=== PATIENT | female | born 1925 | race Caucasian/White ===

== ENCOUNTER 2016-09-09 16:05 | Inpatient (IN) | payer MEDICARE, BC ==
[~2016-09-09] VITALS: Ht 167.6 cm; Wt 72.1 kg
[2016-09-09] VITALS (8 sets, daily range): BP systolic 132–219; BP diastolic 62–105; PULSE 87–123; RESP 14–20; TEMP 97.7; O2SAT 92–97
[~2016-09-09 16:05] MED LIST: AMLO10 PO; CLIN150 PO; CYAN1000P IM; IRBE1TAB39 PO; LASI20TA PO; LIPI40TA PO; POTA-243 PO; PRAV40TA PO; SYNT112T PO; TOPR200T PO; TREN400T PO
[2016-09-09] MEDS ORDERED: SODIUM CHLORID 0.9% 500 ML INJ 500 ML IV ONE (16:30)
[2016-09-09] MEDS ORDERED: DILTIAZEM HCL 25 MG/5 ML VIAL IV ONE (16:30)
[2016-09-09] MEDS ORDERED: MORPHINE SULFATE 4 MG/ML INJ IV PUSH ONE (16:30)
[2016-09-09] MEDS ORDERED: SODIUM CHLORIDE 0.9% FLUSH 10 ML FLUSH IVF PRN (16:30)
[2016-09-09] MEDS ORDERED: ONDANSETRON HCL 4 MG/2 ML VIAL IVP ONE (16:30)
--- NOTE | 2016-09-09 16:35 | PD ---
HPI Chief Complaint: Fall Time Seen by Provider: 16:20 Travel History International Travel<30 days: No Contact w/Intl Traveler<30days: No Traveled to known affect area: No History of Present Illness HPI The patient is a 89-year-old female who presents emergency department after she fell off a stool at home. The patient states she was sitting on a stool when she turned to look in the kitchen and subsequently fell off the stool. The patient landed on her left side striking her left hip and left shoulder. She denies any head injury or neck pain after the fall. However, she was able to ambulate. The patient states she lives alone and thinks she fell last Thursday onto the floor. According to EMS the patient had a shortened and rotated left lower extremity. The patient does have a history of atrial fibrillation and was noted to be in RVR according to EMS, she received Cardizem 20 mg intravenously prior to arrival. The patient does complain of left hip pain that radiates into the left knee with a history of left knee osteoarthritis. The patient's pain is moderate, worse with movement, minimally alleviated at rest. She denies any headache, neck pain, chest pain, shortness of breath, nausea, vomiting, or abdominal pain. PFSH Past Medical History Arthritis: Yes High Cholesterol: Yes Cerebrovascular Accident: Yes (TIA APPROX 10 YEARS AGO LEFT SIDE WEAKNESS MOSTLY HIP AND LEG) Diminished Hearing: No Hypertension: Yes Thyroid Disease: Yes Menopausal: Yes Past Surgical History Abdominal Surgery: Yes (CYST REMOVED TO RIGHT LOWER ABD AREA REMOVED) Appendectomy: Yes Family History Narrative Family History Noncontributory Social History Alcohol Use: No Tobacco Use: No Substance Use: No Allergies-Medications (Allergen,Severity, Reaction): Coded Allergies: No Known Allergies (Verified , 03/14/10) Reported Meds & Prescriptions Reported Meds & Active Scripts Active Review of Systems Except as stated in HPI: all other systems reviewed are Neg General / Constitutional: No: Fever HENT: No: Headaches, Lightheadedness, Neck Pain Cardiovascular: No: Chest Pain or Discomfort Respiratory: No: Wheezing Gastrointestinal: No: Nausea, Vomiting, Abdominal Pain Musculoskeletal: Positive: Limited ROM, Pain Neurologic: No: Weakness, Dizziness, Paresthesia, Sensory Disturbance Physical Exam Narrative GENERAL: Awake, alert, pleasant 89-year-old female who appears her stated age and is in no acute respiratory distress. SKIN: Focused skin assessment warm/dry. HEAD: Atraumatic. Normocephalic. EYES: Pupils equal and round. No scleral icterus. No injection or drainage. ENT: No nasal bleeding or discharge. Dry mucous membranes. Upper dentures in place, no lower teeth are dentures noted. NECK: Trachea midline. No JVD. CARDIOVASCULAR: Irregularly irregular with a heart rate in the 120s. No audible murmur. RESPIRATORY: No accessory muscle use. Clear to auscultation. Breath sounds equal bilaterally. GASTROINTESTINAL: Abdomen soft, non-tender, nondistended. No rebound tenderness. MUSCULOSKELETAL: The left lower extremity is shortened and externally rotated. Superficial varicosities of the feet noted. Tenderness over the distal aspect the left femur and proximal left hip. Positive distal pulses via Doppler bilaterally. NEUROLOGICAL: Awake and alert. No obvious cranial nerve deficits. Motor grossly within normal limits. Normal speech. Patient is oriented to person, place, did not know the current date. Back: No tenderness over the thoracic or lumbar vertebrae. PSYCHIATRIC: Appropriate mood and affect; insight and judgment normal. Data Data Last Documented VS Vital Signs Date Time Temp Pulse Resp B/P Pulse Ox O2 Delivery O2 Flow Rate FiO2 09/09/16 17:10 87 18 141/62 97 Nasal Cannula 4 09/09/16 16:11 97.7 Orders Electrocardiogram (09/09/16 16:20) Complete Blood Count With Diff (09/09/16 16:20) Comprehensive Metabolic Panel (09/09/16 16:20) Prothrombin Time / Inr (Pt) (09/09/16 16:20) Act Partial Throm Time (Ptt) (09/09/16 16:20) Urinalysis - C+S If Indicated (09/09/16 16:20) Type And Screen (09/09/16 16:20) Chest, Single Ap (09/09/16 16:20) Femur (Ap & Lat/2vws) (09/09/16 16:20) Pelvis, Ap Only (Routine) (09/09/16 16:20) Iv Access Insert/Monitor (09/09/16 16:20) Urinary Catheter Insert/Apply (09/09/16 16:20) Oximetry (09/09/16 16:20) Ice/Cold Pack (09/09/16 16:20) Ecg Monitoring (09/09/16 16:20) Morphine Inj (Morphine Inj) (09/09/16 16:30) Ondansetron Inj (Zofran Inj) (09/09/16 16:30) Sodium Chloride 0.9% Flush (Ns Flush) (09/09/16 16:30) Diet Npo (09/09/16 Dinner) Diltiazem Inj (Cardizem Inj) (09/09/16 16:30) Sodium Chlorid 0.9% 500 Ml Inj (Ns 500 M (09/09/16 16:30) Creatine Kinase (Cpk) (09/09/16 16:20) Troponin I (09/09/16 16:20) Admit Order (Ed Use Only) (09/09/16 17:53) Aspirin Chew (Aspirin Chew) (09/09/16 18:00) Labs Laboratory Tests Test 09/09/16 16:25 White Blood Count 20.7 TH/MM3 Red Blood Count 4.25 MIL/MM3 Hemoglobin 13.9 GM/DL Hematocrit 42.3 % Mean Corpuscular Volume 99.6 FL Mean Corpuscular Hemoglobin 32.8 PG Mean Corpuscular Hemoglobin 32.9 % Concent Red Cell Distribution Width 14.1 % Platelet Count 171 TH/MM3 Mean Platelet Volume 9.4 FL Neutrophils (%) (Auto) 89.6 % Lymphocytes (%) (Auto) 2.4 % Monocytes (%) (Auto) 7.5 % Eosinophils (%) (Auto) 0.1 % Basophils (%) (Auto) 0.4 % Neutrophils # (Auto) 18.5 TH/MM3 Lymphocytes # (Auto) 0.5 TH/MM3 Monocytes # (Auto) 1.6 TH/MM3 Eosinophils # (Auto) 0.0 TH/MM3 Basophils # (Auto) 0.1 TH/MM3 CBC Comment DIFF FINAL Differential Comment Prothrombin Time 11.6 SEC Prothromb Time International 1.0 RATIO Ratio Activated Partial 28.9 SEC Thromboplast Time Sodium Level 145 MEQ/L Potassium Level 3.5 MEQ/L Chloride Level 107 MEQ/L Carbon Dioxide Level 26.0 MEQ/L Anion Gap 12 MEQ/L Blood Urea Nitrogen 22 MG/DL Creatinine 0.83 MG/DL Estimat Glomerular Filtration 65 ML/MIN Rate Random Glucose 99 MG/DL Calcium Level 9.2 MG/DL Total Bilirubin 1.8 MG/DL Aspartate Amino Transf 31 U/L (AST/SGOT) Alanine Aminotransferase 27 U/L (ALT/SGPT) Alkaline Phosphatase 118 U/L Total Creatine Kinase 139 U/L Troponin I 0.06 NG/ML Total Protein 6.1 GM/DL Albumin 3.0 GM/DL Blood Type A POSITIVE Antibody Screen NEGATIVE MDM Medical Decision Making Medical Screen Exam Complete: Yes Emergency Medical Condition: Yes Medical Record Reviewed: Yes Interpretation(s) EKG reveals a fibrillation with RVR with a rate of 118. Nonspecific T-wave inversions in V5, V6, 1, and aVL. Last Impressions Pelvis X-Ray 09/09/[id number] Signed Impressions: Service Date/Time: Friday, September 09, 2016 16:34 - CONCLUSION: Acute comminuted intertrochanteric fracture of the left proximal femur. Degenerative changes and scoliosis of the lower lumbar spine. Degenerative changes involving the hip joints bilaterally. Cornelio Ortega MD Femur X-Ray 09/09/[id number] Signed Impressions: Service Date/Time: Friday, September 09, 2016 16:34 - CONCLUSION: Acute comminuted intertrochanteric fracture of the left proximal femur. Cornelio Ortega MD Chest X-Ray 09/09/161619 Signed Impressions: Service Date/Time: Friday, September 09, 2016 16:36 - CONCLUSION: 1. Cardiomegaly with mild positive fluid balance. 2. Elevation of the left hemidiaphragm of unknown chronicity. 3. Mild bibasilar airspace disease and small bilateral pleural effusions likely related to positive fluid balance and atelectasis. 4. Mild L1 superior endplate compression deformity of unknown chronicity given lack of recent prior exams. Consider MRI examination for further evaluation if patient has focal pain on palpation of the L2 spinous process. Edmond Montes MD Laboratory Tests Test 09/09/16 16:25 White Blood Count 20.7 TH/MM3 Red Blood Count 4.25 MIL/MM3 Hemoglobin 13.9 GM/DL Hematocrit 42.3 % Mean Corpuscular Volume 99.6 FL Mean Corpuscular Hemoglobin 32.8 PG Mean Corpuscular Hemoglobin 32.9 % Concent Red Cell Distribution Width 14.1 % Platelet Count 171 TH/MM3 Mean Platelet Volume 9.4 FL Neutrophils (%) (Auto) 89.6 % Lymphocytes (%) (Auto) 2.4 % Monocytes (%) (Auto) 7.5 % Eosinophils (%) (Auto) 0.1 % Basophils (%) (Auto) 0.4 % Neutrophils # (Auto) 18.5 TH/MM3 Lymphocytes # (Auto) 0.5 TH/MM3 Monocytes # (Auto) 1.6 TH/MM3 Eosinophils # (Auto) 0.0 TH/MM3 Basophils # (Auto) 0.1 TH/MM3 CBC Comment DIFF FINAL Differential Comment Prothrombin Time 11.6 SEC Prothromb Time International 1.0 RATIO Ratio Activated Partial 28.9 SEC Thromboplast Time Sodium Level 145 MEQ/L Potassium Level 3.5 MEQ/L Chloride Level 107 MEQ/L Carbon Dioxide Level 26.0 MEQ/L Anion Gap 12 MEQ/L Blood Urea Nitrogen 22 MG/DL Creatinine 0.83 MG/DL Estimat Glomerular Filtration 65 ML/MIN Rate Random Glucose 99 MG/DL Calcium Level 9.2 MG/DL Total Bilirubin 1.8 MG/DL Aspartate Amino Transf 31 U/L (AST/SGOT) Alanine Aminotransferase 27 U/L (ALT/SGPT) Alkaline Phosphatase 118 U/L Total Creatine Kinase 139 U/L Troponin I 0.06 NG/ML Total Protein 6.1 GM/DL Albumin 3.0 GM/DL Blood Type A POSITIVE Antibody Screen NEGATIVE Differential Diagnosis Differential diagnosis includes A. fib with RVR, pelvic fracture, hip fracture, femur fracture, dislocation, rhabdomyolysis, dehydration, UTI. Narrative Course IV was established, labs are drawn and sent, and the patient was placed on cardiac telemetry monitoring and continuous pulse oximetry monitoring. EKG was ordered and interpreted. The patient received Cardizem 20 g intravenously by EMS prior to arrival, however, still had A. fib with RVR with elevated blood pressure, therefore, was administered Cardizem 15 mg intravenously and morphine 4 mg intravenously. The patient was also placed on IV fluids and received Zofran. X-ray of the pelvis, femur, and chest were obtained. Type and screen was sent to lab. Acosta catheter was ordered. Chest x-ray reveals what appears to be mild pulmonary edema and/or atelectasis. X-ray the left hand reveals a left intertrochanteric fracture. The patient's heart rate did improve into the 70s with the IV Cardizem, troponin was positive at 0.06, most likely related to her A. fib with RVR. The patient was administered aspirin 162 mg orally. The patient will be admitted for A. fib with RVR with left intertrochanteric fracture. The patient's primary physician is a physician in the [facility] who does not have privileges, therefore, the on-call medical service was paged for admission. Physician Communication Physician Communication The on-call medical service was paged for admission. I discussed the patient with Dr. Costa who agrees with admission. Diagnosis Primary Impression: Intertrochanteric fracture of left femur Qualified Code: S72.142A - Closed displaced intertrochanteric fracture of left femur, initial encounter Additional Impression: Atrial fibrillation with RVR Admitting Information Admitting Physician Requests: Admit Condition: Stable Zach Lubin MD Sep 09, 2016 16:35
[2016-09-09 17:02] LABS: AUTOMATED NEUTROPHIL # 18.5 TH/MM3 (1.8-7.7); BASOPHIL # 0.1 TH/MM3 (0-0.2); BASOPHIL % 0.4 % (0.0-2.0); EOSINOPHIL % 0.1 % (0.0-4.0); HEMATOCRIT 42.3 % (35.0-46.0); HEMO FLAGS DIFF FINAL; LYMPH % 2.4 % (9.0-44.0); LYMPHOCYTE # 0.5 TH/MM3 (1.0-4.8); MEAN CELL VOLUME 99.6 FL (80.0-100.0); MEAN CORPUSCULAR HEMOGLOBIN 32.8 PG (27.0-34.0); MEAN CORPUSCULAR HGB CONC 32.9 % (32.0-36.0); MONO % 7.5 % (0.0-8.0); NEUT % 89.6 % (16.0-70.0); PLATELET COUNT 171 TH/MM3 (150-450); RED BLOOD COUNT 4.25 MIL/MM3 (4.00-5.30); RED CELL DISTRIBUTION WIDTH 14.1 % (11.6-17.2); WHITE BLOOD COUNT 20.7 TH/MM3 (4.0-11.0)
--- NOTE | 2016-09-09 17:02 | RADRPT ---
EXAM DATE/TIME: 09/09/2016 16:34 [facility] COMPARISON: No previous studies available for comparison. INDICATIONS : Trauma. Left hip pain after fall. MEDICAL HISTORY : None. SURGICAL HISTORY : None. ENCOUNTER: Initial ACUITY: 1 day PAIN SCORE: 10/10 LOCATION: Pelvis. FINDINGS: There is an acute comminuted intertrochanteric fracture of the left proximal femur. Degenerative alexander ges and scoliosis of the visualized portion of the lower lumbar spine are noted. Degenerative changes are also noted involving the hip joints bilaterally. CONCLUSION: Acute comminuted intertrochanteric fracture of the left proximal femur. Degenerative changes and scoliosis of the lower lumbar spine. Degenerative changes involving the hip joints bilate edward. Cornelio rOtega MD on September 09, 2016 at 16:56 Board Certified Radiologist. This report was verified electronically.
[2016-09-09 17:12] LABS: APTT (PATIENT) 28.9 SEC (24.3-30.1); PROTHROMBIN TIME - PATIENT 11.6 SEC (9.8-11.6)
--- NOTE | 2016-09-09 17:12 | RADRPT ---
EXAM DATE/TIME: 09/09/2016 16:36 [facility] COMPARISON: No previous studies available for comparison. INDICATIONS : Chest pain after fall. MEDICAL HISTORY : Hypercholesterolemia. Hypertension TIA. SURGICAL HISTORY : None. ENCOUNTER: Initial ACUITY: 1 day PAIN SCORE: Non-responsive. LOCATION: Bilateral chest FINDINGS: There is elevation of the left hemidiaphragm with bilateral mild lower lobe airspace disease and trac e pleural effusion versus pleural thickening. Lungs are hyperaerated with diffuse interstitial promin ence and patchy airspace opacities bilaterally. Cardiac silhouette is enlarged. There is mild nayan imer deformity of the L2 vertebral body of unknown chronicity given lack of recent prior comparisons. CONCLUSION: 1. Cardiomegaly with mild positive fluid balance. 2. Elevation of the left hemidiaphragm of unknown chronicity. 3. Mild bibasilar airspace disease and small bilateral pleural effusions likely related to positive f luid balance and atelectasis. 4. Mild L1 superior endplate compression deformity of unknown chronicity given lack of recent prior e xams. Consider MRI examination for further evaluation if patient has focal pain on palpation of the L 2 spinous process. Edmond Montes MD on September 09, 2016 at 17:05 Board Certified Radiologist. This report was verified electronically.
--- NOTE | 2016-09-09 17:13 | RADRPT ---
EXAM DATE/TIME: 09/09/2016 16:34 [facility] COMPARISON: No previous studies available for comparison. INDICATIONS : Left femur pain after fall. MEDICAL HISTORY : None. SURGICAL HISTORY : None. ENCOUNTER: Initial ACUITY: 1 day PAIN SCORE: 10/10 LOCATION: Left hip. FINDINGS: There is an acute comminuted intertrochanteric fracture of the left proximal femur. CONCLUSION: Acute comminuted intertrochanteric fracture of the left proximal femur. Cornelio Ortega MD on September 09, 2016 at 17:07 Board Certified Radiologist. This report was verified electronically.
[2016-09-09 17:31] LABS: ANION GAP 12 MEQ/L (5-15); AST (GOT) 31 U/L (15-37); BLOOD UREA NITROGEN 22 MG/DL (7-18); CHLORIDE 107 MEQ/L (98-107); GLOMERULAR FILTRATION RATE 65 ML/MIN (>89); POTASSIUM 3.5 MEQ/L (3.5-5.1); SODIUM (NA) 145 MEQ/L (136-145)
[2016-09-09 17:35] LABS: ALKALINE PHOSPHATASE 118 U/L (45-117); ALT (GPT) 27 U/L (10-53); CREATINE KINASE 139 U/L (26-192); TOTAL BILIRUBIN ADULT 1.8 MG/DL (0.2-1.0)
[2016-09-09] MEDS ORDERED: ASPIRIN 81 MG CHEW TAB CHEW ONE (18:00)
[2016-09-09 19:02] LABS: BACTERIA, URINE MANY /hpf; BLOOD, URINE TRACE (NEG); GLUCOSE,URINE NEG (NEG); KETONE, URINE 10 mg/dL (NEG); NITRITE,URINE NEG (NEG); PH, URINE 6.5 (5.0-8.5); URINE COLOR YELLOW (YELLW/STRAW)
[2016-09-09 19:04] LABS: COMMENT (UR) CATH-CULTURE IND; CULTURE IF INDICATED CATH CULTURE IND
[2016-09-09] MEDS ORDERED: SODIUM CHLORIDE 0.9% FLUSH 10 ML FLUSH IV FLUSH PRN (20:45)
[2016-09-09] MEDS ORDERED: NALOXONE HCL 0.4 MG/ML AMP IV PRN (20:45)
[2016-09-09] MEDS ORDERED: SODIUM CHLORIDE 0.9% FLUSH 10 ML FLUSH IV FLUSH SCH (21:00)
[2016-09-09] MEDS: cefTRIAXone INJ 1,000 MG in SODIUM CHLORIDE 0.9% INJ 100 ML IV SCH (21:51)
--- NOTE | 2016-09-09 21:54 | HHI.HP ---
[facility] Unknown Admission Diagnosis left intertrochanteric fracture, A. fib with RVR Diagnoses: (1) Atrial fibrillation with RVR (2) Intertrochanteric fracture of left femur Chief Complaint: fall at home Travel History International Travel<30 Days: No Contact w/Intl Traveler <30 Da: No Traveled to Known Affected Are: No History of Present Illness Written by Jennifer Crouch, acting as scribe for Dr. Guillen on 09/09/16 at 21:21. Difficult history to obtain; patient has some mild confusion - short term memory impairment likely secondary to UTI. The patient states she was sitting at the kitchen table on Thursday; turned around on a stool she was sitting on; the stool toppled over and she fell on the floor on her buttocks with most of the impact occurring on the right side when she hit a kitchen cabinet; the patient states that she did not pass out; did not hit her head. She called her son who called her doctor who alerted EMS. The patient states that the ambulance brought her to [facility], she stayed overnight and she was sent home. Does not drive. The patient reports that she lives alone. Her 2 years ago. The patient's son lives in [place]. Wheezing, chest tightness, and shortness of breath for a couple of days prior to fall - worse at night. Patient reports a history of atrial fibrillation, hypertension, CVA, hypothyroidism. No dizziness, n/v/d, hematuria, dysuria, black or red colored stool. Has been riding a scooter for about [address] 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 Review of Systems Except as stated in HPI: all other systems reviewed are Neg Past Family Social History Past Medical History Atrial fibrillation s/p ablation Hypertension - takes Lopressor and one more antihypertensive medication . Past Surgical History Appendectomy Partial colectomy? Colonoscopy . Reported Medications awaiting medication reconciliation . Allergies: Coded Allergies: No Known Allergies (Verified , 09/09/16) Active Ordered Medications Current Medications Morphine Sulfate (Morphine Inj) 2 mg ONCE ONCE IV PUSH Last administered on 16:56; Start 09/09/16 at 16:30; Stop 09/09/16 at 16:31; Status DC Ondansetron HCl (Zofran Inj) 4 mg ONCE ONCE IVP Last administered on 16:55; Start 09/09/16 at 16:30; Stop 09/09/16 at 16:31; Status DC Sodium Chloride (NS Flush) 2 ml UNSCH PRN IVF FLUSH AFTER USING IV ACCESS; Start 09/09/16 at 16:30; Stop 09/09/16 at 20:54; Status DC Diltiazem HCl 15 mg 15 mg ONCE ONCE IV Last administered on 09/09/16 16:56; Start 09/09/16 at 16:30; Stop 09/09/16 at 16:31; Status DC Sodium Chloride (NS 500 ml Inj) 500 ml @ 500 mls/hr BOLUS ONCE IV Last administered on 09/09/16 16:57; Start 09/09/16 at 16:30; Stop 09/09/16 at 17:29 ; Status DC Aspirin (Aspirin Chew) 162 mg ONCE ONCE CHEW ; Start 09/09/16 at 18:00; Stop at 18:01; Status DC Sodium Chloride (NS Flush) 2 ml UNSCH PRN IV FLUSH FLUSH AFTER USING IV ACCESS ; Start 09/09/16 at 20:45 Sodium Chloride (NS Flush) 2 ml BID IV FLUSH ; Start 09/09/16 at 21:00 Naloxone HCl 0.4 mg 0.4 mg UNSCH PRN IV SEE LABEL COMMENTS; Start 09/09/16 at 20:45 Ceftriaxone Sodium/Sodium Chloride (Rocephin Inj/NS Inj) 100 ml @ 200 mls/hr Q24H IV ; Start 09/09/16 at 21:00 . Family History Sisters and father with heart problems . Social History Tobacco: Quit smoking many years ago Alcohol: extremely rare social use . Physical Exam Vital Signs Vital Signs Date Time Temp Pulse Resp B/P Pulse Ox O2 Delivery O2 Flow Rate FiO2 09/09/16 19:00 97 14 155/89 96 Nasal Cannula 4 09/09/16 19:00 97 14 95 Nasal Cannula 4 09/09/16 18:37 102 18 161/91 95 Nasal Cannula 4 09/09/16 17:10 87 18 141/62 97 Nasal Cannula 4 09/09/16 16:25 123 18 153/75 92 Room Air 09/09/16 16:24 92 Room Air 09/09/16 16:20 123 20 92 Room Air 09/09/16 16:11 97.7 110 20 219/105 Physical Exam GENERAL: This is an elderly female patient, in no apparent distress. SKIN: No rashes, ecchymoses or lesions. Cool and dry. HEAD: Atraumatic. Normocephalic. EYES: No scleral icterus. No injection or drainage. ENT: Nose without bleeding, purulent drainage. NECK: Trachea midline. No JVD or lymphadenopathy. CARDIOVASCULAR: Regular rate and rhythm without murmurs, gallops, or rubs. Aortic area with systolic murmur. Left lower extremity larger and more taut, erythematous but not hot to touch. RESPIRATORY: Breath sounds diminished, equal bilaterally. No wheezes, rales, or rhonchi. GASTROINTESTINAL: Abdomen soft, non-tender, nondistended. No guarding. MUSCULOSKELETAL: Extremities without clubbing, cyanosis. NEUROLOGICAL: Awake and alert; confused with short term memory impairment likely secondary to UTI. . Laboratory Laboratory Tests Test 09/09/16 09/09/16 16:25 18:35 White Blood Count 20.7 Red Blood Count 4.25 Hemoglobin 13.9 Hematocrit 42.3 Mean Corpuscular Volume 99.6 Mean Corpuscular Hemoglobin 32.8 Mean Corpuscular Hemoglobin 32.9 Concent Red Cell Distribution Width 14.1 Platelet Count 171 Mean Platelet Volume 9.4 Neutrophils (%) (Auto) 89.6 Lymphocytes (%) (Auto) 2.4 Monocytes (%) (Auto) 7.5 Eosinophils (%) (Auto) 0.1 Basophils (%) (Auto) 0.4 Neutrophils # (Auto) 18.5 Lymphocytes # (Auto) 0.5 Monocytes # (Auto) 1.6 Eosinophils # (Auto) 0.0 Basophils # (Auto) 0.1 CBC Comment DIFF FINAL Differential Comment Prothrombin Time 11.6 Prothromb Time International 1.0 Ratio Activated Partial 28.9 Thromboplast Time Sodium Level 145 Potassium Level 3.5 Chloride Level 107 Carbon Dioxide Level 26.0 Anion Gap 12 Blood Urea Nitrogen 22 Creatinine 0.83 Estimat Glomerular Filtration 65 Rate Random Glucose 99 Calcium Level 9.2 Total Bilirubin 1.8 Aspartate Amino Transf 31 (AST/SGOT) Alanine Aminotransferase 27 (ALT/SGPT) Alkaline Phosphatase 118 Total Creatine Kinase 139 Troponin I 0.06 Total Protein 6.1 Albumin 3.0 Blood Type A POSITIVE Antibody Screen NEGATIVE Urine Color YELLOW Urine Turbidity HAZY Urine pH 6.5 Urine Specific [place] 1.015 Urine Protein 30 Urine Glucose (UA) NEG Urine Ketones 10 Urine Occult Blood TRACE Urine Nitrite NEG Urine Bilirubin NEG Urine Urobilinogen LESS THAN 2.0 Urine Leukocyte Esterase LARGE Urine RBC 2 Urine WBC 48 Urine Amorphous Sediment RARE Urine Bacteria MANY Microscopic Urinalysis Comment CATH-CULTURE IND Date/Time Procedure Status Source Growth 09/09/16 18:35 Urine Culture Received Urine Catheterized Urine Pending Result Diagram: 09/09/16 1625 09/09/16 162 Imaging Last Impressions Pelvis X-Ray 09/09/16 1620 Signed Impressions: Service Date/Time: Friday, September 09, 2016 16:34 - CONCLUSION: Acute comminuted intertrochanteric fracture of the left proximal femur. Degenerative changes and scoliosis of the lower lumbar spine. Degenerative changes involving the hip joints bilaterally. Cornelio Ortega MD Femur X-Ray 09/09/16 1620 Signed Impressions: Service Date/Time: Friday, September 09, 2016 16:34 - CONCLUSION: Acute comminuted intertrochanteric fracture of the left proximal femur. Cornelio Ortega MD Chest X-Ray 09/09/160 Signed Impressions: Service Date/Time: Friday, September 09, 2016 16:36 - CONCLUSION: 1. Cardiomegaly with mild positive fluid balance. 2. Elevation of the left hemidiaphragm of unknown chronicity. 3. Mild bibasilar airspace disease and small bilateral pleural effusions likely related to positive fluid balance and atelectasis. 4. Mild L1 superior endplate compression deformity of unknown chronicity given lack of recent prior exams. Consider MRI examination for further evaluation if patient has focal pain on palpation of the L2 spinous process. Edmond Montes MD . Assessment and Plan Problem List: (1) Intertrochanteric fracture of left femur ICD Code: S72.142A Status: Acute (2) Atrial fibrillation with RVR ICD Code: I48.91 Status: Acute Assessment and Plan 89-year-old female status post fall at home with subsequent acute left hip fracture; we have been asked to admit for medical management including atrial fibrillation, bilateral pleural effusions, and UTIs. Acute comminuted intertrochanteric fracture of the left proximal femur - consult orthopedic surgeon - assistance appreciated Atrial fibrillation with RVR - received two doses of IV diltiazem via EMS - continuous cardiac telemetry to monitor rate and for further arrhythmia - check serial cardiac enzymes and EKGs - initial EKGs reviewed - c/w left ventricular hypertrophy; no ischemic changes seen Chest x-ray: cardiomegaly with small bilateral pleural effusions related to positive fluid balance and atelectasis. Left hemidiaphragm elevation of unknown chronicity. - 2-D echocardiogram to assess cardiac structure and function - BNP - Consult patient's hot billet shear operator Dr. Johnson - Strict I and Os - insert gomez catheter for accurate I and Os Left lower extremity swelling - possible fracture Thursday? - bilateral lower extremity doppler to r/o DVT UTI - UA c/w UTI - Ceftriaxone 1 g IV every 24 hours - Await urine culture results and adjust treatment as indicated Hypothyroidism - Check TSH Awaiting medication reconciliation; nursing order written to contact pharmacy or patient's PCP - patient states her son and grandchild do not know her meds. Nurses are to notify ortho of blood thinner name. . This note was transcribed by [email or web address] [Jennifer Crouch]. I, Dr. Pierre Guillen personally performed the history, physical exam, and medical decision making; and confirmed the accuracy of the information in the transcribed note. Authenticated by Dr. Pierre Guillen on 09/09/16 at 21:21. Discussed Condition With ER physician, RN, and patient Physician Certification 2 Midnight Certification Type: Admission for Inpatient Services Order for Inpatient Services The services are ordered in accordance with Medicare regulations or non- Medicare payer requirements, as applicable. In the case of services not specified as inpatient-only, they are appropriately provided as inpatient services in accordance with the 2-midnight benchmark. Estimated LOS (days): 3 days is the estimated time the patient will need to remain in the hospital, assuming treatment plan goals are met and no additional complications. Post-Hospital Plan: Not yet determined Problem Qualifiers (1) Intertrochanteric fracture of left femur: Qualified Code: S72.142A - Closed displaced intertrochanteric fracture of left femur, initial encounter Jennifer Crouch Sep 09, 2016 21:54 Pierre Guillen MD Sep 10, 2016 00:55
[2016-09-10] VITALS (9 sets, daily range): BP systolic 117–140; BP diastolic 59–103; PULSE 72–112; RESP 13–20; TEMP 96.4–97.9; O2SAT 91–99
[2016-09-10] MEDS ORDERED: POTASSIUM CHLORIDE 25 MEQ EFFERVESCENT TAB PO ONE
--- NOTE | 2016-09-10 00:05 | RADRPT ---
EXAM DATE/TIME: 09/09/2016 23:29 [facility] COMPARISON: No previous studies available for comparison. INDICATIONS : Bilateral leg swelling. MEDICAL HISTORY : Hypercholesterolemia. Hypertension. Thyroid disease. Cerebrovascular accident. Arthritis. SURGICAL HISTORY : Appendectomy. Cyst removal. ENCOUNTER: Initial ACUITY: 1 day PAIN SCORE: 6/10 LOCATION: Bilateral legs. TECHNIQUE: Venous ultrasound of the left and right leg was performed from the inguinal ligament to the proximal calf. Real-time, color Doppler and spectral tracing, compression and augmentation techniques were us ed. FINDINGS: RIGHT LEG: There is normal compressibility of the deep venous system from the inguinal region to the proximal ca lf. No echogenic clot is seen in the lumen of the common femoral, femoral, popliteal, and posterior tibial veins. There is a normal response of the venous system to proximal and distal augmentation an d respiration. LEFT LEG: There is normal compressibility of the deep venous system from the inguinal region to the proximal ca lf. No echogenic clot is seen in the lumen of the common femoral, femoral, popliteal, and posterior tibial veins. There is a normal response of the venous system to proximal and distal augmentation an d respiration. CONCLUSION: Normal examination. Carolee Huffman MD on September 10, 2016 at 0:04 Board Certified Radiologist. This report was verified electronically.
[2016-09-10] MEDS ORDERED: METOPROLOL TARTRATE 25 MG TAB PO PRN (00:30)
[2016-09-10] MEDS ORDERED: LACTATED RINGER'S 1000 ML IV PRN (00:30)
[2016-09-10] MEDS ORDERED: CHLORHEXIDINE GLUCONATE 2 % 1 PACK (2 CLOTHS) TOPICAL PRN (00:30)
[2016-09-10] MEDS ORDERED: INSULIN HUMAN REGULAR 1,000 UNITS/10 ML VIAL SQ PRN (00:30)
[2016-09-10] MEDS ORDERED: SODIUM CHLORID 0.9% 500 ML IV PRN (00:30)
[2016-09-10] MEDS ORDERED: POVIDONE IODINE 5% (ANTISEPSIS KIT) 4 APPLICATIONS EACH NARE PRN (00:30)
[2016-09-10] MEDS ORDERED: FUROSEMIDE 20 MG/2 ML VIAL IV PUSH ONE ×2 (01:00)
[2016-09-10] MEDS ORDERED: MORPHINE SULFATE 4 MG/ML INJ IV PUSH PRN ×2 (01:00→08:15)
[2016-09-10 04:15] LABS: AUTOMATED NEUTROPHIL # 12.9 TH/MM3 (1.8-7.7); BASOPHIL # 0.2 TH/MM3 (0-0.2); BASOPHIL % 1.1 % (0.0-2.0); EOSINOPHIL # 0.1 TH/MM3 (0-0.4); EOSINOPHIL % 0.6 % (0.0-4.0); HEMATOCRIT 35.8 % (35.0-46.0); LYMPH % 3.1 % (9.0-44.0); LYMPHOCYTE # 0.5 TH/MM3 (1.0-4.8); MEAN CELL VOLUME 98.6 FL (80.0-100.0); MEAN CORPUSCULAR HEMOGLOBIN 32.9 PG (27.0-34.0); MEAN CORPUSCULAR HGB CONC 33.3 % (32.0-36.0); MONO % 9.5 % (0.0-8.0); NEUT % 85.7 % (16.0-70.0); PLATELET COUNT 156 TH/MM3 (150-450); RED BLOOD COUNT 3.63 MIL/MM3 (4.00-5.30); RED CELL DISTRIBUTION WIDTH 14.2 % (11.6-17.2); WHITE BLOOD COUNT 15.1 TH/MM3 (4.0-11.0)
[2016-09-10 04:17] LABS: HEMO FLAGS AUTO DIFF
[2016-09-10 04:40] LABS: BICARBONATE 28.4 MEQ/L (21.0-32.0)
[2016-09-10 05:47] LABS: OVALOCYTES 1+ (NORMAL); SCAN/DIFF AUTO DIFF CONFIRMED
--- NOTE | 2016-09-10 06:56 | PD.ORT.PN ---
Subjective Subjective Remarks Fall from barstool in kitchen. Unable to ambulate and pain with left hip motion. X-rays show and a left intertrochanteric femur fracture Objective Vitals Vital Signs Date Time Temp Pulse Resp B/P Pulse Ox O2 Delivery O2 Flow Rate FiO2 09/10/16 04:00 97.9 91 20 133/64 97 09/10/16 00:17 96.7 96 20 140/103 91 09/09/16 23:00 106 15 141/74 97 Nasal Cannula 4 09/09/16 21:00 100 14 132/73 97 Nasal Cannula 4 09/09/16 19:00 97 14 155/89 96 Nasal Cannula 4 09/09/16 19:00 97 14 95 Nasal Cannula 4 09/09/16 18:37 102 18 161/91 95 Nasal Cannula 4 09/09/16 17:10 87 18 141/62 97 Nasal Cannula 4 09/09/16 16:25 123 18 153/75 92 Room Air 09/09/16 16:24 92 Room Air 09/09/16 16:20 123 20 92 Room Air 09/09/16 16:11 97.7 110 20 219/105 I/O 09/09/16 09/09/16 09/09/16 09/10/16 09/10/16 09/10/16 07:00 15:00 23:00 07:00 15:00 23:00 Output Total 400 ml Balance -400 ml Output Urine Total 400 ml # Bowel Movements 0 Result Diagram: 09/10/16 0334 09/10/16 0334 Other Results Laboratory Tests Test 09/09/16 16:25 Prothrombin Time 11.6 SEC (9.8-11.6) Prothromb Time International 1.0 RATIO Ratio Imaging Last 24 hours Impressions Pelvis X-Ray 09/09/161619 Signed Impressions: Service Date/Time: Friday, September 09, 2016 16:34 - CONCLUSION: Acute comminuted intertrochanteric fracture of the left proximal femur. Degenerative changes and scoliosis of the lower lumbar spine. Degenerative changes involving the hip joints bilaterally. Cornelio Ortega MD Femur X-Ray 09/09/161619 Signed Impressions: Service Date/Time: Friday, September 09, 2016 16:34 - CONCLUSION: Acute comminuted intertrochanteric fracture of the left proximal femur. Cornelio Ortega MD Chest X-Ray 09/09/16 1620 Signed Impressions: Service Date/Time: Friday, September 09, 2016 16:36 - CONCLUSION: 1. Cardiomegaly with mild positive fluid balance. 2. Elevation of the left hemidiaphragm of unknown chronicity. 3. Mild bibasilar airspace disease and small bilateral pleural effusions likely related to positive fluid balance and atelectasis. 4. Mild L1 superior endplate compression deformity of unknown chronicity given lack of recent prior exams. Consider MRI examination for further evaluation if patient has focal pain on palpation of the L2 spinous process. Edmond Montes MD Objective Remarks Bilateral upper extremities: Full range of motion neurovascularly intact Right lower extremity: Full range of motion and neurovascularly intact Left lower extremity: Pain with hip range of motion. No tenderness with knee or ankle motion. There is some shortening of the leg. Intact sensation distally with good capillary refills Assessment & Plan Assessment and Plan Left intertrochanteric femur fracture Nothing by mouth Surgery this morning with Dr. Gómez for IM nail fixation sign consents Hemanth Ledesma Jr. Sep 10, 2016 06:55
[2016-09-10] MEDS ORDERED: SODIUM CHLOR 0.9% 250 ML INJ 250 ML ONE (07:00)
[2016-09-10] MEDS ORDERED: GENTAMICIN SULFATE 80 MG/2 ML VIAL ONE (07:00)
[2016-09-10] MEDS ORDERED: VANCOMYCIN HCL 1000 MG VIAL ONE (07:00)
[2016-09-10] MEDS ORDERED: ceFAZolin INJ 1,000 MG VIAL ONE (07:00)
--- NOTE | 2016-09-10 07:15 | EKG ---
Date Performed: 09/09/2016 Time Performed: 16:26:56 PTAGE: 89 years EKG: BASELINE ARTIFACT PRESENT. ATRIAL FIBRILLATION WITH RAPID VENTRICULAR RESPONSE Nonspecific ST-T wave changes ABNORMAL ECG COMPARED TO PRIOR ELECTROCARDIOGRAM, Rapid atrial fibrillation and ST- T wave changes are present. PREVIOUS TRACING : 02/05/1997 15.28 DOCTOR: Mario Dugan Interpretating Date/Time 09/10/2016 07:15:00
[2016-09-10] MEDS ORDERED: ACETAMINOPHEN 1000 MG/100 ML VIAL IV ONE (07:22)
[2016-09-10] MEDS ORDERED: BUPIVACAINE/EPINEPHRINE 0.25% PF 10 ML VIAL INFIL ONE (08:01)
--- NOTE | 2016-09-10 08:01 | EKG ---
Date Performed: 09/09/2016 Time Performed: 22:14:41 PTAGE: 89 years EKG: BASELINE ARTIFACT PRESENT. ProbableATRIAL FIBRILLATION WITH RAPID VENTRICULAR RESPONSE Alt jimenez I cannot rule out the presence of some P waves. Nonspecific ST-T wave changes ABNORMAL ECG NO S IGNIFICANT CHANGE FROM PRIOR ELECTROCARDIOGRAM. PREVIOUS TRACING : 09/09/2016 16.26 DOCTOR: Mario Dugan Interpretating Date/Time 09/10/2016 08:01:36
[2016-09-10] MEDS ORDERED: ONDANSETRON HCL 4 MG/2 ML VIAL IVP PRN (08:15)
[2016-09-10] MEDS ORDERED: ERGOCALCIFEROL (VIT D2) 50,000 UNIT CAP PO ONE (08:15)
[2016-09-10] MEDS ORDERED: SODIUM CHLORIDE 0.9% FLUSH 5 ML FLUSH IVF PRN (08:15)
--- NOTE | 2016-09-10 08:21 | PD.OP ---
cc: Hany Goldstein MD Operative Report Date of Surgery: Sep 10, 2016 Preoperative Diagnosis: Displaced left hip intertrochanteric fracture Postoperative Diagnosis: Procedure: Left hip reduction and intramedullary nail fixation Anesthesia: Gen. Surgeon: Hany Goldstein Senior Support Engineer(s): Jeremías Ledesma PA-C The surgical procedure was assisted by my physician assistant service manager. My P.A. presence was necessary throughout this case for the manipulation and positioning of the surgical extremity. My P.A. was assisting me throughout the duration of this procedure. The skill set of a physician assistant service manager was medically necessary to complete this procedure. During the surgical case the surgical corsetier was working at the back table and the physician assistant service manager was directly assisting me. Operation and Findings: Implants used: [11]mm 125 Synthes TFNA short troch nail Plan of activity: Weight-bear as tolerated Patient was seen and evaluated preoperatively. The patient has significant hip pain from intertrochanteric hip fracture. The risk and benefits of surgery were discussed in depth with the patient to include bleeding infection nonunion malunion and need for hip replacement painful hardware as well as medical competitions including but not stroke heart attack and . Informed consent was obtained. Operative site was marked. Patient was brought to the operating room and placed on fracture table. IV sedation was administered by anesthesiologist. Timeout procedure was performed. Hip and leg were prepped with alcohol followed by DuraPrep and draped in the usual sterile fashion. IV antibiotics were given prior to incision. Procedure began with reduction of fracture. Traction was applied. The leg was manipulated to achieve reduction. Excellent reduction was achieved. Fluoroscopy was used to confirm reduction. A three inch incision was made proximal to the trochanter. Subcutaneous tissue was dissected bluntly. Guidepin was placed at the tip of the trochanter and advanced into the femoral canal. Fluoroscopy confirmed appropriate guidepin placement. A opening reamer was placed over the guidepin. The Synthes TFNA nail was attached to the insertion handle. Nail was now placed through the tip of the trochanter into the femoral canal. Fluoroscopy confirmed appropriate nail placement. A second incision was made over the lateral thigh. Cannulas were placed through the insertion handle down to the femur. Guidepin was now placed through the femoral nail into the center of the femoral head. Fluoroscopy confirmed appropriate guidepin placement. Screw length was measured. Cannulated drill was placed over the guidepin. Appropriate length lag screw was now placed. Traction was released and compression was applied. The set screw was now tightened in dynamic mode. Using the insertion handle as a guide a distal interlocking screw was drilled and placed. Final fluoroscopy revealed well aligned fracture with well-placed hardware. Incision was closed with 3-0 Vicryl and darrel. Sterile dressings were applied. Patient was awakened and transferred to recovery room. Hany Goldstein MD Sep 10, 2016 08:21
[2016-09-10] MEDS ORDERED: DO NOT ADM ANY ANTICOAGULANT DRUGS PRN (08:40)
--- NOTE | 2016-09-10 08:46 | MB ---
cc: LEOBARDO ARANA DATE OF ADMISSION 09/09/2016 DATE OF 09/10/2016 REASON FOR CONSULTATION Left hip intertrochanteric fracture. CONSULTING PHYSICIAN Dr. Hemanth Coleman HISTORY Ms. Del Valle is an 89-year-old female who had a fall. She states that she was sitting at her kitchen table. The stool fell over. She fell and landed on her left side. She had immediate left hip pain. She presented to the emergency room where x-rays revealed a left hip intertrochanteric fracture. Her fall occurred on Thursday. She complains of low left hip pain. She currently lives alone. The pain is worse with movement and is improved with rest. She is not able to stand or ambulate. She does have a history of atrial fibrillation. Dr. 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 talking books library clerk. She denies dizziness, syncope or loss of consciousness. PAST MEDICAL HISTORY ILLNESSES 1. Hypertension. 2. Atrial fibrillation. SURGERIES 1. Appendectomy. 2. Colectomy. 3. Colonoscopy. ALLERGIES No known drug allergies. MEDICATIONS Please see EMR for complete list of medications. This was reviewed. The patient does not recall her medications. FAMILY HISTORY The patient states that she had a sister and father who had heart problems. She denies any familial medical problems. SOCIAL HISTORY The patient quit smoking many years ago. She drinks alcohol occasionally. REVIEW OF SYSTEMS The patient denies headache, visual changes, neck pain, chest pain, shortness of breath, abdominal pain, nausea, vomiting or recent weight loss. She complains of left hip pain. PHYSICAL EXAMINATION GENERAL: The patient is a thin 89-year female who is awake and alert. She is alert and oriented x 3. She is in no acute distress. VITAL SIGNS: Temperature 97.9, pulse 91, respirations 20, blood pressure 133/64, O2 sat 97% on 4 liters nasal cannula. HEAD: The patient is normocephalic. Pupils are equal. NECK: Soft, nontender. Trachea is midline. ABDOMEN: Soft, nontender, nondistended. EXTREMITIES: Examination of the bilateral upper extremities reveals no pain with shoulder, elbow or wrist motion. She has intact sensation in all fingers. She has good capillary refill in all fingers. Skin is intact to both hands. Examination of the right leg reveals no pain with hip, knee or ankle motion. Skin is intact. Dorsalis pedis pulse is palpable. Examination of the left leg reveals pain with any hip motion. Her left leg is shortened and externally rotated. She has no tenderness around her knee, tibia or ankle. Skin is intact. Dorsalis pedis pulses palpable. X-RAYS X-rays of the left hip was reviewed. X-rays reveal a left hip intertrochanteric fracture. IMPRESSION 1. Atrial fibrillation. 2. Hypertension. 3. Left hip intertrochanteric fracture. 4. Postmenopausal osteoporosis. PLAN The treatment options were discussed with the patient. At this point I would recommend reduction and intramedullary fixation of left hip. The risks of surgery include bleeding, infection, injury to arteries, nerves and blood vessels, nonunion, malunion, painful hardware as well as medical complications including blood clot, stroke, heart attack and . All questions were answered. I will plan on surgery today. A mid-level provider in my office (nurse practitioner or physician assistant football coach) may see this patient on follow-up visits and continue to implement the objectives of this plan including: Starting or adjusting medications, injections , cast application, orthotics, brace application, physical therapy, radiological studies (including x-ray, MRI, CT, ultrasound, bone scan), vascular studies, neurologic studies, specialist consultation, and proceeding with surgical management, as appropriate. MD BEAU Rod/RA /8:28 AM /8:35 AM TIKA
[2016-09-10] MEDS ORDERED: *RESP: ALBUTEROL 2.5 MG/3 ML NEB (PRN) PERIprocedural Use ONLY NEB ONE (08:49)
[2016-09-10] MEDS ORDERED: fentaNYL CITRATE 250 MCG/5 ML AMP ONE (08:52)
[2016-09-10] MEDS ORDERED: SUGAMMADEX SODIUM 200 MG/2 ML VIAL IV PUSH ONE ×2 (08:53)
[2016-09-10] MEDS: CALCIUM/VITAMIN D 250 MG/125 U TAB PO SCH ×3 (09:00→15:30)
[2016-09-10] MEDS: SODIUM CHLORIDE 0.9% FLUSH 5 ML FLUSH IVF SCH ×2 (09:00→21:27)
--- NOTE | 2016-09-10 09:35 | HHI.HP ---
HPI Primary Care Physician Unknown History of Present Illness 89 y/o F with pmhx significant for afib s/p ablation, HTN, CVA, hypothyroidism that presented to the ER via EMS s/p fall. She sustained a right hip fracture and underwent surgery this AM. Also found to have a UTI and afib on RVR. Cardiology for pre-operative clearance and management. She denied chest tightness, and shortness of breath. Dr. 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 Review of Systems Consitutional: DENIES: Fatigue, Fever, Chills, Weight gain, Weight loss Eyes: DENIES: Amaurosis Fug[place], Change in vision HEENT: DENIES: Lightheadedness, Change in hearing Respiratory: DENIES: See HPI, Cough, Snoring, Shortness of breath, Wheezing, Sputum production Cardiovascular: DENIES: See HPI, Chest pain, Palpitations, Syncope, Tachycardia Gastrointestinal: DENIES: Nausea, Vomiting, Change in bowel habits, Reflux, Bloody stools, Melena Genitourinary: DENIES: Urinary incontinence, Difficulty voiding Integumentary: DENIES: Rash Neurologic: DENIES: Tingling or numbness, Memory problems, Poor Balance, Stroke symptoms Musculoskeletal: DENIES: Joint pain, Muscle pain, Limited range of motion, Back pain Psychiatric: DENIES: Anxiety, Depression, Sleep disturbances Hematologic: DENIES: Bruising tendencies, Bleeding tendencies Endocrine: DENIES: Weight gain, Weight loss, Thyroid disease Past Family Social History Allergies: Coded Allergies: No Known Allergies (Verified , 09/09/16) Past Medical History Atrial fibrillation s/p ablation Hypertension Past Surgical History Appendectomy Partial colectomy Colonoscopy Reported Medications Reported Meds & Active Scripts Active Active Ordered Medications Current Medications Medications (Trade) Dose Ordered Sig/Scott Route Start Time Stop Time Status Last Admin Naloxone HCl 0.4 mg 0.4 mg UNSCH PRN IV 09/09/16 20:45 Ceftriaxone Sodium 1000 mg/ Sodium Chloride 100 ml @ 200 mls/hr Q24H IV 09/09/16 21:00 09/09/16 21:51 Lactated Ringer's 1,000 ml @ 30 mls/hr Q24H PRN IV 09/10/16 00:30 09/13/16 00:29 (NS 500 ml Inj) 500 ml @ 30 mls/hr [id number] PRN IV 09/10/16 00:30 09/13/16 00:29 (Morphine Inj) 2 mg Q4HR PRN IV PUSH 09/10/16 01:00 (NS Flush) 2 ml UNSCH PRN IVF 09/10/16 08:15 (NS Flush) 2 ml BID IVF 09/10/16 09:00 Enoxaparin Sodium 30 mg 30 mg Q24H SQ 09/11/16 08:00 (Ancef Inj/NS Inj) 100 ml @ 200 mls/hr Q8H IV 09/10/16 16:00 09/11/16 08:29 (Zofran Inj) 4 mg Q4H PRN IVP 09/10/16 08:15 (Oscal-D 250-125) 250 mg TID PO 09/10/16 09:00 ([place] 7.5-325 Mg) 1 tab Q3H PRN PO 09/10/16 08:15 (Morphine Inj) 3 mg Q3H PRN IV PUSH 09/10/16 08:15 (Vitamin D3) 5,000 units DAILY PO 09/11/16 09:00 Miscellaneous Information ALL NURSING DEPARTME... UNSCH PRN .XX 09/10/16 08:40 09/11/16 08:39 Family History Noncontributory Social History no alcohol, no smoking, no illicit drug use Physical Exam Vital Signs Vital Signs Date Time Temp Pulse Resp B/P Pulse Ox O2 Delivery O2 Flow Rate FiO2 09/10/16 09:00 100 14 125/60 95 Nasal Cannula 2 09/10/16 08:45 108 14 122/58 98 Nasal Cannula 3 09/10/16 08:40 98.2 112 19 143/67 92 Nasal Cannula 6 09/10/16 04:00 97.9 91 20 133/64 97 09/10/16 00:17 96.7 96 20 140/103 91 09/09/16 23:00 106 15 141/74 97 Nasal Cannula 4 09/09/16 21:00 100 14 132/73 97 Nasal Cannula 4 09/09/16 19:00 97 14 155/89 96 Nasal Cannula 4 09/09/16 19:00 97 14 95 Nasal Cannula 4 09/09/16 18:37 102 18 161/91 95 Nasal Cannula 4 09/09/16 17:10 87 18 141/62 97 Nasal Cannula 4 09/09/16 16:25 123 18 153/75 92 Room Air 09/09/16 16:24 92 Room Air 09/09/16 16:20 123 20 92 Room Air 09/09/16 16:11 97.7 110 20 219/105 Physical Exam GENERAL: Well-nourished, well-developed patient. SKIN: Warm and dry. HEAD: Normocephalic. EYES: No scleral icterus. No injection or drainage. NECK: Supple, trachea midline. No JVD or lymphadenopathy. CARDIOVASCULAR: Irr Irr 1/6SEM no gallops, or rubs. RESPIRATORY: Breath sounds equal bilaterally. No accessory muscle use. GASTROINTESTINAL: Abdomen soft, non-tender, nondistended. EXTREMITIES: No cyanosis, or edema. NEUROLOGICAL: Awake, alert, and oriented x 3. Non-focal. Laboratory Laboratory Tests Test 09/09/16 09/09/16 09/09/16 09/10/16 16:25 18:35 22:40 03:34 White Blood Count 20.7 15.1 Red Blood Count 4.25 3.63 Hemoglobin 13.9 11.9 Hematocrit 42.3 35.8 Mean Corpuscular Volume 99.6 98.6 Mean Corpuscular Hemoglobin 32.8 32.9 Mean Corpuscular Hemoglobin 32.9 33.3 Concent Red Cell Distribution Width 14.1 14.2 Platelet Count 171 156 Mean Platelet Volume 9.4 9.6 Neutrophils (%) (Auto) 89.6 85.7 Lymphocytes (%) (Auto) 2.4 3.1 Monocytes (%) (Auto) 7.5 9.5 Eosinophils (%) (Auto) 0.1 0.6 Basophils (%) (Auto) 0.4 1.1 Neutrophils # (Auto) 18.5 12.9 Lymphocytes # (Auto) 0.5 0.5 Monocytes # (Auto) 1.6 1.4 Eosinophils # (Auto) 0.0 0.1 Basophils # (Auto) 0.1 0.2 CBC Comment DIFF FINAL AUTO DIFF Differential Comment AUTO DIFF CONFIRMED Prothrombin Time 11.6 Prothromb Time International 1.0 Ratio Activated Partial 28.9 Thromboplast Time Sodium Level 145 142 Potassium Level 3.5 4.0 Chloride Level 107 105 Carbon Dioxide Level 26.0 28.4 Anion Gap 12 9 Blood Urea Nitrogen 22 26 Creatinine 0.83 0.99 Estimat Glomerular Filtration 65 53 Rate Random Glucose 99 73 Calcium Level 9.2 8.6 Total Bilirubin 1.8 Aspartate Amino Transf 31 (AST/SGOT) Alanine Aminotransferase 27 (ALT/SGPT) Alkaline Phosphatase 118 Total Creatine Kinase 139 153 100 Troponin I 0.06 0.08 0.08 Total Protein 6.1 Albumin 3.0 Blood Type A POSITIVE Antibody Screen NEGATIVE Urine Color YELLOW Urine Turbidity HAZY Urine pH 6.5 Urine Specific [place] 1.015 Urine Protein 30 Urine Glucose (UA) NEG Urine Ketones 10 Urine Occult Blood TRACE Urine Nitrite NEG Urine Bilirubin NEG Urine Urobilinogen LESS THAN 2.0 Urine Leukocyte Esterase LARGE Urine RBC 2 Urine WBC 48 Urine Amorphous Sediment RARE Urine Bacteria MANY Microscopic Urinalysis Comment CATH-CULTURE IND B-Type Natriuretic Peptide 230 Thyroid Stimulating Hormone 12.500 3rd Gen Free Thyroxine 1.31 Ovalocytes 1+ Total Triiodothyronine 74 Date/Time Procedure Status Source Growth 09/09/16 18:35 Urine Culture Received Urine Catheterized Urine Pending Result Diagram: 09/10/16 0334 09/10/16 0334 Imaging Last Impressions Pelvis X-Ray 09/09/161619 Signed Impressions: Service Date/Time: Friday, September 09, 2016 16:34 - CONCLUSION: Acute comminuted intertrochanteric fracture of the left proximal femur. Degenerative changes and scoliosis of the lower lumbar spine. Degenerative changes involving the hip joints bilaterally. Cornelio Ortega MD Femur X-Ray 09/09/161619 Signed Impressions: Service Date/Time: Friday, September 09, 2016 16:34 - CONCLUSION: Acute comminuted intertrochanteric fracture of the left proximal femur. Cornelio Ortega MD Chest X-Ray 09/09/161619 Signed Impressions: Service Date/Time: Friday, September 09, 2016 16:36 - CONCLUSION: 1. Cardiomegaly with mild positive fluid balance. 2. Elevation of the left hemidiaphragm of unknown chronicity. 3. Mild bibasilar airspace disease and small bilateral pleural effusions likely related to positive fluid balance and atelectasis. 4. Mild L1 superior endplate compression deformity of unknown chronicity given lack of recent prior exams. Consider MRI examination for further evaluation if patient has focal pain on palpation of the L2 spinous process. Edmond Montes MD Lower Extremity Ultrasound 09/09/16 0000 Signed Impressions: Service Date/Time: Friday, September 09, 2016 23:29 - CONCLUSION: Normal examination. Carolee Huffman MD Assessment and Plan Problem List: (1) Atrial fibrillation with RVR Assessment and Plan: 89 y/o F s/p hip surgery in the setting of a mechanical fall. Good functional capacity at baseline. No CV complaints prior or after the fall. Recommendations: 1. Resume cardiac home medications (Norvasc 5mg PO daily, Atorvastatin 40mg PO daily, Avapro 300mg PO daily, Digoxin 0.125mcg PO daily, Lasix 20mg PO daily, Metoprolol XL 200mg PO daily, Pradaxa 150mg PO BID) 2. 2-D Echo 3. Telemetry monitoring 4. Digoxin levels 5. Start ASA 81mg PO daily Thank you for the opportunity to participate in the care of this patient (2) Intertrochanteric fracture of left femur (3) hypertension (4) Mixed hyperlipidemia Problem Qualifiers (1) Intertrochanteric fracture of left femur: Qualified Code: S72.142A - Closed displaced intertrochanteric fracture of left femur, initial encounter Bill Bae MD Sep 10, 2016 09:35
[2016-09-10] MEDS ORDERED: HYDR-3580 PO (10:17)
[2016-09-10] MEDS ORDERED: ERGO1CAP30 PO (10:17)
[2016-09-10] MEDS ORDERED: XARE10TA PO (10:17)
[2016-09-10] MEDS ORDERED: WALKER/ADULT/FO1 MIS (10:17)
[2016-09-10] MEDS ORDERED: CALCTAB19 PO (10:17)
[2016-09-10] MEDS ORDERED: PROPOFOL 200 MG/20 ML AMP IV ONE (12:18)
[2016-09-10] MEDS ORDERED: PHENYLEPH/NS 1000 MCG/10 ML SYR IV ONE (12:18)
[2016-09-10] MEDS ORDERED: ONDANSETRON HCL 4 MG/2 ML VIAL IV PUSH ONE (12:18)
[2016-09-10] MEDS ORDERED: DILTIAZEM HCL 50 MG/10 ML VIAL IV ONE (12:19)
--- NOTE | 2016-09-10 12:22 | RADRPT ---
EXAM DATE/TIME: 09/10/2016 08:12 [facility] COMPARISON: No previous studies available for comparison. INDICATIONS : Left hip troch nail. MEDICAL HISTORY : None. SURGICAL HISTORY : None. ENCOUNTER: Initial ACUITY: 1 day PAIN SCORE: Non-responsive. LOCATION: Left hip. FINDINGS: The patient is status post ORIF of left proximal femur fracture with hardware in good position. CONCLUSION: Status post ORIF of left proximal femur fracture with hardware in good position. Cornelio Ortega MD on September 10, 2016 at 12:16 Board Certified Radiologist. This report was verified electronically.
[2016-09-10] MEDS: CHOLECALCIFEROL (VIT D3) 5000 UNIT CAP PO SCH (12:24)
[2016-09-10] MEDS: METOPROLOL TARTRATE 25 MG TAB PO SCH ×2 (12:24→21:27)
[2016-09-10] MEDS: ACETAMINOPHEN/HYDROcodone 325 MG/7.5 MG TAB PO PRN ×2 (12:28→17:39)
--- NOTE | 2016-09-10 14:24 | HHI.PR ---
Subjective Remarks Seen postop. No complaints after surgery. Patient has been tachycardic and holding and remained so after transfer to floor. She has A. fib at baseline. Based on her medical reconciliation she does not appear to be on any rate control treatment. Objective Vital Signs Date Time Temp Pulse Resp B/P Pulse Ox O2 Delivery O2 Flow Rate FiO2 09/10/16 09:45 97.3 110 14 132/72 92 09/10/16 09:30 98.2 111 17 156/66 97 Nasal Cannula 2 09/10/16 09:15 109 17 146/66 96 Nasal Cannula 2 09/10/16 09:00 100 14 125/60 95 Nasal Cannula 2 09/10/16 08:45 108 14 122/58 98 Nasal Cannula 3 09/10/16 08:40 98.2 112 19 143/67 92 Nasal Cannula 6 09/10/16 04:00 97.9 91 20 133/64 97 09/10/16 00:17 96.7 96 20 140/103 91 09/09/16 23:00 106 15 141/74 97 Nasal Cannula 4 09/09/16 21:00 100 14 132/73 97 Nasal Cannula 4 09/09/16 19:00 97 14 155/89 96 Nasal Cannula 4 09/09/16 19:00 97 14 95 Nasal Cannula 4 09/09/16 18:37 102 18 161/91 95 Nasal Cannula 4 09/09/16 17:10 87 18 141/62 97 Nasal Cannula 4 09/09/16 16:25 123 18 153/75 92 Room Air 09/09/16 16:24 92 Room Air 09/09/16 16:20 123 20 92 Room Air 09/09/16 16:11 97.7 110 20 219/105 I/O 09/09/16 09/09/16 09/09/16 09/10/16 09/10/16 09/10/16 07:00 15:00 23:00 07:00 15:00 23:00 Intake Total 1300 ml Output Total 400 ml 250 ml Balance -400 ml 1050 ml Intake Oral 0 ml IV Total 100 ml Other 1200 ml Output Urine Total 400 ml 150 ml Estimated Blood Loss 100 ml # Bowel Movements 0 Result Diagram: 09/10/1633309/10/16333 Objective Remarks GENERAL: NAD, A&Ox3 HEAD: Normocephalic. NECK: Supple, trachea midline. No lymphadenopathy. EYES: No scleral icterus. No injection or drainage. CARDIOVASCULAR: Irregularly irregular rhythm without murmurs, gallops, or rubs. Tachycardia. RESPIRATORY: Breath sounds equal bilaterally. No accessory muscle use. GASTROINTESTINAL: Abdomen soft, non-tender, nondistended. MUSCULOSKELETAL: No cyanosis, or edema. Left femur bandage SKIN: Warm and dry. NEURO: No focal neurological deficitis. A/P Problem List: (1) hypertension (2) Atrial fibrillation with RVR ICD Code: I48.91 (3) Intertrochanteric fracture of left femur ICD Code: S72.142A Assessment and Plan Assessment and Plan 89-year-old female status post surgical repair of left femur fracture. Fracture was secondary to fall at home. A. fib RVR is present postop. Patient started on diltiazem. Acute comminuted intertrochanteric fracture of the left proximal femur Postop repair Or the following When necessary pain treatments Physical therapy Atrial fibrillation with RVR Rate is below 120. Trial of oral diltiazem for now. Upgraded to IV diltiazem if needed Telemetry Cardiac enzymes slightly elevated but stable and likely secondary to A. fib RVR No chest pain Left lower extremity swelling DVT exam negative May be secondary to fracture versus A. fib RVR UTI Continue Rocephin Follow urine cultures Elevated TSH May be reactive T3 and T4 within normal limits DVT prophylaxis Lovenox Problem Qualifiers (1) Intertrochanteric fracture of left femur: Qualified Code: S72.142A - Closed displaced intertrochanteric fracture of left femur, initial encounter Timi Williamson MD Sep 10, 2016 14:24
[2016-09-10] MEDS: DIGOXIN 0.125 MG TAB PO SCH (14:28)
[2016-09-10] MEDS: DILTIAZEM HCL 30 MG TAB PO SCH ×2 (15:30→21:27)
--- NOTE | 2016-09-10 19:29 | RADRPT ---
EXAM DATE/TIME: 09/10/2016 18:59 [facility] COMPARISON: No previous studies available for comparison. INDICATIONS : Right ankle pain MEDICAL HISTORY : None. SURGICAL HISTORY : None. ENCOUNTER: Initial ACUITY: 1 day PAIN SCORE: 10/10 LOCATION: Right entire ankle FINDINGS: Three view exam was performed of the right ankle. The bony structures are in normal alignment. No e vidence of fracture, dislocation, or soft tissue swelling. The ankle mortise is intact. No radiopaq ue foreign bodies are seen. Bony mineralization is normal. CONCLUSION: Within normal limits for age. Be Santiago MD on September 10, 2016 at 19:26 Board Certified Radiologist. This report was verified electronically.
[2016-09-10] MEDS ORDERED: CALCIUM/VITAMIN D 250 MG/125 U TAB PO SCH (21:00)
[2016-09-10] MEDS: cefTRIAXone INJ 1,000 MG in SODIUM CHLORIDE 0.9% INJ 100 ML IV SCH (21:27)
[2016-09-11] VITALS (7 sets, daily range): BP systolic 125–144; BP diastolic 55–78; PULSE 79–118; RESP 17–18; TEMP 96.8–99; O2SAT 92–97
[2016-09-11] MEDS: DILTIAZEM HCL 30 MG TAB PO SCH ×4 (03:31→20:32)
[2016-09-11] MEDS: METOPROLOL TARTRATE 25 MG TAB PO SCH ×3 (05:55→21:38)
--- NOTE | 2016-09-11 06:35 | PD.ORT.PN ---
Subjective Subjective Remarks Resting comfortably. Still complains about some pain in the anterior portion of the right ankle. Objective Vitals Vital Signs Date Time Temp Pulse Resp B/P Pulse Ox O2 Delivery O2 Flow Rate FiO2 09/11/16 05:47 79 130/55 09/11/16 03:05 96.8 80 17 131/74 97 09/10/16 23:16 96.4 83 18 127/65 98 09/10/16 20:10 97.8 112 18 140/59 96 09/10/16 20:00 110 09/10/16 19:04 Nasal Cannula 2.00 09/10/16 16:01 92 09/10/16 16:00 97.7 96 17 131/75 99 09/10/16 12:00 96.8 72 13 117/82 94 09/10/16 09:45 97.3 110 14 132/72 92 09/10/16 09:30 98.2 111 17 156/66 97 Nasal Cannula 2 09/10/16 09:15 109 17 146/66 96 Nasal Cannula 2 09/10/16 09:00 100 14 125/60 95 Nasal Cannula 2 09/10/16 08:45 108 14 122/58 98 Nasal Cannula 3 09/10/16 08:40 98.2 112 19 143/67 92 Nasal Cannula 6 I/O 09/10/16 09/10/16 09/10/16 09/11/16 09/11/16 09/11/16 07:00 15:00 23:00 07:00 15:00 23:00 Intake Total 1540 ml 360 ml 529 ml Output Total 400 ml 450 ml 300 ml Balance -400 ml 1090 ml 60 ml 529 ml Intake Oral 240 ml 360 ml IV Total 100 ml 529 ml Other 1200 ml Output Urine Total 400 ml 350 ml 300 ml Estimated Blood Loss 100 ml # Bowel Movements 0 0 Result Diagram: 09/10/16 0334 09/10/16 0334 Imaging Last 72 hours Impressions Hip X-Ray 09/10/16 0000 Signed Impressions: Service Date/Time: Saturday, September 10, 2016 08:12 - CONCLUSION: Status post ORIF of left proximal femur fracture with hardware in good position. Cornelio Ortega MD Ankle X-Ray 09/10/16 0000 Signed Impressions: Service Date/Time: Saturday, September 10, 2016 18:59 - CONCLUSION: Within normal limits for age. Be Santiago MD Pelvis X-Ray 09/09/16 1620 Signed Impressions: Service Date/Time: Friday, September 09, 2016 16:34 - CONCLUSION: Acute comminuted intertrochanteric fracture of the left proximal femur. Degenerative changes and scoliosis of the lower lumbar spine. Degenerative changes involving the hip joints bilaterally. Cornelio Ortgea MD Femur X-Ray 09/09/161619 Signed Impressions: Service Date/Time: Friday, September 09, 2016 16:34 - CONCLUSION: Acute comminuted intertrochanteric fracture of the left proximal femur. Cornelio Ortega MD Chest X-Ray 09/09/160 Signed Impressions: Service Date/Time: Friday, September 09, 2016 16:36 - CONCLUSION: 1. Cardiomegaly with mild positive fluid balance. 2. Elevation of the left hemidiaphragm of unknown chronicity. 3. Mild bibasilar airspace disease and small bilateral pleural effusions likely related to positive fluid balance and atelectasis. 4. Mild L1 superior endplate compression deformity of unknown chronicity given lack of recent prior exams. Consider MRI examination for further evaluation if patient has focal pain on palpation of the L2 spinous process. Edmond Montes MD Lower Extremity Ultrasound 09/09/16 0000 Signed Impressions: Service Date/Time: Friday, September 09, 2016 23:29 - CONCLUSION: Normal examination. Carolee Huffman MD Last 24 hours Impressions Pelvis X-Ray 09/09/161619 Signed Impressions: Service Date/Time: Friday, September 09, 2016 16:34 - CONCLUSION: Acute comminuted intertrochanteric fracture of the left proximal femur. Degenerative changes and scoliosis of the lower lumbar spine. Degenerative changes involving the hip joints bilaterally. Cornelio Ortega MD Femur X-Ray 09/09/160 Signed Impressions: Service Date/Time: Friday, September 09, 2016 16:34 - CONCLUSION: Acute comminuted intertrochanteric fracture of the left proximal femur. Cornelio rOtega MD Chest X-Ray 09/09/16 1620 Signed Impressions: Service Date/Time: Friday, September 09, 2016 16:36 - CONCLUSION: 1. Cardiomegaly with mild positive fluid balance. 2. Elevation of the left hemidiaphragm of unknown chronicity. 3. Mild bibasilar airspace disease and small bilateral pleural effusions likely related to positive fluid balance and atelectasis. 4. Mild L1 superior endplate compression deformity of unknown chronicity given lack of recent prior exams. Consider MRI examination for further evaluation if patient has focal pain on palpation of the L2 spinous process. Edmond Montes MD Objective Remarks Bilateral upper extremities: Full range of motion neurovascularly intact Right lower extremity: Full range of motion and neurovascularly intact. Mild tenderness to palpation over anterior ankle Left lower extremity: Pain with hip range of motion. No tenderness with knee or ankle motion. There is some shortening of the leg. Intact sensation distally with good capillary refills Assessment & Plan Assessment and Plan Left intertrochanteric femur fracture POD 1 IM nail Right ankle sprain Physical therapy weightbearing as tolerated bilateral lower extremities Lovenox Incentive spirometry Case management for rehabilitation placement Daily dressing changes beginning POD 2 Follow-up appointment with Dr. Goldstein or PA in 2 weeks Hemanth Ledesma Jr. Sep 11, 2016 06:35
[2016-09-11 08:00] LABS: HEMATOCRIT 33.4 % (35.0-46.0); REVIEW FLAG FINAL
[2016-09-11] MEDS: ENOXAPARIN SODIUM 30 MG/0.3 ML SYRINGE SQ SCH (08:04)
[2016-09-11] MEDS: CHOLECALCIFEROL (VIT D3) 5000 UNIT CAP PO SCH (08:05)
[2016-09-11] MEDS: ASPIRIN EC 81 MG TABEC PO SCH (08:05)
[2016-09-11] MEDS: amLODIPine BESYLATE 5 MG TAB PO SCH (08:06)
[2016-09-11] MEDS: DIGOXIN 0.125 MG TAB PO SCH (08:06)
[2016-09-11] MEDS: CALCIUM/VITAMIN D 250 MG/125 U TAB PO SCH ×3 (08:06→18:00)
[2016-09-11] MEDS: SODIUM CHLORIDE 0.9% FLUSH 5 ML FLUSH IVF SCH ×2 (08:06→20:33)
[2016-09-11] MEDS ORDERED: ERGOCALCIFEROL (VIT D2) 50,000 UNIT CAP PO SCH (09:00)
--- NOTE | 2016-09-11 09:57 | HHI.PR ---
Subjective Remarks Hemoglobin at 10.8 this morning. Patient has no complaints. She has started physical therapy. Plan for senior care facility versus inpatient rehabilitation at discharge. Objective Vital Signs Date Time Temp Pulse Resp B/P Pulse Ox O2 Delivery O2 Flow Rate FiO2 09/11/16 07:40 98.4 83 18 141/63 97 09/11/16 05:47 79 130/55 09/11/16 03:05 96.8 80 17 131/74 97 09/10/16 23:16 96.4 83 18 127/65 98 09/10/16 20:10 97.8 112 18 140/59 96 09/10/16 20:00 110 09/10/16 19:04 Nasal Cannula 2.00 09/10/16 16:01 92 09/10/16 16:00 97.7 96 17 131/75 99 09/10/16 12:00 96.8 72 13 117/82 94 I/O 09/10/16 09/10/16 09/10/16 09/11/16 09/11/16 09/11/16 07:00 15:00 23:00 07:00 15:00 23:00 Intake Total 1540 ml 360 ml 769 ml Output Total 400 ml 450 ml 300 ml 250 ml Balance -400 ml 1090 ml 60 ml 519 ml Intake Oral 240 ml 360 ml 240 ml IV Total 100 ml 529 ml Other 1200 ml Output Urine Total 400 ml 350 ml 300 ml 250 ml Estimated Blood Loss 100 ml # Bowel Movements 0 0 0 Result Diagram: 09/11/16 0627 09/10/16 0334 Objective Remarks GENERAL: NAD, A&Ox3 HEAD: Normocephalic. NECK: Supple, trachea midline. No lymphadenopathy. EYES: No scleral icterus. No injection or drainage. CARDIOVASCULAR: Irregularly irregular rhythm without murmurs, gallops, or rubs. Tachycardia. RESPIRATORY: Breath sounds equal bilaterally. No accessory muscle use. GASTROINTESTINAL: Abdomen soft, non-tender, nondistended. MUSCULOSKELETAL: No cyanosis, or edema. Left femur bandage SKIN: Warm and dry. NEURO: No focal neurological deficitis. A/P Problem List: (1) hypertension (2) Atrial fibrillation with RVR ICD Code: I48.91 (3) Intertrochanteric fracture of left femur ICD Code: S72.142A Assessment and Plan Assessment and Plan 89-year-old female status post surgical repair of left femur fracture. Fracture was secondary to fall at home. A. fib RVR has resolved. Continue diltiazem. Heart rate is controlled and blood pressures are stable. Continue physical therapy. Acute comminuted intertrochanteric fracture of the left proximal femur Postop repair Or the following When necessary pain treatments Physical therapy Atrial fibrillation with RVR Rate controlled Continue oral diltiazem Upgraded to IV diltiazem if needed Telemetry Cardiac enzymes slightly elevated but stable and likely secondary to A. fib RVR No chest pain Left lower extremity swelling DVT exam negative May be secondary to fracture versus A. fib RVR UTI Continue Rocephin Follow urine cultures Elevated TSH May be reactive T3 and T4 within normal limits DVT prophylaxis Lovenox Problem Qualifiers (1) Intertrochanteric fracture of left femur: Qualified Code: S72.142A - Closed displaced intertrochanteric fracture of left femur, initial encounter Timi Williamson MD Sep 11, 2016 09:57
[2016-09-11] MEDS: ACETAMINOPHEN/HYDROcodone 325 MG/7.5 MG TAB PO PRN (11:07)
--- NOTE | 2016-09-11 11:57 | PD.CARD.PN ---
Subjective Subjective Remarks no CV complaints Objective Medications Current Medications Medications (Trade) Dose Ordered Sig/Scott Route Start Time Stop Time Status Last Admin Naloxone HCl 0.4 mg 0.4 mg UNSCH PRN IV 09/09/16 20:45 Ceftriaxone Sodium 1000 mg/ Sodium Chloride 100 ml @ 200 mls/hr Q24H IV 09/09/16 21:00 09/10/16 21:27 Lactated Ringer's 1,000 ml @ 30 mls/hr Q24H PRN IV 09/10/16 00:30 09/13/16 00:29 (NS 500 ml Inj) 500 ml @ 30 mls/hr [id number] PRN IV 09/10/16 00:30 09/13/16 00:29 (Morphine Inj) 2 mg Q4HR PRN IV PUSH 09/10/16 01:00 (NS Flush) 2 ml UNSCH PRN IVF 09/10/16 08:15 (NS Flush) 2 ml BID IVF 09/10/16 09:00 (Lovenox Inj) 30 mg Q24H SQ 09/11/16 08:00 09/11/16 08:04 (Zofran Inj) 4 mg Q4H PRN IVP 09/10/16 08:15 (Oscal-D 250-125) 250 mg TID PO 09/10/16 09:00 09/11/16 08:06 ([place] 7.5-325 Mg) 1 tab Q3H PRN PO 09/10/16 08:15 09/11/16 11:07 (Morphine Inj) 3 mg Q3H PRN IV PUSH 09/10/16 08:15 (Vitamin D3) 5,000 units DAILY PO 09/11/16 09:00 09/11/16 08:05 (Norvasc) 5 mg DAILY PO 09/11/16 09:00 09/11/16 08:06 (Lanoxin) 0.125 mg DAILY PO 09/10/16 13:00 09/11/16 08:06 (Lopressor) 25 mg Q8HR PO 09/10/16 14:00 09/11/16 05:55 (Ecotrin Ec) 81 mg DAILY PO 09/11/16 09:00 09/11/16 08:05 (Cardizem) 30 mg Q6H PO 09/10/16 15:00 09/11/16 08:06 Vital Signs / I&O Vital Signs Date Time Temp Pulse Resp B/P Pulse Ox O2 Delivery O2 Flow Rate FiO2 09/11/16 07:40 98.4 83 18 141/63 97 09/11/16 05:47 79 130/55 09/11/16 03:05 96.8 80 17 131/74 97 09/10/16 23:16 96.4 83 18 127/65 98 09/10/16 20:10 97.8 112 18 140/59 96 09/10/16 20:00 110 09/10/16 19:04 Nasal Cannula 2.00 09/10/16 16:01 92 09/10/16 16:00 97.7 96 17 131/75 99 09/10/16 12:00 96.8 72 13 117/82 94 I/O 09/10/16 09/10/16 09/10/16 09/11/16 09/11/16 09/11/16 07:00 15:00 23:00 07:00 15:00 23:00 Intake Total 1540 ml 360 ml 769 ml Output Total 400 ml 450 ml 300 ml 250 ml Balance -400 ml 1090 ml 60 ml 519 ml Intake Oral 240 ml 360 ml 240 ml IV Total 100 ml 529 ml Other 1200 ml Output Urine Total 400 ml 350 ml 300 ml 250 ml Estimated Blood Loss 100 ml # Bowel Movements 0 0 0 Physical Exam GENERAL: Well-nourished, well-developed patient. SKIN: Warm and dry. HEAD: Normocephalic. EYES: No scleral icterus. No injection or drainage. NECK: Supple, trachea midline. No JVD or lymphadenopathy. CARDIOVASCULAR:Irr Irr without murmurs, gallops, or rubs. RESPIRATORY: Breath sounds equal bilaterally. No accessory muscle use. GASTROINTESTINAL: Abdomen soft, non-tender, nondistended. EXTREMITIES: No cyanosis, or edema. NEUROLOGICAL: Awake, alert, and oriented x 3. Non-focal. Laboratory Laboratory Tests Test 09/11/16 06:27 Hemoglobin 10.8 GM/DL Hematocrit 33.4 % Imaging Last Impressions Hip X-Ray 09/10/16 0000 Signed Impressions: Service Date/Time: Saturday, September 10, 2016 08:12 - CONCLUSION: Status post ORIF of left proximal femur fracture with hardware in good position. Cornelio Ortega MD Ankle X-Ray 09/10/16 0000 Signed Impressions: Service Date/Time: Saturday, September 10, 2016 18:59 - CONCLUSION: Within normal limits for age. Be Santiago MD Pelvis X-Ray 09/09/16 1620 Signed Impressions: Service Date/Time: Friday, September 09, 2016 16:34 - CONCLUSION: Acute comminuted intertrochanteric fracture of the left proximal femur. Degenerative changes and scoliosis of the lower lumbar spine. Degenerative changes involving the hip joints bilaterally. Cornelio Ortega MD Femur X-Ray 09/09/16 1620 Signed Impressions: Service Date/Time: Friday, September 09, 2016 16:34 - CONCLUSION: Acute comminuted intertrochanteric fracture of the left proximal femur. Cornelio Ortega MD Chest X-Ray 09/09/16 1620 Signed Impressions: Service Date/Time: Friday, September 09, 2016 16:36 - CONCLUSION: 1. Cardiomegaly with mild positive fluid balance. 2. Elevation of the left hemidiaphragm of unknown chronicity. 3. Mild bibasilar airspace disease and small bilateral pleural effusions likely related to positive fluid balance and atelectasis. 4. Mild L1 superior endplate compression deformity of unknown chronicity given lack of recent prior exams. Consider MRI examination for further evaluation if patient has focal pain on palpation of the L2 spinous process. Edmond Montes MD Lower Extremity Ultrasound 09/09/16 0000 Signed Impressions: Service Date/Time: Friday, September 09, 2016 23:29 - CONCLUSION: Normal examination. K. Angel Luis Huffman MD Assessment and Plan Problem List: (1) Atrial fibrillation with RVR Assessment and Plan: Recommendations: 1. Resume cardiac home medications (Norvasc 5mg PO daily, Atorvastatin 40mg PO daily, Avapro 300mg PO daily, Digoxin 0.125mcg PO daily, Lasix 20mg PO daily, Metoprolol XL 200mg PO daily, 2. Cont Telemetry monitoring 3. OAC with Pradaxa 150mg PO BID (2) Intertrochanteric fracture of left femur (3) hypertension (4) Mixed hyperlipidemia Problem Qualifiers (1) Intertrochanteric fracture of left femur: Qualified Code: S72.142A - Closed displaced intertrochanteric fracture of left femur, initial encounter Bill Bae MD Sep 11, 2016 11:57
--- NOTE | 2016-09-11 17:05 | ECHRPT ---
Indication: LV EF CONCLUSIONS Mild concentric left ventricular hypertrophy. The left atrial size is mildly dilated. The right atrial size is mildly dilated. [id number] mitral valve regurgitation. Calcification of the anterior mitral valve leaflet. Mild aortic valve stenosis. There is mild to moderate tricuspid valve regurgitation. The estimated pulmonary arterial pressure is 47 mmHg. The pulmonary valve is not well visualized. The left ventricular systolic function is mildly reduced with an estimated ejection fraction in the range of 45- 50%. Mild concentric left ventricular hypertrophy. The left atrial size is mildly dilated. The right atrial size is mildly dilated. Jwkm-wr-rnsruuwi mitral valve regurgitation. Calcification of the anterior mitral valve leaflet. Mild aortic valve stenosis. There is mild to moderate tricuspid valve regurgitation. The estimated pulmonary arterial pressure is 47 mmHg. The pulmonary valve is not well visualized. The left ventricular systolic function is mildly reduced with an estimated ejection fraction in the range of 45- 50%. Mild concentric left ventricular hypertrophy. The left atrial size is mildly dilated. The right atrial size is mildly dilated. Oddk-nf-[id number] mitral valve regurgitation. Calcification of the anterior mitral valve leaflet. Mild aortic valve stenosis. There is mild to moderate tricuspid valve regurgitation. The estimated pulmonary arterial pressure is 47 mmHg. The pulmonary valve is not well visualized. BP: 155 / 89 HR: 97 Rhythm: Sinus MEASUREMENTS (Male / Female) Normal Values Technical Quality:Good 2D ECHO LV Diastolic Diameter PLAX 4.5 cm 4.2 - 5.9 / 3.9 - 5.3 cm LV Systolic Diameter PLAX 3.9 cm IVS Diastolic Thickness 1.4 cm 0.6 - 1.0 / 0.6 - 0.9 cm LVPW Diastolic Thickness 1.4 cm 0.6 - 1.0 / 0.6 - 0.9 cm LV Relative Wall Thickness 0.6 LVOT Diameter 2.0 cm M-MODE Aortic Root Diameter MM 2.9 cm LA Systolic Diameter MM 4.4 cm LA Ao Ratio MM 1.5 AV Cusp Separation MM 1.1 cm DOPPLER AV Peak Velocity 240.0 cm/s AV Peak Gradient 23.0 mmHg AV Mean Gradient 12.0 mmHg AV Velocity Time Integral 52.9 cm LVOT Peak Velocity 78.5 cm/s LVOT Peak Gradient 2.5 mmHg AV Area Cont Eq pk 1.0 cm MR Peak Velocity 362.0 cm/s MR Peak Gradient 52.4 mmHg Mitral E Point Velocity 135.0 cm/s Mitral A Point Velocity 38.0 cm/s Mitral E to A Ratio 3.6 LV E' Lateral Velocity 6.8 cm/s Mitral E to LV E' Lateral Ratio 19.8 TR Peak Velocity 303.0 cm/s TR Peak Gradient 36.7 mmHg PV Peak Velocity 117.0 cm/s PV Peak Gradient 5.5 mmHg FINDINGS LEFT VENTRICLE The left ventricular systolic function is mildly reduced with an estimated ejection fraction in the range of 45- 50%. Mild concentric left ventricular hypertrophy. RIGHT VENTRICLE Normal right ventricular size and systolic function. LEFT ATRIUM The left atrial size is mildly dilated. RIGHT ATRIUM The right atrial size is mildly dilated. ATRIAL SEPTUM Normal atrial septal thickness without atrial level shunting by limited color doppler interrogation. AORTA The aortic root and proximal ascending aorta are normal in size on limited imaging. MITRAL VALVE Ywks-gh-ehjkjkci mitral valve regurgitation. Calcification of the anterior mitral valve leaflet. AORTIC VALVE Trileaflet aortic valve. Mild aortic valve stenosis. TRICUSPID VALVE Structurally normal tricuspid valve. There is mild to moderate tricuspid valve regurgitation. The estimated pulmonary arterial pressure is 47 mmHg. PULMONARY VALVE The pulmonary valve is not well visualized. VESSELS The inferior vena cava is normal in size. PERICARDIUM No pericardial effusion. Arvind Sanford MD (Electronically Signed) Final Date:11 September 2016 17:05
[2016-09-11] MEDS: cefTRIAXone INJ 1,000 MG in SODIUM CHLORIDE 0.9% INJ 100 ML IV SCH (20:33)
[2016-09-12] VITALS (8 sets, daily range): BP systolic 126–176; BP diastolic 68–78; PULSE 85–119; RESP 18–22; TEMP 97.3–99.1; O2SAT 93–98
[2016-09-12] MEDS: DILTIAZEM HCL 30 MG TAB PO SCH ×4 (03:19→20:11)
[2016-09-12] MEDS: METOPROLOL TARTRATE 25 MG TAB PO SCH (06:27)
--- NOTE | 2016-09-12 06:38 | PD.ORT.PN ---
Subjective Subjective Remarks Resting comfortably. Dementia with confusion Objective Vitals Vital Signs Date Time Temp Pulse Resp B/P Pulse Ox O2 Delivery O2 Flow Rate FiO2 09/12/16 04:29 97.3 87 18 145/68 98 09/12/16 00:29 98.3 97 18 147/68 97 09/11/16 20:55 98.9 114 18 136/78 94 09/11/16 19:34 118 09/11/16 19:30 Nasal Cannula 2.00 09/11/16 16:00 97.0 111 18 144/69 96 09/11/16 12:07 18 09/11/16 12:00 99.0 115 18 125/62 92 09/11/16 07:40 98.4 83 18 141/63 97 I/O 09/11/16 09/11/16 09/11/16 09/12/16 09/12/16 09/12/16 07:00 15:00 23:00 07:00 15:00 23:00 Intake Total 769 ml 480 ml 240 ml 310 ml Output Total 250 ml Balance 519 ml 480 ml 240 ml 310 ml Intake Oral 240 ml 480 ml 240 ml IV Total 529 ml 310 ml Output Urine Total 250 ml Bladder Scan Volume Amount 460 ml 358 ml # Voids 0 0 # Bowel Movements 0 0 0 Result Diagram: 09/11/16 0627 09/10/16 0334 Imaging Last 72 hours Impressions Hip X-Ray 09/10/16 0000 Signed Impressions: Service Date/Time: Saturday, September 10, 2016 08:12 - CONCLUSION: Status post ORIF of left proximal femur fracture with hardware in good position. Cornelio Ortega MD Ankle X-Ray 09/10/16 0000 Signed Impressions: Service Date/Time: Saturday, September 10, 2016 18:59 - CONCLUSION: Within normal limits for age. Be Santiago MD Pelvis X-Ray 09/09/16 1620 Signed Impressions: Service Date/Time: Friday, September 09, 2016 16:34 - CONCLUSION: Acute comminuted intertrochanteric fracture of the left proximal femur. Degenerative changes and scoliosis of the lower lumbar spine. Degenerative changes involving the hip joints bilaterally. Cornelio Ortega MD Femur X-Ray 09/09/16 1620 Signed Impressions: Service Date/Time: Friday, September 09, 2016 16:34 - CONCLUSION: Acute comminuted intertrochanteric fracture of the left proximal femur. Cornelio Ortega MD Chest X-Ray 09/09/160 Signed Impressions: Service Date/Time: Friday, September 09, 2016 16:36 - CONCLUSION: 1. Cardiomegaly with mild positive fluid balance. 2. Elevation of the left hemidiaphragm of unknown chronicity. 3. Mild bibasilar airspace disease and small bilateral pleural effusions likely related to positive fluid balance and atelectasis. 4. Mild L1 superior endplate compression deformity of unknown chronicity given lack of recent prior exams. Consider MRI examination for further evaluation if patient has focal pain on palpation of the L2 spinous process. Edmond Montes MD Lower Extremity Ultrasound 09/09/16 0000 Signed Impressions: Service Date/Time: Friday, September 09, 2016 23:29 - CONCLUSION: Normal examination. Carolee Huffman MD Last 24 hours Impressions Pelvis X-Ray 09/09/161619 Signed Impressions: Service Date/Time: Friday, September 09, 2016 16:34 - CONCLUSION: Acute comminuted intertrochanteric fracture of the left proximal femur. Degenerative changes and scoliosis of the lower lumbar spine. Degenerative changes involving the hip joints bilaterally. Cornelio Ortega MD Femur X-Ray 09/09/161619 Signed Impressions: Service Date/Time: Friday, September 09, 2016 16:34 - CONCLUSION: Acute comminuted intertrochanteric fracture of the left proximal femur. Cornelio Ortega MD Chest X-Ray 09/09/160 Signed Impressions: Service Date/Time: Friday, September 09, 2016 16:36 - CONCLUSION: 1. Cardiomegaly with mild positive fluid balance. 2. Elevation of the left hemidiaphragm of unknown chronicity. 3. Mild bibasilar airspace disease and small bilateral pleural effusions likely related to positive fluid balance and atelectasis. 4. Mild L1 superior endplate compression deformity of unknown chronicity given lack of recent prior exams. Consider MRI examination for further evaluation if patient has focal pain on palpation of the L2 spinous process. Edmond Montes MD Objective Remarks Bilateral upper extremities: Full range of motion neurovascularly intact Right lower extremity: Full range of motion and neurovascularly intact. Mild tenderness to palpation over anterior ankle Left lower extremity: Clean dry dressings intact. Mild swelling. Intact sensation distally with good capillary refills Assessment & Plan Assessment and Plan Left intertrochanteric femur fracture POD 2 IM nail Right ankle sprain Physical therapy weightbearing as tolerated bilateral lower extremities Lovenox Incentive spirometry Case management for rehabilitation placement Daily dressing changes Orthopedically cleared for discharge to rehabilitation Follow-up appointment with Dr. Goldstein or [place] in 2 weeks Hemanth Ledesma Jr. Sep 12, 2016 06:38
[2016-09-12] MEDS ORDERED: MAGNESIUM HYDROXIDE SUSP 30 ML CUP PO PRN (07:15)
[2016-09-12] MEDS: amLODIPine BESYLATE 5 MG TAB PO SCH (07:59)
[2016-09-12] MEDS: ENOXAPARIN SODIUM 30 MG/0.3 ML SYRINGE SQ SCH (07:59)
[2016-09-12] MEDS: CALCIUM/VITAMIN D 250 MG/125 U TAB PO SCH ×3 (08:00→17:20)
[2016-09-12] MEDS: CHOLECALCIFEROL (VIT D3) 5000 UNIT CAP PO SCH (08:00)
[2016-09-12] MEDS: DIGOXIN 0.125 MG TAB PO SCH (08:00)
[2016-09-12] MEDS: ASPIRIN EC 81 MG TABEC PO SCH (08:00)
--- NOTE | 2016-09-12 10:58 | PD.CARD.PN ---
Subjective Subjective Remarks no CV complaints Objective Medications Current Medications Medications (Trade) Dose Ordered Sig/Scott Route Start Time Stop Time Status Last Admin Naloxone HCl 0.4 mg 0.4 mg UNSCH PRN IV 09/09/16 20:45 Ceftriaxone Sodium 1000 mg/ Sodium Chloride 100 ml @ 200 mls/hr Q24H IV 09/09/16 21:00 09/11/16 20:33 Lactated Ringer's 1,000 ml @ 30 mls/hr Q24H PRN IV 09/10/16 00:30 09/13/16 00:29 (NS 500 ml Inj) 500 ml @ 30 mls/hr [id number] PRN IV 09/10/16 00:30 09/13/16 00:29 (Morphine Inj) 2 mg Q4HR PRN IV PUSH 09/10/16 01:00 (NS Flush) 2 ml UNSCH PRN IVF 09/10/16 08:15 (NS Flush) 2 ml BID IVF 09/10/16 09:00 (Lovenox Inj) 30 mg Q24H SQ 09/11/16 08:00 09/12/16 07:59 (Zofran Inj) 4 mg Q4H PRN IVP 09/10/16 08:15 (Oscal-D 250-125) 250 mg TID PO 09/10/16 09:00 09/12/16 08:00 ([place] 7.5-325 Mg) 1 tab Q3H PRN PO 09/10/16 08:15 09/11/16 11:07 (Morphine Inj) 3 mg Q3H PRN IV PUSH 09/10/16 08:15 (Vitamin D3) 5,000 units DAILY PO 09/11/16 09:00 09/12/16 08:00 (Norvasc) 5 mg DAILY PO 09/11/16 09:00 09/12/16 07:59 (Lanoxin) 0.125 mg DAILY PO 09/10/16 13:00 09/12/16 08:00 (Lopressor) 25 mg Q8HR PO 09/10/16 14:00 09/12/16 06:27 (Ecotrin Ec) 81 mg DAILY PO 09/11/16 09:00 09/12/16 08:00 (Cardizem) 30 mg Q6H PO 09/10/16 15:00 09/12/16 08:00 (Milk Of Kalie Johnson) 30 ml Q12H PRN PO 09/12/16 07:15 09/12/16 08:02 Vital Signs / I&O Vital Signs Date Time Temp Pulse Resp B/P Pulse Ox O2 Delivery O2 Flow Rate FiO2 09/12/16 08:00 97.9 85 20 137/68 97 09/12/16 07:30 97 09/12/16 04:29 97.3 87 18 145/68 98 09/12/16 00:29 98.3 97 18 147/68 97 09/11/16 20:55 98.9 114 18 136/78 94 09/11/16 19:34 118 09/11/16 19:30 Nasal Cannula 2.00 09/11/16 16:00 97.0 111 18 144/69 96 09/11/16 12:07 18 09/11/16 12:00 99.0 115 18 125/62 92 I/O 09/11/16 09/11/16 09/11/16 09/12/16 09/12/16 09/12/16 07:00 15:00 23:00 07:00 15:00 23:00 Intake Total 769 ml 480 ml 240 ml 370 ml Output Total 250 ml Balance 519 ml 480 ml 240 ml 370 ml Intake Oral 240 ml 480 ml 240 ml 60 ml IV Total 529 ml 310 ml Output Urine Total 250 ml Bladder Scan Volume Amount 460 ml 358 ml # Voids 0 0 0 # Bowel Movements 0 0 0 0 Physical Exam GENERAL: Well-nourished, well-developed patient. SKIN: Warm and dry. HEAD: Normocephalic. EYES: No scleral icterus. No injection or drainage. NECK: Supple, trachea midline. No JVD or lymphadenopathy. CARDIOVASCULAR:Irr Irr without murmurs, gallops, or rubs. RESPIRATORY: Breath sounds equal bilaterally. No accessory muscle use. GASTROINTESTINAL: Abdomen soft, non-tender, nondistended. EXTREMITIES: No cyanosis, or edema. NEUROLOGICAL: Awake, alert, and oriented x 3. Non-focal. Assessment and Plan Problem List: (1) Atrial fibrillation with RVR Assessment and Plan: 1. Increase Lopressor to 50mg PO qid 2. Cont Telemetry monitoring 3. OAC with Pradaxa 150mg PO BID (2) Intertrochanteric fracture of left femur (3) hypertension (4) Mixed hyperlipidemia Problem Qualifiers (1) Intertrochanteric fracture of left femur: Qualified Code: S72.142A - Closed displaced intertrochanteric fracture of left femur, initial encounter Bill Bae MD Sep 12, 2016 10:58
[2016-09-12] MEDS: DABIGATRAN ETEXILATE 150 MG CAP PO SCH ×2 (12:02→20:11)
[2016-09-12] MEDS: METOPROLOL TARTRATE 50 MG TAB PO SCH ×2 (14:00→20:11)
--- NOTE | 2016-09-12 14:55 | HHI.PR ---
Subjective Remarks Abdomen vitals are stable. Patient continues to be unable to void with removal of catheter so intermittent straight cathetering is ongoing. She will need to void better prior to discharge. The other option would be to place a long-term [place] catheter to this point is not yet appropriate. Objective Vital Signs Date Time Temp Pulse Resp B/P Pulse Ox O2 Delivery O2 Flow Rate FiO2 09/12/16 12:00 99.1 89 22 176/78 93 09/12/16 08:00 97.9 85 20 137/68 97 09/12/16 07:30 97 09/12/16 04:29 97.3 87 18 145/68 98 09/12/16 00:29 98.3 97 18 147/68 97 09/11/16 20:55 98.9 114 18 136/78 94 09/11/16 19:34 118 09/11/16 19:30 Nasal Cannula 2.00 09/11/16 16:00 97.0 111 18 144/69 96 I/O 09/11/16 09/11/16 09/11/16 09/12/16 09/12/16 09/12/16 07:00 15:00 23:00 07:00 15:00 23:00 Intake Total 769 ml 480 ml 240 ml 370 ml Output Total 250 ml Balance 519 ml 480 ml 240 ml 370 ml Intake Oral 240 ml 480 ml 240 ml 60 ml IV Total 529 ml 310 ml Output Urine Total 250 ml Bladder Scan Volume Amount 460 ml 358 ml # Voids 0 0 0 # Bowel Movements 0 0 0 0 Result Diagram: 09/11/16 0627 09/10/16 0334 Objective Remarks GENERAL: NAD, A&Ox3 HEAD: Normocephalic. NECK: Supple, trachea midline. No lymphadenopathy. EYES: No scleral icterus. No injection or drainage. CARDIOVASCULAR: Irregularly irregular rhythm without murmurs, gallops, or rubs. Tachycardia. RESPIRATORY: Breath sounds equal bilaterally. No accessory muscle use. GASTROINTESTINAL: Abdomen soft, non-tender, nondistended. MUSCULOSKELETAL: No cyanosis, or edema. Left femur bandage SKIN: Warm and dry. NEURO: No focal neurological deficitis. A/P Problem List: (1) hypertension (2) Atrial fibrillation with RVR ICD Code: I48.91 (3) Intertrochanteric fracture of left femur ICD Code: S72.142A Assessment and Plan Assessment and Plan 89-year-old female status post surgical repair of left femur fracture. Fracture was secondary to fall at home. A. fib RVR has resolved. Continue diltiazem. Urinary obstruction is present and we'll continues to straight catheter as needed. Discharge planning difficult as patient wishes to return to home that she is in a state to discharge to home. Myself and family are trying to convince this patient to discharge to [facility] facility. Urinary obstruction Follow with bladder scans Intermittent straight catheter. Acute comminuted intertrochanteric fracture of the left proximal femur Postop repair Or the following When necessary pain treatments Physical therapy Atrial fibrillation with RVR Rate controlled Continue oral diltiazem Upgraded to IV diltiazem if needed Telemetry Cardiac enzymes slightly elevated but stable and likely secondary to A. fib RVR No chest pain Left lower extremity swelling DVT exam negative May be secondary to fracture versus A. fib RVR UTI Continue Rocephin Follow urine cultures Elevated TSH May be reactive T3 and T4 within normal limits DVT prophylaxis Lovenox Problem Qualifiers (1) Intertrochanteric fracture of left femur: Qualified Code: S72.142A - Closed displaced intertrochanteric fracture of left femur, initial encounter Timi Williamson MD Sep 12, 2016 14:55
[2016-09-12] MEDS: SODIUM CHLORIDE 0.9% FLUSH 5 ML FLUSH IVF SCH (20:06)
[2016-09-12] MEDS: cefTRIAXone INJ 1,000 MG in SODIUM CHLORIDE 0.9% INJ 100 ML IV SCH (20:11)
[2016-09-13 00:32] VITALS: BP 145/67; PULSE 84; RESP 17; TEMP 99; O2SAT 94
[2016-09-13] MEDS: DILTIAZEM HCL 30 MG TAB PO SCH ×3 (02:36→14:37)
[2016-09-13] MEDS: ACETAMINOPHEN/HYDROcodone 325 MG/7.5 MG TAB PO PRN ×2 (02:37→11:49)
[2016-09-13 04:19] VITALS: BP 155/87; PULSE 96; RESP 17; TEMP 97.1; O2SAT 94
[2016-09-13] MEDS: METOPROLOL TARTRATE 50 MG TAB PO SCH ×2 (04:42→14:35)
[2016-09-13 08:00] VITALS: BP 136/79; PULSE 93; RESP 16; TEMP 98.2; O2SAT 94
[2016-09-13] MEDS: ASPIRIN EC 81 MG TABEC PO SCH (09:00)
[2016-09-13] MEDS: SODIUM CHLORIDE 0.9% FLUSH 5 ML FLUSH IVF SCH (09:00)
[2016-09-13] MEDS: amLODIPine BESYLATE 5 MG TAB PO SCH (09:13)
[2016-09-13] MEDS: CALCIUM/VITAMIN D 250 MG/125 U TAB PO SCH ×2 (09:14→11:48)
[2016-09-13] MEDS: CHOLECALCIFEROL (VIT D3) 5000 UNIT CAP PO SCH (09:14)
[2016-09-13] MEDS: DIGOXIN 0.125 MG TAB PO SCH (09:14)
[2016-09-13] MEDS: DABIGATRAN ETEXILATE 150 MG CAP PO SCH (09:14)
[2016-09-13] MEDS: ENOXAPARIN SODIUM 30 MG/0.3 ML SYRINGE SQ SCH (09:14)
[2016-09-13 12:10] VITALS: BP 176/70; PULSE 89; RESP 18; TEMP 97.5; O2SAT 96
--- NOTE | 2016-09-13 13:00 | PD.CARD.PN ---
Subjective Subjective Remarks PT without complaints Objective Medications Current Medications Medications (Trade) Dose Ordered Sig/Scott Route Start Time Stop Time Status Last Admin Naloxone HCl 0.4 mg 0.4 mg UNSCH PRN IV 09/09/16 20:45 (Rocephin Inj/NS Inj) 100 ml @ 200 mls/hr Q24H IV 09/09/16 21:00 09/12/16 20:11 (Morphine Inj) 2 mg Q4HR PRN IV PUSH 09/10/16 01:00 (NS Flush) 2 ml UNSCH PRN IVF 09/10/16 08:15 (NS Flush) 2 ml BID IVF 09/10/16 09:00 09/13/16 09:00 (Lovenox Inj) 30 mg Q24H SQ 09/11/16 08:00 09/13/16 09:14 (Zofran Inj) 4 mg Q4H PRN IVP 09/10/16 08:15 (Oscal-D 250-125) 250 mg TID PO 09/10/16 09:00 09/13/16 11:48 ([place] 7.5-325 Mg) 1 tab Q3H PRN PO 09/10/16 08:15 09/13/16 11:49 (Morphine Inj) 3 mg Q3H PRN IV PUSH 09/10/16 08:15 (Vitamin D3) 5,000 units DAILY PO 09/11/16 09:00 09/13/16 09:14 (Norvasc) 5 mg DAILY PO 09/11/16 09:00 09/13/16 09:13 (Lanoxin) 0.125 mg DAILY PO 09/10/16 13:00 09/13/16 09:14 (Ecotrin Ec) 81 mg DAILY PO 09/11/16 09:00 09/13/16 09:00 (Cardizem) 30 mg Q6H PO 09/10/16 15:00 09/13/16 09:14 (Milk Of Magnesia Liq) 30 ml Q12H PRN PO 09/12/16 07:15 09/12/16 08:02 (Lopressor) 50 mg Q8HR PO 09/12/16 14:00 09/13/16 04:42 (Pradaxa) 150 mg BID PO 09/12/16 11:00 09/13/16 09:14 Vital Signs / I&O Vital Signs Date Time Temp Pulse Resp B/P Pulse Ox O2 Delivery O2 Flow Rate FiO2 09/13/16 12:10 97.5 89 18 176/70 96 09/13/16 08:00 98.2 93 16 136/79 94 09/13/16 04:19 97.1 96 17 155/87 94 09/13/16 00:32 99.0 84 17 145/67 94 09/12/16 20:45 99.1 114 18 126/70 95 09/12/16 20:21 119 09/12/16 16:00 98.4 99 20 154/73 97 I/O 09/12/16 09/12/16 09/12/16 09/13/16 09/13/16 09/13/16 07:00 15:00 23:00 07:00 15:00 23:00 Intake Total 370 ml 240 ml 120 ml Output Total 350 ml 550 ml Balance 370 ml -110 ml -430 ml Intake Oral 60 ml 240 ml 120 ml IV Total 310 ml Output Urine Total 350 ml 550 ml Bladder Scan Volume Amount 358 ml # Voids 0 # Bowel Movements 0 2 0 1 Physical Exam GENERAL: Well developed, well nourished. No acute distress. HEENT: Jugular venous pressure is normal. CHEST: Lungs clear to auscultation bilaterally. Unlabored respiratory effort. CARDIAC: irregular rate and rhythm 3/6 systolic murmur, ABDOMEN: Soft, nontender, no hepatosplenomegaly. Bowel sounds present. EXTREMITIES: No clubbing, cyanosis, or edema. Assessment and Plan Problem List: (1) Atrial fibrillation with RVR Assessment and Plan: 1. reasonable rate control 2. Cont Telemetry monitoring 3. OAC with Pradaxa 150mg PO BID -pt obviously high risk for falls, given her CHADS VASC score it is reasonable to continue 4. reasonable rfor d/c from CV perspective (2) Intertrochanteric fracture of left femur (3) hypertension (4) Mixed hyperlipidemia (5) Atrial fibrillation (6) Noncompliance Assessment and Plan: PT has no followed up as OP with me in quite sometime Problem Qualifiers (1) Intertrochanteric fracture of left femur: Qualified Code: S72.142A - Closed displaced intertrochanteric fracture of left femur, initial encounter Connie Johnson MD Sep 13, 2016 13:00
--- NOTE | 2016-09-13 13:46 | HHI.DS ---
Discharge Summary Admission Date Sep 09, 2016 at 17:55 Discharge Date: Sep 13, 2016 Admitting Diagnosis left intertrochanteric fracture, A. fib with RVR (1) Atrial fibrillation with RVR ICD Code: I48.91 Diagnosis: Principal (2) Intertrochanteric fracture of left femur ICD Code: S72.142A Diagnosis: Principal (3) Atrial fibrillation ICD Code: 427.31 Diagnosis: Secondary Procedures Left hip fracture repair. Brief History - From Admission Written by Jennifer Crouch, acting as scribe for Dr. Guillen on 09/09/16 at 21:21. Difficult history to obtain; patient has some mild confusion - short term memory impairment likely secondary to UTI. The patient states she was sitting at the kitchen table on Thursday; turned around on a stool she was sitting on; the stool toppled over and she fell on the floor on her buttocks with most of the impact occurring on the right side when she hit a kitchen cabinet; the patient states that she did not pass out; did not hit her head. She called her son who called her doctor who alerted EMS. The patient states that the ambulance brought her to [facility], she stayed overnight and she was sent home. Does not drive. The patient reports that she lives alone. Her 2 years ago. The patient's son lives in [place]. Wheezing, chest tightness, and shortness of breath for a couple of days prior to fall - worse at night. Patient reports a history of atrial fibrillation, hypertension, CVA, hypothyroidism. No dizziness, n/v/d, hematuria, dysuria, black or red colored stool. Has been riding a scooter for about [address] 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 email deployment specialist [facility] is pharmacy . CBC/BMP: 09/11/16 0627 09/10/16 0334 Significant Findings Laboratory Tests Test 09/11/16 06:27 Hemoglobin 10.8 GM/DL (11.6-15.3) Hematocrit 33.4 % (35.0-46.0) Imaging Last Impressions Hip X-Ray 09/10/16 0000 Signed Impressions: Service Date/Time: Saturday, September 10, 2016 08:12 - CONCLUSION: Status post ORIF of left proximal femur fracture with hardware in good position. Cornelio Ortega MD Ankle X-Ray 09/10/16 0000 Signed Impressions: Service Date/Time: Saturday, September 10, 2016 18:59 - CONCLUSION: Within normal limits for age. Be Santiago MD Pelvis X-Ray 09/09/16 1620 Signed Impressions: Service Date/Time: Friday, September 09, 2016 16:34 - CONCLUSION: Acute comminuted intertrochanteric fracture of the left proximal femur. Degenerative changes and scoliosis of the lower lumbar spine. Degenerative changes involving the hip joints bilaterally. Cornelio Ortega MD Femur X-Ray 09/09/16 1620 Signed Impressions: Service Date/Time: Friday, September 09, 2016 16:34 - CONCLUSION: Acute comminuted intertrochanteric fracture of the left proximal femur. Cornelio Ortega MD Chest X-Ray 09/09/16 1620 Signed Impressions: Service Date/Time: Friday, September 09, 2016 16:36 - CONCLUSION: 1. Cardiomegaly with mild positive fluid balance. 2. Elevation of the left hemidiaphragm of unknown chronicity. 3. Mild bibasilar airspace disease and small bilateral pleural effusions likely related to positive fluid balance and atelectasis. 4. Mild L1 superior endplate compression deformity of unknown chronicity given lack of recent prior exams. Consider MRI examination for further evaluation if patient has focal pain on palpation of the L2 spinous process. Edmond Montes MD Lower Extremity Ultrasound 09/09/16 0000 Signed Impressions: Service Date/Time: Friday, September 09, 2016 23:29 - CONCLUSION: Normal examination. Carolee Huffman MD Hospital Course Mrs. Navas is an 89-year-old female. She was admitted secondary to a fall and fracture of her left hip. Surgical repair was obtained here. She is tolerating PT but has not been thriving with PT. She may have a prolonged course of physical therapy rehabilitation. Plan for discharge to assisted facility. She was kept one extra day to determine if her urinary obstruction, which has occurred after removal of Acosta, with resolved by today. This has not happened so patient will be discharged with a Acosta catheter. She is medically stable for discharge to assisted facility today. Pt Condition on Discharge: Stable Discharge Disposition: Discharge to SNF Discharge Time: > 30 minutes Discharge Instructions DIET: Follow Instructions for: As Tolerated, No Restrictions Activities you can perform: Regular-No Restrictions Follow up Referrals: Orthopedics - 2 Weeks @ [facility] with Hany Gómez MD PCP Follow-up - 1 Week New Medications: Calcium Carbonate-Vitamin D (Calcium 600+D 200) 600-200 Mg-Unit Tab 1 TAB PO BID Nutritional Supplement #60 Ref 0 TAB Ergocalciferol (Ergocalciferol) 50,000 Unit Cap 75278 UNITS PO Q7D Nutritional Supplement #56 CAP Hydrocodone-Acetaminophen (Hydrocodone-Acetaminophen) 7.5-325 mg Tab 1 TAB PO Q4H PRN PAIN #60 Ref 0 TAB Rivaroxaban (Xarelto) 10 Mg Tab 10 MG PO DAILY Blood Clot Prevention #21 Ref 0 TAB Walker/Adult/Folding (Walker/Adult/Folding) 1 Mis Mis 1 EA .ROUTE DIRECTED #1 Ref 0 EA Timi Williamson MD Sep 13, 2016 13:46
[2016-09-14] MEDS ORDERED: DILTIAZEM-CD 180 MG CAP ER PO SCH (09:00)
== END 2016-09-13 16:15 | DRG 481 ==
LOC: NEPE 16:05 → NEDA 17:55 → NEDH 22:19 → N06B 09-10 00:06 → N06A 09-10 19:18
PROVIDERS: ADMIT Hospitalist; ATTEND Hospitalist
PROC: 0QS704Z Reposition Left Upper Femur with Internal Fixation Device, Open Approach (ICD-10-PCS; principal; 2016-09-10 07:28)
DX: S72.142A Displaced intertrochanteric fracture of left femur, initial encounter for closed fracture (principal); I69.354 Hemiplegia and hemiparesis following cerebral infarction affecting left non-dominant side; F03.90 Unspecified dementia, unspecified severity, without behavioral disturbance, psychotic disturbance, mood disturbance, and anxiety; N39.0 Urinary tract infection, site not specified; I48.2 Chronic atrial fibrillation; W07.XXXA Fall from chair, initial encounter; E78.2 Mixed hyperlipidemia; I10 Essential (primary) hypertension; M81.0 Age-related osteoporosis without current pathological fracture; N13.9 Obstructive and reflux uropathy, unspecified; S93.401A Sprain of unspecified ligament of right ankle, initial encounter; E03.9 Hypothyroidism, unspecified; Y99.8 Other external cause status; Y92.009 Unspecified place in unspecified non-institutional (private) residence as the place of occurrence of the external cause; Z87.891 Personal history of nicotine dependence
CPT/HCPCS: 71010; 72170; 73502; 73552; 73610; 76000; 80048; 80053; 80162; 81001; 82306; 82550; 83880; 84439; 84443; 84480; 84484; 85014; 85018; 85025; 85610; 85730; 86850; 86900; 86901; 87077; 87086; 87186; 93005; 93306; 93970; 96374; 96375; C1713; J0131; J0690; J0696; J1580; J1650; J1940; J2270; J2370; J2405; J3010; J3370; J7040; J7050; J7613

== ENCOUNTER 2016-09-20 21:35 | Inpatient (IN) | payer MEDICARE, BC ==
[~2016-09-20] VITALS: Ht 170.2 cm; Wt 79.0 kg
[~2016-09-20 21:35] MED LIST changes: -AMLO10 PO; +CALCTAB19 PO; -CLIN150 PO; -CYAN1000P IM; +EPINEPHrine HCL (1:10,000) 1 MG/10 ML SYRINGE IV ONE; +ERGO1CAP30 PO; +HYDR-3580 PO; -IRBE1TAB39 PO; -LASI20TA PO; -LIPI40TA PO; -POTA-243 PO; -PRAV40TA PO; -SYNT112T PO; -TOPR200T PO; -TREN400T PO; +WALKER/ADULT/FO1 MIS; +XARE10TA PO
[2016-09-20 21:45] VITALS: O2SAT 99
[2016-09-20] MEDS ORDERED: SODIUM CHLOR 0.9% 1000 ML INJ 1,000 ML IV SCH (21:46)
[2016-09-20 22:00] VITALS: BP 191/109; PULSE 181; TEMP 102.2; O2SAT 71
[2016-09-20] MEDS ORDERED: SUCCINYLCHOLINE CHLORIDE 200 MG/10 ML VIAL IV PUSH ONE (22:00)
[2016-09-20] MEDS ORDERED: ETOMIDATE 20 MG/10 ML VIAL IV PUSH ONE (22:00)
[2016-09-20] MEDS ORDERED: VANCOMYCIN INJ 1,000 MG in SODIUM CHLOR 0.9% 250 ML INJ 250 ML IV ONE (22:00)
[2016-09-20] MEDS ORDERED: ACETAMINOPHEN 650 MG SUPP RECTAL ONE (22:00)
[2016-09-20] MEDS ORDERED: PIPERACIL-TAZO 4.5 GM PREMIX 100 ML IV ONE (22:00)
[2016-09-20] MEDS ORDERED: SODIUM CHLORIDE 0.9% FLUSH 5 ML FLUSH IV FLUSH PRN (22:00)
[2016-09-20 22:20] VITALS: O2SAT 100
[2016-09-20 22:30] VITALS: BP 189/105; PULSE 125; RESP 28; O2SAT 100
--- NOTE | 2016-09-20 22:41 | PD ---
HPI Chief Complaint: respiratory distress, altered mental status, fever Time Seen by Provider: 21:46 Travel History International Travel<30 days: No Contact w/Intl Traveler<30days: No Traveled to known affect area: No History of Present Illness HPI 89-year-old female came to the emergency room brought by EMS from the [facility] for being found unresponsive. Last seen normal was unknown. EMS brought her emergently. Patient was unresponsive and severe respiratory distress. Patient was admitted to the rehabilitation part of the [facility]dc for status post hip surgery. She has history of atrial fibrillation and is on blood thinner. Her rectal temp in ER was 102.9. Patient was in no condition to give any meaningful history. There was no family member present to give any additional history. [facility] Past Medical History Narrative Medical List of her past medical, surgical, social and family history was reviewed from the nursing note. Arthritis: Yes High Cholesterol: Yes Cerebrovascular Accident: Yes (TIA APPROX 10 YEARS AGO LEFT SIDE WEAKNESS MOSTLY HIP AND LEG) Diminished Hearing: No Hypertension: Yes Thyroid Disease: Yes Menopausal: Yes Past Surgical History Abdominal Surgery: Yes (CYST REMOVED TO RIGHT LOWER ABD AREA REMOVED) Appendectomy: Yes Social History Alcohol Use: No Tobacco Use: No Substance Use: No Allergies-Medications (Allergen,Severity, Reaction): Coded Allergies: No Known Allergies (Verified , 09/09/16) Comments No known drug allergies. Reported Meds & Prescriptions Reported Meds & Active Scripts Active Calcium 600+D 200 (Calcium Carbonate-Vitamin D) 600-200 Mg-Unit Tab 1 Tab PO BID Ergocalciferol 50,000 Unit Cap 50,000 Units PO Q7D Xarelto (Rivaroxaban) 10 Mg Tab 10 Mg PO DAILY Hydrocodone-Acetaminophen 7.5-325 mg Tab 1 Tab PO Q4H PRN Walker/Adult/Folding (Device) 1 Mis Mis 1 Ea .ROUTE DIRECTED Narrative Medication List of her home medications reviewed from the nursing note. Review of Systems Except as stated in HPI: all other systems reviewed are Neg Physical Exam Narrative GENERAL: Unresponsive, elderly, frail SKIN: Warm and diaphoretic. Pale HEAD: Atraumatic. Normocephalic. EYES: Pupils equal and round. No scleral icterus. No injection or drainage. ENT: No nasal bleeding or discharge. Mucous membranes pink and moist. NECK: Trachea midline. No JVD. CARDIOVASCULAR: Regular rate and rhythm. No murmur appreciated. RESPIRATORY: Respiratory effort, accessory muscles used, impending respiratory failure, coarse crackles bilaterally GASTROINTESTINAL: Abdomen soft, non-tender, nondistended. Hepatic and splenic margins not palpable. MUSCULOSKELETAL: No obvious deformities. No clubbing. No cyanosis. No edema. NEUROLOGICAL: GCS of 8 PSYCHIATRIC: Unable to assess Data Data Last Documented VS Vital Signs Date Time Temp Pulse Resp B/P Pulse Ox O2 Delivery O2 Flow Rate FiO2 09/20/16 22:30 125 28 189/105 Ventilator 09/20/16 22:30 100 100 09/20/16 22:00 102.2 Orders Electrocardiogram (09/20/16 21:46) Ammonia (09/20/16 21:46) Complete Blood Count With Diff (09/20/16 21:46) Comprehensive Metabolic Panel (09/20/16 21:46) Creatine Kinase (Cpk) (09/20/16 21:46) Prothrombin Time / Inr (Pt) (09/20/16 21:46) Troponin I (09/20/16 21:46) Thyroid Stimulating Hormone (09/20/16 21:46) Urinalysis - C+S If Indicated (09/20/16 21:46) Lactic Acid Sepsis Protocol (09/20/16 21:46) Arterial Blood Gas (Abg) (09/20/16 21:46) Blood Culture (09/20/16 21:46) Chest, Single Ap (09/20/16 21:46) Ct Brain W/O Iv Contrast(Rout) (09/20/16 21:46) Blood Glucose (09/20/16 21:46) Ecg Monitoring (09/20/16 21:46) Iv Access Insert/Monitor (09/20/16 21:46) Oximetry (09/20/16 21:46) Sodium Chloride 0.9% Flush (Ns Flush) (09/20/16 22:00) Sodium Chlor 0.9% 1000 Ml Inj (Ns 1000 M (09/20/16 21:46) Urinary Catheter Insert/Apply (09/20/16 21:46) Denis-Gastric Tube Insert/Mon (09/20/16 21:46) Succinylcholine Inj (Quelicin Inj) (09/20/16 22:00) Etomidate Inj (Amidate Inj) (09/20/16 22:00) Piperacil-Tazo 4.5 Gm Premix (Zosyn 4.5 (09/20/16 22:00) Vancomycin Inj (Vancomycin Inj) (09/20/16 22:00) Acetaminophen Supp (Tylenol Supp) (09/20/16 22:00) Admit Order (Ed Use Only) (09/20/16 22:41) Labs Laboratory Tests Test 09/20/16 09/20/16 09/20/16 22:10 22:15 22:16 White Blood Count 15.4 TH/MM3 Red Blood Count 3.45 MIL/MM3 Hemoglobin 11.4 GM/DL Hematocrit 34.3 % Mean Corpuscular Volume 99.4 FL Mean Corpuscular Hemoglobin 33.0 PG Mean Corpuscular Hemoglobin 33.2 % Concent Red Cell Distribution Width 13.6 % Platelet Count 449 TH/MM3 Mean Platelet Volume 8.7 FL Neutrophils (%) (Auto) 81.6 % Lymphocytes (%) (Auto) 8.8 % Monocytes (%) (Auto) 8.3 % Eosinophils (%) (Auto) 0.7 % Basophils (%) (Auto) 0.6 % Neutrophils # (Auto) 12.6 TH/MM3 Lymphocytes # (Auto) 1.4 TH/MM3 Monocytes # (Auto) 1.3 TH/MM3 Eosinophils # (Auto) 0.1 TH/MM3 Basophils # (Auto) 0.1 TH/MM3 CBC Comment DIFF FINAL Differential Comment Prothrombin Time 12.9 SEC Prothromb Time International 1.2 RATIO Ratio Urine Color YELLOW Urine Turbidity CLEAR Urine pH 7.0 Urine Specific [place] 1.013 Urine Protein TRACE mg/dL Urine Glucose (UA) NEG mg/dL Urine Ketones NEG mg/dL Urine Occult Blood NEG Urine Nitrite NEG Urine Bilirubin NEG Urine Urobilinogen LESS THAN 2.0 MG/DL Urine Leukocyte Esterase TRACE Urine RBC 2 /hpf Urine WBC 7 /hpf Urine Amorphous Sediment RARE Urine Bacteria RARE /hpf Urine Yeast (Budding) FEW Microscopic Urinalysis Comment CATH-CULTURE IND Lactic Acid Level 2.2 mmol/L Blood Gas Puncture Site RT FEMORAL Blood Gas Patient Temperature 98.6 Blood Gas HCO3 22 mmol/L Blood Gas Base Excess -4.3 mmol/L Blood Gas Oxygen Saturation 98 % Arterial Blood pH 7.22 Arterial Blood Partial 56 mmHg Pressure CO2 Arterial Blood Partial 211 mmHG Pressure O2 Arterial Blood Oxygen Content 13.8 Vol % Arterial Blood 1.2 % Carboxyhemoglobin Arterial Blood Methemoglobin 0.4 % Blood Gas Hemoglobin 9.7 G/DL Oxygen Delivery Device VENTILATOR Blood Gas Ventilator Setting Blood Gas Inspired Oxygen 100 % Sodium Level 141 MEQ/L Potassium Level 4.3 MEQ/L Chloride Level 106 MEQ/L Carbon Dioxide Level 25.0 MEQ/L Anion Gap 10 MEQ/L Blood Urea Nitrogen 15 MG/DL Creatinine 1.02 MG/DL Estimat Glomerular Filtration 51 ML/MIN Rate Random Glucose 170 MG/DL Calcium Level 6.8 MG/DL Protein Corrected Calcium 8.4 MG/DL Total Bilirubin 0.6 MG/DL Aspartate Amino Transf 69 U/L (AST/SGOT) Alanine Aminotransferase 53 U/L (ALT/SGPT) Alkaline Phosphatase 215 U/L Ammonia 61 MCMOL/L Total Creatine Kinase 49 U/L Troponin I 0.67 NG/ML Total Protein 4.2 GM/DL Albumin 1.6 GM/DL Thyroid Stimulating Hormone 32.400 uIU/ML [address] [place] [address] Medical Decision Making Medical Screen Exam Complete: Yes Emergency Medical Condition: Yes Medical Record Reviewed: Yes Interpretation(s) Twelve-lead EKG was reviewed by me. Atrial fibrillation, RVR, normal axis, right bundle branch block. Heart rate of 144 bpm. Differential Diagnosis Sepsis, UTI, pneumonia, stroke, intracranial bleed Narrative Course 10:34 PM I decided to intubate the patient upon arrival given her impending respiratory failure. Please refer to my procedure note for intubation. Initially patient tolerated the procedure well. She was started on 1 L IV fluid bolus. However within 10-15 minutes of postintubation I was called in the room by the nurse emergently since patient did not have a pulse. CPR was initiated. Please refer to the nurse's code sheet regarding the medications, the doses and the time of delivery. Patient never had a shockable rhythm. Return of spontaneous circulation was achieved. Patient was started on norepinephrine drip and 3 simultaneously resolve IV fluid with pressure bag was started. I obtained a central line. Please refer to my procedure note regarding the central line. Patient is being taken to the CT scan at the present moment. I looked at the chest x-ray postintubation and line placement and the ET tube, NG tube and central line looks to be in good position. She appears to have a right upper lobe infiltrate. Patient is getting Zosyn and vancomycin as per the sepsis protocol. I just spoke with the process consultant and he has accepted the patient. Patient remains in critical condition. 11:33 PM the blood pressure started to drop again and she was given 2 more liters of fluid wide open. This will be total of 6 L so far. The norepinephrine drip is pretty much maxed out. I have asked the nurse to start Matti-Synephrine drip as well. Troponin is elevated which could be from the cardiac arrest, CPR and septic shock. TSH level was exceptionally high. I've given her dose of hydrocortisone 100 mg. Patient is currently ready to be taken to the ICU. Critical Care Narrative Aggregate critical care time was 70 minutes. Time to perform other separately billable procedures was not included in the critical care time. My time did not include minutes spent treating any other patients simultaneously or on activities that did not directly contribute to the patient's treatment. The services I provided to this patient were to treat and/or prevent clinically significant deterioration that could result in: Respiratory failure, septic shock, pneumonia, ventilator management, cardiac arrest, pressors I provided critical care services requiring my management, as noted below: Chart data review, documentation time, medication orders and management, vital sign assessments/reviewing monitor data, ordering and reviewing lab tests, ordering and interpreting/reviewing x-rays and diagnostic studies, care of the patient and discussion of the patient with the admitting physicians. Procedures Procedure Narrative After the risks and benefits were discussed the following procedure was performed: INTUBATION: The patient was put in optimal position for the procedure. Rapid sequence intubation was initiated by me using 20 milligrams of etomidate IV and 100 milligrams of succinylcholine IV. The patient was intubated with a 7.5 cuffed endotracheal tube. Tube placement was confirmed by visualization of the tube and balloon passing through the cords, capnometry and subsequent chest x-ray. Breath sounds were equal and well aerated bilaterally postintubation. No breath sounds over stomach. Patient tolerated procedure well. CCENTRAL VENOUS LINE: The site was prepped with Betadine and sterilely draped. It was infiltrated with 1% lidocaine plain. The deep vein was cannulated using normal Seldinger technique. A triple lumen central line was placed in the left subclavian site and secured with simple interrupted suture. The site was sterilely dressed. The patient tolerated the procedure well. EKG Prior to Arrival: No Physician Communication Physician Communication Dr. Reid Diagnosis Primary Impression: Respiratory failure Qualified Code: J96.00 - Acute respiratory failure, unspecified whether with hypoxia or hypercapnia Additional Impressions: Septic shock Pneumonia Qualified Code: J18.1 - Pneumonia of right upper lobe due to infectious organism Cardiac arrest Myxedema coma Admitting Information Admitting Physician Requests: Admit Belkis Carrillo MD Sep 20, 2016 22:41
--- NOTE | 2016-09-20 22:42 | RADRPT ---
EXAM DATE/TIME: 09/20/2016 22:30 [facility] COMPARISON: CHEST SINGLE AP, September 09, 2016, 16:36. INDICATIONS : ET tube , NG tube, Central line placement, Post code MEDICAL HISTORY : Unknown SURGICAL HISTORY : Unknown ENCOUNTER: Initial ACUITY: 1 day PAIN SCORE: Non-responsive. LOCATION: Bilateral chest FINDINGS: An endotracheal tube has its tip approximately 4 cm above the trevor. A nasogastric tube has its tip below the diaphragm. A left subclavian central line has its tip in the superior vena cava. The hea rt is enlarged. Bilateral pulmonary infiltrates are noted consistent with pulmonary vascular congest ion versus pneumonia. Degenerative changes and scoliosis of the thoracolumbar spine are noted. CONCLUSION: 1. Bilateral pulmonary infiltrates consistent with mild pulmonary vascular congestion versus pneumon ia. Clinical correlation is recommended. 2. Cardiomegaly. 3. Multiple tubes and lines are in good positions. Cornelio Oretga MD on September 20, 2016 at 22:36 Board Certified Radiologist. This report was verified electronically.
--- NOTE | 2016-09-20 22:46 | RADRPT ---
EXAM DATE/TIME: 09/20/2016 22:39 [facility] COMPARISON: No previous studies available for comparison. INDICATIONS : Altered mental status / respiratory distress. Post code. RADIATION DOSE: 38.38 CTDIvol (mGy) MEDICAL HISTORY : Cerebrovascular disease. Hypertension. SURGICAL HISTORY : Appendectomy. ENCOUNTER: Initial ACUITY: 1 day PAIN SCALE: Non-responsive LOCATION: cranial TECHNIQUE: Multiple contiguous axial images were obtained of the head. Using automated exposure control and adj ustment of the mA and/or kV according to patient size, radiation dose was kept as low as reasonably a chievable to obtain optimal diagnostic quality images. DICOM format image data is available electro nically for review and comparison. FINDINGS: CEREBRUM: Mild cerebral atrophy is noted. Mild periventricular and subcortical white matter small vessel ischem ic changes are noted bilaterally. No evidence of midline shift, mass lesion, hemorrhage or acute infa rction. No extra-axial fluid collections are seen. POSTERIOR FOSSA: The cerebellum and brainstem are intact. The 4th ventricle is midline. The cerebellopontine angle i s unremarkable. EXTRACRANIAL: The visualized portion of the orbits is intact. SKULL: The calvaria is intact. No evidence of skull fracture. CONCLUSION: 1. Mild cerebral atrophy and periventricular/subcortical white matter small vessel ischemic changes b ilaterally. 2. No acute infarct, acute hemorrhage mass effect or extra axial fluid collections. Cornelio Ortega MD on September 20, 2016 at 22:42 Board Certified Radiologist. This report was verified electronically.
--- NOTE | 2016-09-20 22:47 | HHI.HP ---
HPI Service Critical Care Medicine Primary Care Physician Unknown Admission Diagnosis Respiratory Failure, Hypoxemic. Diagnosis: (1) Cardiopulmonary arrest Diagnosis: Principal (2) Respiratory failure Diagnosis: Principal (3) Encephalopathy Diagnosis: Secondary (4) Atrial fibrillation with RVR Diagnosis: Secondary Chief Complaint: Respiratory Arrest Travel History International Travel<30 Days: No Contact w/Intl Traveler <30 Da: No Traveled to Known Affected Are: No History of Present Illness Admitted by EMS from rehab after left hip fracture repair 10 days ago at [facility]. Found unresponsive at rehab facility, full arrest in our ED shortly after intubation. Recent cardiac echo: LVH, EF 45%, Mild-Moderate MR, Moderate , Moderate TR, PA HTN. Review of Systems ROS Unobtainable. Intubated. No family. Past Family Social History Allergies: Coded Allergies: No Known Allergies (Verified , 09/09/16) Past Medical History Past Medical History Arthritis: Yes High Cholesterol: Yes Cerebrovascular Accident: Yes (TIA APPROX 10 YEARS AGO LEFT SIDE WEAKNESS MOSTLY HIP AND LEG) Diminished Hearing: No Hypertension: Yes Thyroid Disease: Yes Menopausal: Yes Past Surgical History Abdominal Surgery: Yes (CYST REMOVED TO RIGHT LOWER ABD AREA REMOVED) Appendectomy: Yes Family History Narrative Family History Noncontributory Social History Alcohol Use: No Tobacco Use: No Substance Use: No Allergies-Medications Allergies-Medications (Allergen,Severity, Reaction): Coded Allergies: No Known Allergies (Verified , 03/14/10) Reported Meds & Prescriptions Reported Meds & Active Scripts Active Physical Exam Physical Exam P 132, BP 73, R 18 vent Head: NL Neck: Supple, orally intubated. Lungs: Diffuse rhonchi, crackles. Heart: Irreg Irreg, no JVD Abdomen: Soft, distended. Extremities: Clammy, cool. Neuro: Unresponsive. Pupils 3 mm, sluggish. Assessment and Plan Assessment and Plan Assessment: 1. Cardiopulmonary Arrest. 2. Encephalopathy. 3. Respiratory Failure. 4. Atrial fibrillation with RVR. Plan: 1. PRVC vent mode. 2. Levophed to keep MAP > 65. 3. Sputum cultures. 4. Broad abx coverage. 5. Rate control with cardizem gtt. 6. Protonix. 7. xarelto for anticoagulation. Overall impression: Critically ill following cardiopulmonary arrest, requiring vasopressor support and mechanical ventilation. Prognosis guarded. Critical Care 43 mins Problem Qualifiers (1) Respiratory failure: Qualified Code: J96.00 - Acute respiratory failure, unspecified whether with hypoxia or hypercapnia Ric Reid MD Sep 20, 2016 22:47
[2016-09-20 22:58] LABS: INTERNATIONAL NORMALIZED RATIO 1.2 RATIO; PROTHROMBIN TIME - PATIENT 12.9 SEC (9.8-11.6)
[2016-09-20 22:59] LABS: AUTOMATED NEUTROPHIL # 12.6 TH/MM3 (1.8-7.7); BASOPHIL # 0.1 TH/MM3 (0-0.2); BASOPHIL % 0.6 % (0.0-2.0); EOSINOPHIL # 0.1 TH/MM3 (0-0.4); EOSINOPHIL % 0.7 % (0.0-4.0); HEMATOCRIT 34.3 % (35.0-46.0); HEMO FLAGS DIFF FINAL; LYMPH % 8.8 % (9.0-44.0); LYMPHOCYTE # 1.4 TH/MM3 (1.0-4.8); MEAN CELL VOLUME 99.4 FL (80.0-100.0); MEAN CORPUSCULAR HGB CONC 33.2 % (32.0-36.0); MONO % 8.3 % (0.0-8.0); NEUT % 81.6 % (16.0-70.0); PLATELET COUNT 449 TH/MM3 (150-450); RED BLOOD COUNT 3.45 MIL/MM3 (4.00-5.30); RED CELL DISTRIBUTION WIDTH 13.6 % (11.6-17.2); WHITE BLOOD COUNT 15.4 TH/MM3 (4.0-11.0)
[2016-09-20 23:00] VITALS: BP 88/55; PULSE 132; RESP 22; TEMP 101; O2SAT 100
[2016-09-20] MEDS ORDERED: CHLORHEXIDINE GLUCONATE 2 % 1 PACK (2 CLOTHS) TOP PRN (23:00)
[2016-09-20] MEDS ORDERED: MISCELLANEOUS NURSING INFORMATION XX SCH (23:00)
[2016-09-20] MEDS ORDERED: MIDAZOLAM HCL 2 MG/2 ML VIAL IV PUSH ONE (23:00)
[2016-09-20] MEDS ORDERED: MORPHINE SULFATE 4 MG/ML INJ IV PRN (23:00)
[2016-09-20] MEDS ORDERED: ACETAMINOPHEN 325 MG TAB PO PRN (23:00)
[2016-09-20] MEDS ORDERED: LACTULOSE SYRUP 20 GM/30 ML CUP PO PRN (23:00)
[2016-09-20] MEDS ORDERED: MAGNESIUM HYDROXIDE SUSP 30 ML CUP PO PRN (23:00)
[2016-09-20] MEDS ORDERED: SENNOSIDES 8.6 MG TAB PO PRN (23:00)
[2016-09-20] MEDS ORDERED: BISACODYL 10 MG SUPP RECTAL PRN (23:00)
[2016-09-20] MEDS ORDERED: ONDANSETRON HCL 4 MG/2 ML VIAL IV PRN (23:00)
[2016-09-20] MEDS ORDERED: Vancomycin Consult Pharmacy 1 EA OTHER SCH (23:00)
[2016-09-20] MEDS ORDERED: PHENYLEPHRINE HCL 10 MG/ML VIAL ONE ×5 (23:08→23:13)
[2016-09-20 23:09] LABS: BACTERIA, URINE RARE /hpf; BLOOD, URINE NEG (NEG); GLUCOSE,URINE NEG (NEG); KETONE, URINE NEG (NEG); NITRITE,URINE NEG (NEG); URINE COLOR YELLOW (YELLW/STRAW)
[2016-09-20 23:10] LABS: COMMENT (UR) CATH-CULTURE IND; CULTURE IF INDICATED CATH CULTURE IND
[2016-09-20 23:15] LABS: CALCIUM-PROTEIN CORRECTED 8.4 MG/DL (8.5-10.1); POTASSIUM 4.3 MEQ/L (3.5-5.1); TOTAL BILIRUBIN ADULT 0.6 MG/DL (0.2-1.0)
[2016-09-20 23:18] LABS: BLOOD GAS BASE EXCESS -4.3 mmol/L (-2-2); BLOOD GAS CARBOXYHEMOGLOBIN 1.2 % (0-4); BLOOD GAS HCO3 22 mmol/L (22-26); BLOOD GAS METHEMOGLOBIN 0.4 % (0-2); BLOOD GAS O2 HGB SATURATION 98 % (90-100); BLOOD GAS OXYGEN CONTENT 13.8 Vol % (12.0-20.0); BLOOD GAS PCO2 56 mmHg (38-42); BLOOD GAS PO2 211 mmHG (61-120); BLOOD GAS TOTAL HGB 9.7 G/DL (12.0-16.0); CRITICAL VALUE YES; OXYGEN DEVICE VENTILATOR; TEMP CORR TO 98.6
[2016-09-20 23:19] LABS: DRAW SITE RT FEMORAL; FIO2 100 %; NUMBER OF ARTERIAL PUNCTURES 1; STAT YES
[2016-09-20] MEDS ORDERED: HYDROCORTISONE SOD SUCCINATE 100 MG VIAL IV PUSH ONE (23:30)
[2016-09-20 23:45] VITALS: O2SAT 97
[2016-09-21] VITALS (12 sets, daily range): BP systolic 94–156; BP diastolic 59–68; PULSE 105–141; RESP 18; TEMP 97.7–98.8; O2SAT 96–100
[2016-09-21] MEDS: MIDAZOLAM 100 MG/ML INJ 100 ML IV SCH (00:23)
[2016-09-21] MEDS: fentaNYL DRIP 250 ML IV SCH (00:23)
[2016-09-21] MEDS: SODIUM CHLOR 0.9% 1000 ML INJ 1,000 ML IV SCH ×2 (00:29→09:44)
[2016-09-21 00:42] LABS: LACTIC ACID GHOST NOT REPORTABLE
[2016-09-21] MEDS: AZITHROMYCIN INJ 500 MG in SODIUM CHLOR 0.9% 250 ML INJ 250 ML IV SCH (00:53)
[2016-09-21] MEDS ORDERED: NOREPINEPHRINE-DEXTROSE DRIP 250 ML IV ONE ×2 (02:03→05:54)
[2016-09-21] MEDS: CHLORHEXIDINE GLUCONATE 2 % 1 PACK (2 CLOTHS) TOP SCH (04:00)
[2016-09-21] MEDS ORDERED: PIPERACIL-TAZO 4.5 GM PREMIX 100 ML IV SCH (04:00)
[2016-09-21 05:10] LABS: AUTOMATED NEUTROPHIL # 25.3 TH/MM3 (1.8-7.7); BASOPHIL # 0.1 TH/MM3 (0-0.2); BASOPHIL % 0.2 % (0.0-2.0); HEMATOCRIT 32.9 % (35.0-46.0); LYMPH % 1.2 % (9.0-44.0); LYMPHOCYTE # 0.3 TH/MM3 (1.0-4.8); MEAN CELL VOLUME 98.9 FL (80.0-100.0); MEAN CORPUSCULAR HEMOGLOBIN 32.5 PG (27.0-34.0); MEAN CORPUSCULAR HGB CONC 32.9 % (32.0-36.0); MONO % 3.9 % (0.0-8.0); NEUT % 94.7 % (16.0-70.0); PLATELET COUNT 405 TH/MM3 (150-450); RED BLOOD COUNT 3.32 MIL/MM3 (4.00-5.30); RED CELL DISTRIBUTION WIDTH 13.6 % (11.6-17.2); WHITE BLOOD COUNT 26.7 TH/MM3 (4.0-11.0)
[2016-09-21 05:18] LABS: HEMO FLAGS AUTO DIFF
[2016-09-21 05:23] LABS: BLOOD GAS BASE EXCESS -1.6 mmol/L (-2-2); BLOOD GAS CARBOXYHEMOGLOBIN 1.2 % (0-4); BLOOD GAS HCO3 22 mmol/L (22-26); BLOOD GAS METHEMOGLOBIN 0.6 % (0-2); BLOOD GAS O2 HGB SATURATION 98 % (90-100); BLOOD GAS OXYGEN CONTENT 15.3 Vol % (12.0-20.0); BLOOD GAS PCO2 35 mmHg (38-42); BLOOD GAS PO2 161 mmHg (61-120); BLOOD GAS TOTAL HGB 10.9 G/DL (12.0-16.0); CRITICAL VALUE NO; OXYGEN DEVICE N; TEMP CORR TO 98.6
[2016-09-21 05:24] LABS: DRAW SITE LT FEMORAL; FIO2 60 %; NUMBER OF ARTERIAL PUNCTURES 1; STAT NO; VENT SETTINGS PRVC/AC
[2016-09-21 05:41] LABS: ALKALINE PHOSPHATASE 358 U/L (45-117); ALT (GPT) 89 U/L (10-53); ANION GAP 10 MEQ/L (5-15); AST (GOT) 129 U/L (15-37); BICARBONATE 26.3 MEQ/L (21.0-32.0); BLOOD UREA NITROGEN 18 MG/DL (7-18); CHLORIDE 102 MEQ/L (98-107); GLOMERULAR FILTRATION RATE 42 ML/MIN (>89); MAGNESIUM 1.7 MG/DL (1.5-2.5); POTASSIUM 4.4 MEQ/L (3.5-5.1); SODIUM (NA) 138 MEQ/L (136-145); TOTAL BILIRUBIN ADULT 1.4 MG/DL (0.2-1.0)
[2016-09-21 05:42] LABS: BANDS 16 % (0-6); EOSINOPHILS 1 % (0-4); NEUTROPHIL # MANUAL DIFF 25.1 TH/MM3 (1.8-7.7); POLYS (SEG NEUTROPHILS) 78 % (16-70); WBC DIFF SAMPLE 100
[2016-09-21 05:43] LABS: PLATELET ESTIMATE SMEAR NORMAL (NORMAL); PLATELET MORPHOLOGY NORMAL (NORMAL); SCAN/DIFF FINAL DIFF MANUAL
[2016-09-21] MEDS ORDERED: SODIUM CHLOR 0.9% 1000 ML INJ 1,000 ML IV ONE (06:45)
[2016-09-21] MEDS ORDERED: RIVAROXABAN 10 MG TAB PO SCH (09:00)
[2016-09-21] MEDS: DOCUSATE SODIUM 50 MG/SENNA 8.6 MG TAB PO SCH ×2 (09:00→20:19)
[2016-09-21] MEDS: PANTOPRAZOLE SODIUM 40 MG VIAL IV SCH (09:29)
[2016-09-21] MEDS: PIPERACIL-TAZO 3.375 GM PREMIX 50 ML IV SCH ×3 (09:29→20:20)
[2016-09-21] MEDS: NOREPINEPHRINE 4 MG/D5W 250 ML IV SCH (09:30)
--- NOTE | 2016-09-21 11:24 | HHI.CCPN ---
Subjective Remarks/Hospital Course Hospital Course: Admitted by EMS from rehab after left hip fracture repair 10 days ago at [facility]. Found unresponsive at rehab facility, full arrest in our ED shortly after intubation. Recent cardiac echo: LVH, EF 45%, Mild-Moderate MR, Moderate , Moderate TR, PA HTN. Subjective: 09/21: neuro exam preserved, follows commands. however, remains in florid shock. art line placed and pulse contour analysis connected and patient remains in severe cardiogenic shock, lactate not clearing as expected. remains on vasopressors. Objective Vital Signs Date Time Temp Pulse Resp B/P Pulse Ox O2 Delivery O2 Flow Rate FiO2 09/21/16 08:22 100 40 09/21/16 04:00 97.7 127 18 156/66 09/21/16 00:00 Mechanical Ventilator Result Diagram: 09/21/16 0445 09/21/16 0445 Other Results Laboratory Tests Test 09/20/16 09/21/16 22:15 04:58 Blood Gas Puncture Site RT FEMORAL LT FEMORAL Blood Gas Patient Temperature 98.6 98.6 Blood Gas HCO3 22 mmol/L 22 mmol/L (22-26) (22-26) Blood Gas Base Excess -4.3 mmol/L -1.6 mmol/L (-2-2) (-2-2) Blood Gas Oxygen Saturation 98 % (90-100) 98 % (90-100) Arterial Blood pH 7.22 7.42 (7.380-7.420) (7.380-7.420) Arterial Blood Partial 56 mmHg (38-42) 35 mmHg (38-42) Pressure CO2 Arterial Blood Partial 211 mmHG 161 mmHg Pressure O2 (61-120) (61-120) Arterial Blood Oxygen Content 13.8 Vol % 15.3 Vol % (12.0-20.0) (12.0-20.0) Arterial Blood 1.2 % (0-4) 1.2 % (0-4) Carboxyhemoglobin Arterial Blood Methemoglobin 0.4 % (0-2) 0.6 % (0-2) Blood Gas Hemoglobin 9.7 G/DL 10.9 G/DL (12.0-16.0) (12.0-16.0) Oxygen Delivery Device VENTILATOR N Blood Gas Ventilator Setting PRVC/AC Blood Gas Inspired Oxygen 100 % 60 % Objective Remarks Head: NL Neck: Supple, orally intubated. Lungs: Diffuse rhonchi, crackles. Heart: Irreg Irreg, no JVD Abdomen: Soft, distended. Extremities: Clammy, cool. Neuro: RASS -2, follows commands. no focal deficits. A/P Assessment and Plan Assessment: 89yF recently post-op s/p hip arthroplasty. She now presents with what appears to be a respiratory arrest from the reports, which has been complicated by cardiac arrest requiring ACLS. She now persists in cardiogenic shock with elevated troponins, elevated BNP. This does not appear to be acute coronary syndrome. Patient's troponins are downtrending and her echo is consistent with global hypokinesis s/p cardiac arrest. She does persist in global cardiogenic shock. We will add inotropic therapy. I will talk with her son: given her age and comorbidities, she may not survive this hospital stay. Her neurologic function is intact, so we will continue aggressive care for now. Plan by systems: Neurologic: Metabolic encephalopathy Ammonia elevated Continue lactulose Versed, fentanyl for goal RASS -2 Respiratory: Acute hypoxic and hypercarbic respiratory failure Vent bundle Head of bed at 30 Wean FiO2 for goal SPO2 greater than 90% Trend ABGs No SBT today given cardiogenic shock Cardiovascular: Cardiogenic shock Status post cardiac arrest 09/20 Elevated troponins Type II NSTEMI/Demand Ischemia Acute CHF exacerbation, systolic, likely secondary to acute myocardial dysfunction postcardiac arrest Continue pulse contour analysis Add milrinone Monitor urine outputs Trend lactates Follow-up 2-D echo Renal: Acute kidney injury Likely secondary to cardiogenic shock Acosta -- Strict I/Os FEN/GI: Acute protein calorie malnutritionsevere Hypokalemia Intravascular volume overload Nothing by mouth while in shock Lasix 100 mg IV 1 ICU electrolyte protocol daily BMP Heme/ID: Anemia secondary to acute blood loss from recent surgery Possible aspiration pneumonia Possible healthcare associated pneumonia Trend CBC Continue Zosyn, azithromycin, vancomycin Follow-up cultures Endocrine: Hyperglycemia of critical illness -- SSI, medium scale, every 6 Prophylaxis: GI Prophylaxis Protonix DVT Prophylaxis -- SCDs Continue home Xarelto Lines: Left subclavian triple-lumen catheter 09/20 Right radial arterial line 09/21 [place] Dispo: Remain in the ICU. Very critically ill this time. This patient remains critically ill with one or more organ systems which are or may become a threat to life. I have spent in excess of 62 minutes discontinuously in the care and management of this patient. This time is exclusive of procedures, and includes, but is not limited to, evaluation of the patient, review of the medical record, discussions with family, consultants, nursing staff, or respiratory therapy, and documentation in the medical record. Dimas Leigh MD Sep 21, 2016 11:24
--- NOTE | 2016-09-21 11:54 | EKG ---
Date Performed: 09/20/2016 Time Performed: 22:04:56 PTAGE: 89 years EKG: ATRIAL FIBRILLATION WITH RAPID VENTRICULAR RESPONSE INCOMPLETE RIGHT BUNDLE BRANCH BLOCK NO NSPECIFIC ST & T-WAVE ABNORMALITY Since previous tracing, no significant change noted ABNORMAL RHYTHM ECG PREVIOUS TRACING : 09/09/2016 22.14 DOCTOR: Gabo Gordon Interpretating Date/Time 09/21/2016 11:53:06
[2016-09-21 11:59] LABS: BLOOD GAS BASE EXCESS -1.6 mmol/L (-2-2); BLOOD GAS CARBOXYHEMOGLOBIN 1.3 % (0-4); BLOOD GAS HCO3 22 mmol/L (22-26); BLOOD GAS METHEMOGLOBIN 0.2 % (0-2); BLOOD GAS O2 HGB SATURATION 98 % (90-100); BLOOD GAS OXYGEN CONTENT 15.2 Vol % (12.0-20.0); BLOOD GAS PCO2 29 mmHg (38-42); BLOOD GAS PO2 152 mmHg (61-120); BLOOD GAS TOTAL HGB 10.8 G/DL (12.0-16.0); CRITICAL VALUE NO; OXYGEN DEVICE VENTILATOR; TEMP CORR TO 98.6; VENT SETTINGS 450/18/+5/0.90
[2016-09-21 12:00] LABS: DRAW SITE RT BRACHIAL; FIO2 40 %; NUMBER OF ARTERIAL PUNCTURES 1; STAT YES
[2016-09-21 13:02] LABS: INTERNATIONAL NORMALIZED RATIO 1.1 RATIO; PROTHROMBIN TIME - PATIENT 12.1 SEC (9.8-11.6)
[2016-09-21] MEDS ORDERED: DOBUTamine INJ 1,000 MG in DEXTROSE 5% IN WATER INJ 170 ML IV SCH ×2 (13:30)
--- NOTE | 2016-09-21 15:33 | ECHRPT ---
Indication: Heart failure, unspecified CONCLUSIONS Normal left ventricular size. The left ventricular systolic function is severely reduced with an estimated ejection fraction in th e range of 20-25%. Severe global hypokinesis, apex appears dyskinetic. Moderate thickening of the mitral valve leaflets. Calcification of both mitral valve leaflets. Mild mitral valve regurgitation. There is estimated mild pulmonary hypertension present (range 40-50 mmHg). There is no pericardial effusion. A moderate left sided pleural effusion is noted. Ascites present Aortic valve appears at least mildly stenotic but gradient low due to poor cardiac output. BP: / HR: Rhythm: MEASUREMENTS (Male / Female) Normal Values Technical Quality:Good 2D ECHO LV Diastolic Diameter PLAX 3.9 cm 4.2 - 5.9 / 3.9 - 5.3 cm LV Systolic Diameter PLAX 3.6 cm IVS Diastolic Thickness 1.5 cm 0.6 - 1.0 / 0.6 - 0.9 cm LVPW Diastolic Thickness 0.8 cm 0.6 - 1.0 / 0.6 - 0.9 cm LV Relative Wall Thickness 0.6 RV Internal Dim ED PLAX 2.3 cm LVOT Diameter 2.0 cm M-MODE Aortic Root Diameter MM 3.5 cm LA Systolic Diameter MM 3.4 cm LA Ao Ratio MM 1.0 AV Cusp Separation MM 1.0 cm DOPPLER AV Peak Velocity 157.0 cm/s AV Peak Gradient 9.9 mmHg AV Mean Gradient 5.0 mmHg AV Velocity Time Integral 21.6 cm LVOT Peak Velocity 69.9 cm/s LVOT Peak Gradient 2.0 mmHg LVOT Velocity Time Integral 8.7 cm AV Area Cont Eq vti 1.3 cm AV Area Cont Eq pk 1.4 cm TR Peak Velocity 299.0 cm/s TR Peak Gradient 35.8 mmHg FINDINGS LEFT VENTRICLE Nonobstructive prominent basal hypertrophy is present consistent with sigmoid septum. Dyskinetic api [place] cap wall motion. Normal left ventricular size. The left ventricular systolic function is severely reduced with an estimated ejection fraction in th e range of 20-25%. RIGHT VENTRICLE The right ventricular size is normal. LEFT ATRIUM The left atrial size is normal. RIGHT ATRIUM The right atrial size is normal. ATRIAL SEPTUM Normal atrial septal thickness without atrial level shunting by limited color doppler interrogation. AORTA The aortic root and proximal ascending aorta are normal in size on limited imaging. MITRAL VALVE Moderate thickening of the mitral valve leaflets. Calcification of both mitral valve leaflets. Mild mitral valve regurgitation. AORTIC VALVE Trileaflet aortic valve. No aortic valve stenosis or regurgitation. Aortic valve sclerosis is present. Moderate thickening of the aortic valve leaflets. TRICUSPID VALVE Structurally normal tricuspid valve. There is mild tricuspid valve regurgitation. There is estimated mild pulmonary hypertension present (range 40-50 mmHg). PULMONARY VALVE The pulmonary valve is not well visualized. VESSELS The inferior vena cava is normal in size. PERICARDIUM There is no pericardial effusion. A moderate left sided pleural effusion is noted. Saul Ramachandran MD (Electronically Signed) Final Date:21 September 2016 15:32
[2016-09-21] MEDS ORDERED: Vancomycin Consult Pharmacy 1 EA OTHER SCH (15:45)
[2016-09-21] MEDS ORDERED: FUROSEMIDE 100 MG/10 ML VIAL IV PUSH ONE (15:45)
[2016-09-21] MEDS ORDERED: DEXTROSE 50% IN WATER 50 ML VIAL(D50) IV PUSH PRN (16:00)
--- NOTE | 2016-09-21 16:14 | PD.PROCEDR ---
Procedure Note Procedure Procedure: Arterial Line Placement Right radial arterial line Diagnosis: Cardiogenic shock Indications: And need for beat to beat hemodynamic monitoring Consent: Consent is deemed emergent or medically necessary Description of the Procedure: The wrist was prepped and draped sterilely. 1% lidocaine was used for local anesthesia. The pulse was located and a needle was advanced into the artery. A 20 gauge, 12 cm catheter was advanced into the artery using a modified Seldinger technique. The catheter was sutured to the skin and a sterile dressing was applied. The catheter was connected to a pressure transducer and an arterial waveform was noted. Ultrasound guidance: Ultrasound guidance was used for this procedure. Under direct ultrasound guidance, the right radial artery was identified. The vascular anatomy of the right wrist was normal. Under direct real-time ultrasound guidance, a needle, guidewire, and catheter were all advanced into the artery. There were no immediate complications noted. There was minimal EBL. I personally performed the procedure. Dimas Leigh MD Sep 21, 2016 16:14
[2016-09-21] MEDS: INSULIN NovoLIN REGULAR SUPPLEMENTAL SCALE SQ SCH ×2 (18:00→23:05)
[2016-09-21] MEDS: MILRINONE INJ 20 MG in SODIUM CHLORIDE 0.9% INJ 80 ML IV SCH (18:30)
[2016-09-21] MEDS: VANCOMYCIN INJ 1,500 MG in SODIUM CHLORID 0.9% 500 ML INJ 500 ML IV SCH (18:57)
[2016-09-21] MEDS: RESP: ALBUTEROL 2.5 MG/IPRATROPIUM 0.5 MG NEB (PRN) INH (20:25)
--- NOTE | 2016-09-21 23:00 | RADRPT ---
EXAM DATE/TIME: 09/21/2016 21:19 [facility] COMPARISON: US LEG BILATERAL VENOUS DOPPLER, September 09, 2016, 23:29. INDICATIONS : Bilateral leg swelling. MEDICAL HISTORY : Cerebrovascular disease. Hypertension. SURGICAL HISTORY : Appendectomy. ENCOUNTER: Initial ACUITY: 1 day PAIN SCORE: Non-responsive LOCATION: Bilateral leg. TECHNIQUE: Venous ultrasound of the left and right leg was performed from the inguinal ligament to the proximal calf. Real-time, color Doppler and spectral tracing, compression and augmentation techniques were us ed. FINDINGS: RIGHT LEG: There is normal compressibility of the deep venous system from the inguinal region to the proximal ca lf. Deep venous thrombosis is noted within the right posterior tibial veins. No echogenic clot is se en in the lumen of the common femoral, femoral, popliteal, and peroneal veins. There is a normal res ponse of the venous system to proximal and distal augmentation and respiration. LEFT LEG: There is normal compressibility of the deep venous system from the inguinal region to the proximal ca lf. No echogenic clot is seen in the lumen of the common femoral, femoral, popliteal, and posterior tibial veins. There is a normal response of the venous system to proximal and distal augmentation an d respiration. CONCLUSION: Deep venous thrombosis within the right posterior tibial veins. Cornelio Ortega MD on September 21, 2016 at 22:56 Board Certified Radiologist. This report was verified electronically.
--- NOTE | 2016-09-21 23:12 | RADRPT ---
EXAM DATE/TIME: 09/21/2016 21:57 [facility] COMPARISON: No previous studies available for comparison. INDICATIONS : Bilateral arm swelling. MEDICAL HISTORY : Cerebrovascular disease. Hypertension. SURGICAL HISTORY : Appendectomy. ENCOUNTER: Initial ACUITY: 1 day PAIN SCORE: Non-responsive LOCATION: Bilateral arm. FINDINGS: RIGHT UPPER EXTREMITY: There is spontaneous flow documented in the brachial, basilic, cephalic, axillary, and subclavian vei ns. The vessels are compressible and augmentation response is documented. No filling defects are se en. The flow is phasic with respiration. Direction of flow in the jugular vein is caudal. The vein s of the forearm are not able to be imaged. LEFT UPPER EXTREMITY: Direction of flow in the jugular vein is caudal. The subclavian and cephalic veins cannot be imaged due to overlying bandage. There is flow seen in the axillary and brachial veins. Forearm vein flow is intact. CONCLUSION: Intact flow seen in the deep venous system of the deep venous system which can be imaged. Cannot rick ge left subclavian or cephalic veins. Matthew Cheng MD on September 21, 2016 at 23:03 Board Certified Radiologist. This report was verified electronically.
[2016-09-22] VITALS (11 sets, daily range): BP systolic 100–135; BP diastolic 48–61; PULSE 94–162; RESP 15–18; TEMP 98.1–100.6; O2SAT 96–100
[2016-09-22] MEDS: AZITHROMYCIN INJ 500 MG in SODIUM CHLOR 0.9% 250 ML INJ 250 ML IV SCH ×2 (00:12→23:41)
[2016-09-22 02:36] LABS: HEMATOCRIT 32.1 % (35.0-46.0); MEAN CELL VOLUME 97.1 FL (80.0-100.0); MEAN CORPUSCULAR HEMOGLOBIN 31.9 PG (27.0-34.0); MEAN CORPUSCULAR HGB CONC 32.9 % (32.0-36.0); PLATELET COUNT 364 TH/MM3 (150-450); RED CELL DISTRIBUTION WIDTH 13.8 % (11.6-17.2); REVIEW FLAG FINAL
[2016-09-22] MEDS: MILRINONE INJ 20 MG in SODIUM CHLORIDE 0.9% INJ 80 ML IV SCH ×2 (02:38→14:56)
[2016-09-22 02:55] LABS: BICARBONATE 24.6 MEQ/L (21.0-32.0); POTASSIUM 3.7 MEQ/L (3.5-5.1)
[2016-09-22] MEDS: CHLORHEXIDINE GLUCONATE 2 % 1 PACK (2 CLOTHS) TOP SCH (03:18)
[2016-09-22] MEDS: PIPERACIL-TAZO 3.375 GM PREMIX 50 ML IV SCH ×4 (03:20→21:36)
[2016-09-22] MEDS: fentaNYL DRIP 250 ML IV SCH ×2 (03:20→09:43)
[2016-09-22] MEDS: INSULIN NovoLIN REGULAR SUPPLEMENTAL SCALE SQ SCH ×4 (04:45→23:33)
--- NOTE | 2016-09-22 05:01 | RADRPT ---
EXAM DATE/TIME: 09/22/2016 03:46 [facility] COMPARISON: CHEST SINGLE AP, September 20, 2016, 22:30. INDICATIONS : Respiratory failure. MEDICAL HISTORY : None. SURGICAL HISTORY : None. ENCOUNTER: Subsequent ACUITY: 2 days PAIN SCORE: Non-responsive. LOCATION: Bilateral chest FINDINGS: Endotracheal tube tip well above the trevor. Left subclavian catheter tip projects over the mid supe rior vena cava. Gastric tube traverses the [id number]. There is increasing consolidation in the left lower lung with complete loss of delineation of the left hemidiaphragm. Some hazy opacity at th e right lower chest with meniscal interface in the costophrenic angle suggests a tiny right pleural e ffusion. Previously noted infiltrates in the upper lung have cleared. Stable deformity left shoulde r. CONCLUSION: Interval development of left lower lobe consolidation and tiny right pleural effusion. Interval reso lution of the upper lobe infiltrates. Matthew Cheng MD on September 22, 2016 at 4:56 Board Certified Radiologist. This report was verified electronically.
[2016-09-22] MEDS ORDERED: DIGOXIN 0.5 MG/2 ML VIAL IV PUSH ONE ×2 (05:30→08:00)
[2016-09-22] MEDS: NOREPINEPHRINE 4 MG/D5W 250 ML IV SCH ×3 (06:43→17:33)
[2016-09-22] MEDS ORDERED: FUROSEMIDE 100 MG/10 ML VIAL IV PUSH ONE (07:15)
[2016-09-22] MEDS ORDERED: AMIODARONE INJ 150 MG in DEXTROSE 5% IN WATER 100ML INJ 97 ML IV ONE ×2 (08:00)
[2016-09-22 08:07] LABS: APTT (PATIENT) 30.8 SEC (24.3-30.1); INTERNATIONAL NORMALIZED RATIO 1.1 RATIO
[2016-09-22] MEDS: MIDAZOLAM 100 MG/ML INJ 100 ML IV SCH (09:43)
[2016-09-22] MEDS: DOCUSATE SODIUM 50 MG/SENNA 8.6 MG TAB PO SCH ×2 (09:44→21:33)
[2016-09-22] MEDS: PANTOPRAZOLE SODIUM 40 MG VIAL IV SCH (09:44)
[2016-09-22] MEDS: AMIODARONE INJ 450 MG in DEXTROSE 5% IN WATE(EXCEL) INJ 241 ML IV SCH ×4 (09:47→14:56)
[2016-09-22] MEDS ORDERED: HEPARIN SODIUM - IV 10,000 UNITS/10 ML VIAL ONE (09:49)
--- NOTE | 2016-09-22 10:02 | PD.CONS ---
Consult Service Palliative Care . Consult Requested By Dr. Leigh . Primary Care Physician Unknown Reason for Consultation a. To assist with evaluation and management of symptoms including: pain; dyspnea; encephalopathy b. To assist medical decision maker(s) with: better understanding of current medical conditions; weighing benefits/burdens of medical treatment options; making medical treatment decisions. . HPI History of Present Illness Ms. Navas is an 89 y/o female with a known medical history of stroke; arthritis; hyperlipidemia; hypertension; hypothyroidism; atrial fibrillation on Xarelto; and recent left intertrochanteric hip fracture. who was sent from her retirement ([facility]) to the ED via EMS on 09/20/16 after being found unresponsive and in severe respiratory distress. The patient was hospitalized here 09/09/16 after suffering her hip fracture, underwent surgery, and was discharged to the nursing facility on09/13/16. She was also diagnosed with a Klebsiella UTI at time of presentation for her hip fracture. On arrival in the ED the patient's respiratory distress prevented her from providing any meaningful history. No family was present. She appeared to be in imminent respiratory failure and the patient was intubated and placed on mechanical ventilation in the ED. Initial vital signs in the ED were as follows: Temperature 102.2; pulse 181; blood pressure 191/109; pulse oximetry 99 % on the ventilator with FiO2 of 100 Physical examination by the emergency whey department operator over the following: Patient was unresponsive, elderly, and frail appearing. She was warm, diaphoretic, and pale. Cardiovascular exam was unremarkable other than the blood pressure. Patient was using accessory muscles with coarse crackles bilaterally. Abdomen was benign. GCS score was 8. Initial diagnostic testing revealed the following: * CBC showed WBC 15.4; hemoglobin 11.4; platelet count 449 * Coagulation profile showed PT 12.9; INR 1.2 * Urinalysis was remarkable for trace proteinuria; trace leukocyte esterase; 2 RBC; 7 WBCs; rare bacteria * Lactic acid level was 2.2 * ABGs on the ventilator at 100% FiO2 showed pH 7.22; PCO2 56; PCO2 211; bicarbonate 22; base excess -4.3 * Serum chemistry showed sodium 141; potassium 4.3; chloride 106; CO2 25; anion gap 10; BUN 15; creatinine 1.02; GFR 51; calcium 6.8 * Liver function tests showed total bilirubin 0.6; AST 69; ALT 53; alkaline phosphatase 215; ammonia 61; total protein 4.2; albumin 1.6 * Cardiac serology showed total CK 49; troponin 0.67; * TSH was 32.4 * CXR showed right upper lobe infiltrate The patient tolerated her intubation. She was started on 1 L of IV fluid bolus. However 10-15 minutes post intubation, the patient was found pulseless and CPR was initiated. There was return of spontaneous circulation with ACLS protocol and a norepinephrine drip was started. A central line was placed. Approximately one hour later the blood pressure began to fall again and the patient was given 2 more liters of fluid for a total of 6 L. A Matti-Synephrine drip was started as well. A 100 mg dose of hydrocortisone was given in response to the elevated TSH. Critical care was consulted and the patient was admitted to the surgical intensive care unit remaining on pressor support and mechanical ventilation. 2-D echocardiogram revealed an ejection fraction of 20-25% with severe global hypokinesis. There was moderate thickening of the mitral valve leaflets and calcification of both mitral valve leaflets. There was mild pulmonary hypertension. A moderate left-sided pleural effusion was noted. Ascites was noted. Aortic valve appeared mildly stenotic. On 09/21/16 the patient was able to follow commands but remained in severe shock. An arterial line was placed. Lactate was not clearing as expected. Patient remained dependent on vasopressors. Blood cultures and sputum cultures from 09/20/16 showed no growth. Urine culture from 09/20/16 is growing a yet to be identified yeast. CT of the head showed mild cerebral atrophy consistent with age but no acute changes. Doppler ultrasound of the extremity showed a deep venous thrombosis within the right posterior tibial veins. Chest x-ray this morning shows interval development of a left lower lobe consolidation and tiny right pleural effusion. There has been interval resolution of the upper lobe infiltrates. At time of my visit, patient is minimally responsive on a fentanyl drip (90mcg/ hr) and a midazolam drip (2 mg /hr). Nursing pain level scores have been 0-1 on this regimen. Dyspnea is controlled with mechanical ventilation. The primary nurse reports the patient was following some commands earlier today. . . Function/Cognitive Trajectory The patient had been living alone prior to her fall and femur fracture. However, she had been declining cognitively and physically since her in 12/2014 and the decline had accelerated over the 2 months leading up to her fall. Son reports she had been having hallucinations and paranoia for about 6 months. She used to have her neighbor take her to the store for groceries but did not feel well enough to go for about 8 weeks. She used to walk the 300 feet to her mailbox with a cane, but started using her 's electric scooter about 10 weeks ago. She used to prepare her own meals, but there was evidence she was eating mostly things like applesauce and oatmeal for some time. Son believes her personal hygiene had deteriorated. She had been reporting some wheezing, chest tightness , and SOB for a couple of days prior to her fall. There symptoms were worse at night. She had been sleeping in a reclining chair for about 7-8 years. Son reports that she was not doing well in rehab after her hip fracture. She found the physical therapy very painful and was resistant to participation. He did not believe she would ever be able to live independently again. . Review of Systems ROS Limitations: Clinical Condition, Intubated (Patient is intubated and sedated in the ICU. Son reports patient was always very private and personal. Limited ROS taken from son and medical record. ) Constitutional: COMPLAINS OF: Fatigue, Fever, Weight loss, Change in appetite, Pain, Generalized weakness Eyes: COMPLAINS OF: Vision loss (Wears glasses. Had reinal problem in left eye assoicated with her stroke. ) Ears, nose, mouth, throat: COMPLAINS OF: Running Nose (Complained of constant coryza), DENIES: Epistaxis Respiratory: COMPLAINS OF: Shortness of breath, DENIES: Apneas, Hemoptysis Cardiovascular: COMPLAINS OF: Dyspnea on Exertion, Orthopnea, Claudication, DENIES: Chest pain, Palpitations Gastrointestinal: DENIES: Abdominal pain, Diarrhea, Nausea, Vomiting Psychiatric: COMPLAINS OF: Confusion, Hallucinations, Agitation Past Family Social History Coded Allergies: No Known Allergies (Verified , 09/09/16) Past Medical History * stroke -- suffered a stroke approximately 10 years ago and has residual left- sided weakness mostly in the left hip and leg * arthritis; * hyperlipidemia; * hypertension; * hypothyroidism; * atrial fibrillation on Xarelto; * ecent left intertrochanteric hip fracture Past Surgical History * Cyst removed from right lower abdominal area * Appendectomy * cataract surgery * Repair of left intertrochanteric hip fracture August 2016 . Reported Medications Pre-hospitla medications at the retirement included the following: Calcium 600+D 200 (Calcium Carbonate-Vitamin D) 600-200 Mg-Unit Tab 1 Tab PO BID Ergocalciferol 50,000 Unit Cap 50,000 Units PO Q7D Xarelto (Rivaroxaban) 10 Mg Tab 10 Mg PO DAILY Hydrocodone-Acetaminophen 7.5-325 mg Tab 1 Tab PO Q4H PRN Current Medications Medications (Trade) Dose Ordered Sig/Scott Route Start Time Stop Time Status Last Admin (NS Flush) 2 ml UNSCH PRN IV FLUSH 09/20/16 22:00 Rivaroxaban 10 mg 10 mg DAILY PO 09/21/16 09:00 Hold 09/21/16 14:04 (Versed Inj) 100 ml @ 0 mls/hr CONTINUOUS IV 09/20/16 23:00 09/21/16 00:23 (Tylenol) 650 mg Q6H PRN PO 09/20/16 23:00 (Morphine Inj) 2 mg Q2H PRN IV 09/20/16 23:00 (Protonix Inj) 40 mg DAILY IV 09/21/16 09:00 09/21/16 09:29 (Zofran Inj) 4 mg Q6H PRN IV 09/20/16 23:00 Miscellaneous Information 1 Q361D XX 09/20/16 23:00 (Chlorhexidine 2% Cloth) 3 pack Taper DAILY@04 TOP 09/21/16 04:00 09/17/17 03:59 09/22/16 03:18 (Chlorhexidine 2% Cloth) 3 pack UNSCH PRN TOP 09/20/16 23:00 (Joanna-Colace) 1 tab BID PO 09/21/16 09:00 (Milk Of Magnesia Liq) 30 ml Q12H PRN PO 09/20/16 23:00 (Senokot) 17.2 mg Q12H PRN PO 09/20/16 23:00 Bisacodyl 10 mg 10 mg DAILY PRN RECTAL 09/20/16 23:00 Fentanyl Citrate 250 ml @ 0 mls/hr TITRATE IV 09/20/16 23:00 09/22/16 03:20 Azithromycin 500 mg/Sodium Chloride 250 ml @ 250 mls/hr Q24H IV 09/21/16 00:00 09/22/16 00:12 Pharmacy Profile Note 0 ml @ 0 mls/hr UNSCH OTHER 09/20/16 23:00 Norepinephrine Bitartrate 250 ml @ 0 mls/hr TITRATE IV 09/21/16 08:30 09/22/16 06:43 Piperacillin Sod/ Tazobactam Sod 50 ml @ 100 mls/hr Q6H IV 09/21/16 10:00 09/22/16 03:20 (Vancomycin Inj/ NS 500 ml Inj) 515 ml @ 250 mls/hr Q24H IV 09/21/16 18:00 09/21/16 18:57 Miscellaneous Information SPECIFIC LAB TO BE DRAWN:VANCOMYCIN TROUGH DATE TO... ONCE ONCE .XX 09/23/16 17:45 09/23/16 17:46 (Primacor Inj/NS Inj) 100 ml @ 9 mls/hr Q11H7M IV 09/21/16 17:00 09/22/16 02:38 (D50w (Vial) Inj) 25 ml UNSCH PRN IV PUSH 09/21/16 16:00 (NovoLIN R SUPPLEMENTAL SCALE) 1 Q6HR SQ 09/21/16 18:00 09/21/16 18:00 (Lanoxin Inj) 0.125 mg DAILY IV PUSH 09/23/16 09:00 (Heparin Inj) 5,000 units UNSCH PRN IV 09/22/16 13:15 Heparin Sodium (Porcine) 2500 units 2,500 units UNSCH PRN IV 09/22/16 13:15 Heparin Sodium/ Dextrose 250 ml @ 0 mls/hr TITRATE IV 09/22/16 07:15 (Cordarone Inj/ D5W ([place]) Inj) 250 ml @ 0 mls/hr CONTINUOUS IV 09/22/16 08:00 Family History Patient's father and mother of heart diseas at age 62 and 87 respectively. Pt's siblings of cancer and heart disease. . Substance Use Tobacco: Quit many years ago Alcohol: Very rare use on social occasions. Prescription med abuse: No known abuse Illicits: No known history of abuse. . Psychosocial History Patient was born and raised in [facility]. She had a high school education. 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 She was and twice. Her second on 01/15/15 She had one child -- her son Sergey Stnoe -- from her first marriage. . Spiritual/Cultural Factors Per son, patient's father was full Jennifer. There were also a number of Restoration ministers in the family. Sikhism and spiritual beliefs did not appear to be an important part of the patient's life -- either spirituality or Buddhist. . Living Will: Never completed Health Care Surrogate: Never completed Durable Power of Postal Sorting Officer: Never completed Date completed: Advance directives were never completed. [facility] notes state, " Resident does not wish to create any advance directives at this time. Resident in process of handling some legal matters with atorney before creating any new advance directives." . Health Care Surrogate(s): No written designation of health care surrogate. . Documented care wishes: No written documentation of health care goals/preferences. . Today's verbally stated goals: Patient unable to verbally state her health care goals/preferences at this time. Unclear if she will regain capacity to do so. . Family/friends goals: Per son, at the rehab center, patient had indicated she would want to be resuscitated. she has also told the QUALITY ASSURANCE SUPERVISOR FINAL -- Ting -- that she wanted her son to be her health care surrogate. Son has requested that we continue aggressive care short of chest compressions and shock. He wants her kept comfortable but is hoping she will recover enough cognitive capacity to at least help with legal decisions to settle her estate should she pass. . Ethical and Legal Issues Patient is incapacitated and it is unclear if she will regain capacity to make her own health care decisions. . Physical Exam Vital Signs Date Time Temp Pulse Resp B/P Pulse Ox O2 Delivery O2 Flow Rate FiO2 09/22/16 08:10 97 40 09/22/16 04:00 40 09/22/16 04:00 97 40 09/22/16 04:00 99.8 162 18 107/58 100 09/22/16 01:24 97 40 09/22/16 00:00 98.3 157 18 121/51 100 09/22/16 00:00 40 09/21/16 22:35 98 40 09/21/16 20:25 98 40 09/21/16 20:00 40 09/21/16 20:00 97.9 125 18 136/59 100 09/21/16 19:00 100 Mechanical Ventilator 40 09/21/16 16:38 100 40 09/21/16 16:00 40 09/21/16 16:00 97.7 105 18 94/59 100 09/21/16 13:00 100 40 09/21/16 12:00 50 . 09/21/16 09/22/16 19:00 07:00 Intake Total 855 ml 1721 ml Output Total 200 ml 1175 ml Balance 655 ml 546 ml Intake Oral 855 ml IV Total 1721 ml Output Urine Total 200 ml 1075 ml Gastric Drainage Total 100 ml . Exam CONSTITUTIONAL/GENERAL: Pale, frail appearing female in SICU bed -- sedated, mechanically ventilated. No obvious distress. TUBES/LINES/DRAINS: orotracheal tube; orogastric tube; left subclavian central line; gomez catheter; right radial arterial line; SCD on left lower extremity SKIN: No jaundice, rashes. Nurses report left coccyx skin tear and left heel pressure ulcer. Ecchymoses on upper extremities. No wounds seen anteriorly. Skin temperature appropriate. Not diaphoretic. HEAD: Atraumatic. Normocephalic. EYES: Pupils equal and round and reactive. Cannot evaluate EOMs. No scleral icterus. No injection or drainage. Fundi not examined. ENT: Unable to evaluate hearing. . Nose without bleeding or purulent drainage. Throat without visible erythema, exudates, masses, or lesions. NECK: Trachea midline. Supple, nontender. No palpable thyroid enlargement or nodularity. CARDIOVASCULAR: Tachycardic, irregular. No audible murmurs, gallops, or rubs. No JVD. Peripheral pulses symmetric. RESPIRATORY/CHEST: Symmetric, unlabored respirations. Faint ronchi bilaterally. No audible wheezes. GASTROINTESTINAL: Abdomen soft, non-tender, nondistended. No hepato-splenomegaly , or palpable masses. No guarding. Bowel sounds present. GENITOURINARY: Without palpable bladder distension. Gomez catheter in place. MUSCULOSKELETAL: Extremities without clubbing, cyanosis, or edema. No joint tenderness or effusion noted. No calf tenderness. No mottling or clubbing. LYMPHATICS: No palpable cervical or supraclavicular adenopathy. NEUROLOGICAL: Sedated. Follows few simple commands. PSYCHIATRIC: Unable to evaluate due to level of responsiveness. . Diagnostic Tests Laboratory Laboratory Tests Test 09/20/16 09/20/16 09/20/16 09/20/16 22:10 22:15 22:16 23:59 White Blood Count 15.4 TH/MM3 (4.0-11.0) Red Blood Count 3.45 MIL/MM3 (4.00-5.30) Hemoglobin 11.4 GM/DL (11.6-15.3) Hematocrit 34.3 % (35.0-46.0) Mean Corpuscular Volume 99.4 FL (80.0-100.0) Mean Corpuscular Hemoglobin 33.0 PG (27.0-34.0) Mean Corpuscular Hemoglobin 33.2 % Concent (32.0-36.0) Red Cell Distribution Width 13.6 % (11.6-17.2) Platelet Count 449 TH/MM3 (150-450) Mean Platelet Volume 8.7 FL (7.0-11.0) Neutrophils (%) (Auto) 81.6 % (16.0-70.0) Lymphocytes (%) (Auto) 8.8 % (9.0-44.0) Monocytes (%) (Auto) 8.3 % (0.0-8.0) Eosinophils (%) (Auto) 0.7 % (0.0-4.0) Basophils (%) (Auto) 0.6 % (0.0-2.0) Neutrophils # (Auto) 12.6 TH/MM3 (1.8-7.7) Lymphocytes # (Auto) 1.4 TH/MM3 (1.0-4.8) Monocytes # (Auto) 1.3 TH/MM3 (0-0.9) Eosinophils # (Auto) 0.1 TH/MM3 (0-0.4) Basophils # (Auto) 0.1 TH/MM3 (0-0.2) CBC Comment DIFF FINAL Differential Comment Prothrombin Time 12.9 SEC (9.8-11.6) Prothromb Time International 1.2 RATIO Ratio Urine Color YELLOW (YELLW/STRAW) Urine Turbidity CLEAR (CLEAR) Urine pH 7.0 (5.0-8.5) Urine Specific Casey 1.013 (1.002-1.035) Urine Protein TRACE mg/dL (NEG-TRACE) Urine Glucose (UA) NEG mg/dL (NEG) Urine Ketones NEG mg/dL (NEG) Urine Occult Blood NEG (NEG) Urine Nitrite NEG (NEG) Urine Bilirubin NEG (NEG) Urine Urobilinogen LESS THAN 2.0 MG/DL (LESS THAN 2.0) Urine Leukocyte Esterase TRACE (NEG) Urine RBC 2 /hpf (0-3) Urine WBC 7 /hpf (0-5) Urine Amorphous Sediment RARE Urine Bacteria RARE /hpf (NONE) Urine Yeast (Budding) FEW (NONE) Microscopic Urinalysis Comment CATH-CULTURE IND Lactic Acid Level 2.2 mmol/L (0.4-2.0) Blood Gas Puncture Site RT FEMORAL Blood Gas Patient Temperature 98.6 Blood Gas HCO3 22 mmol/L (22-26) Blood Gas Base Excess -4.3 mmol/L (-2-2) Blood Gas Oxygen Saturation 98 % (90-100) Arterial Blood pH 7.22 (7.380-7.420) Arterial Blood Partial 56 mmHg (38-42) Pressure CO2 Arterial Blood Partial 211 mmHG Pressure O2 (61-120) Arterial Blood Oxygen Content 13.8 Vol % (12.0-20.0) Arterial Blood 1.2 % (0-4) Carboxyhemoglobin Arterial Blood Methemoglobin 0.4 % (0-2) Blood Gas Hemoglobin 9.7 G/DL (12.0-16.0) Oxygen Delivery Device VENTILATOR Blood Gas Ventilator Setting Blood Gas Inspired Oxygen 100 % Sodium Level 141 MEQ/L (136-145) Potassium Level 4.3 MEQ/L (3.5-5.1) Chloride Level 106 MEQ/L (98-107) Carbon Dioxide Level 25.0 MEQ/L (21.0-32.0) Anion Gap 10 MEQ/L (5-15) Blood Urea Nitrogen 15 MG/DL (7-18) Creatinine 1.02 MG/DL (0.50-1.00) Estimat Glomerular Filtration 51 ML/MIN (>89) Rate Random Glucose 170 MG/DL (74-106) Calcium Level 6.8 MG/DL (8.5-10.1) Protein Corrected Calcium 8.4 MG/DL (8.5-10.1) Total Bilirubin 0.6 MG/DL (0.2-1.0) Aspartate Amino Transf 69 U/L (15-37) (AST/SGOT) Alanine Aminotransferase 53 U/L (10-53) (ALT/SGPT) Alkaline Phosphatase 215 U/L (45-117) Ammonia 61 MCMOL/L (11-32) Total Creatine Kinase 49 U/L (26-192) Troponin I 0.67 NG/ML (0.02-0.05) Total Protein 4.2 GM/DL (6.4-8.2) Albumin 1.6 GM/DL (3.4-5.0) Thyroid Stimulating Hormone 32.400 uIU/ML 3rd Gen (0.358-3.740) Nasal Screen MRSA (PCR) MRSA NOT DETECTED (NOT DETECT) Test 09/21/16 09/21/16 09/21/16 09/21/16 04:45 04:58 11:44 12:20 White Blood Count 26.7 TH/MM3 (4.0-11.0) Red Blood Count 3.32 MIL/MM3 (4.00-5.30) Hemoglobin 10.8 GM/DL (11.6-15.3) Hematocrit 32.9 % (35.0-46.0) Mean Corpuscular Volume 98.9 FL (80.0-100.0) Mean Corpuscular Hemoglobin 32.5 PG (27.0-34.0) Mean Corpuscular Hemoglobin 32.9 % Concent (32.0-36.0) Red Cell Distribution Width 13.6 % (11.6-17.2) Platelet Count 405 TH/MM3 (150-450) Mean Platelet Volume 8.0 FL (7.0-11.0) Neutrophils (%) (Auto) 94.7 % (16.0-70.0) Lymphocytes (%) (Auto) 1.2 % (9.0-44.0) Monocytes (%) (Auto) 3.9 % (0.0-8.0) Eosinophils (%) (Auto) 0.0 % (0.0-4.0) Basophils (%) (Auto) 0.2 % (0.0-2.0) Neutrophils # (Auto) 25.3 TH/MM3 (1.8-7.7) Lymphocytes # (Auto) 0.3 TH/MM3 (1.0-4.8) Monocytes # (Auto) 1.0 TH/MM3 (0-0.9) Eosinophils # (Auto) 0.0 TH/MM3 (0-0.4) Basophils # (Auto) 0.1 TH/MM3 (0-0.2) CBC Comment AUTO DIFF Differential Total Cells 100 Counted Neutrophils % (Manual) 78 % (16-70) Band Neutrophils % 16 % (0-6) Lymphocytes % 2 % (9-44) Monocytes % 3 % (0-8) Eosinophils % 1 % (0-4) Neutrophils # (Manual) 25.1 TH/MM3 (1.8-7.7) Differential Comment FINAL DIFF MANUAL Platelet Estimate NORMAL (NORMAL) Platelet Morphology Comment NORMAL (NORMAL) Red Cell Morphology Comment NORMAL (NORMAL) Sodium Level 138 MEQ/L (136-145) Potassium Level 4.4 MEQ/L (3.5-5.1) Chloride Level 102 MEQ/L (98-107) Carbon Dioxide Level 26.3 MEQ/L (21.0-32.0) Anion Gap 10 MEQ/L (5-15) Blood Urea Nitrogen 18 MG/DL (7-18) Creatinine 1.20 MG/DL (0.50-1.00) Estimat Glomerular Filtration 42 ML/MIN (>89) Rate Random Glucose 204 MG/DL (74-106) Lactic Acid Level 2.5 mmol/L 2.1 mmol/L (0.4-2.0) (0.4-2.0) Calcium Level 7.7 MG/DL (8.5-10.1) Magnesium Level 1.7 MG/DL (1.5-2.5) Total Bilirubin 1.4 MG/DL (0.2-1.0) Aspartate Amino Transf 129 U/L (15-37) (AST/SGOT) Alanine Aminotransferase 89 U/L (10-53) (ALT/SGPT) Alkaline Phosphatase 358 U/L (45-117) Troponin I 5.35 NG/ML 4.93 NG/ML (0.02-0.05) (0.02-0.05) B-Type Natriuretic Peptide 587 PG/ML (0-100) Total Protein 5.1 GM/DL (6.4-8.2) Albumin 2.0 GM/DL (3.4-5.0) Blood Gas Puncture Site LT FEMORAL RT BRACHIAL Blood Gas Patient Temperature 98.6 98.6 Blood Gas HCO3 22 mmol/L 22 mmol/L (22-26) (22-26) Blood Gas Base Excess -1.6 mmol/L -1.6 mmol/L (-2-2) (-2-2) Blood Gas Oxygen Saturation 98 % (90-100) 98 % (90-100) Arterial Blood pH 7.42 7.48 (7.380-7.420) (7.380-7.420) Arterial Blood Partial 35 mmHg (38-42) 29 mmHg (38-42) Pressure CO2 Arterial Blood Partial 161 mmHg 152 mmHg Pressure O2 (61-120) (61-120) Arterial Blood Oxygen Content 15.3 Vol % 15.2 Vol % (12.0-20.0) (12.0-20.0) Arterial Blood 1.2 % (0-4) 1.3 % (0-4) Carboxyhemoglobin Arterial Blood Methemoglobin 0.6 % (0-2) 0.2 % (0-2) Blood Gas Hemoglobin 10.9 G/DL 10.8 G/DL (12.0-16.0) (12.0-16.0) Oxygen Delivery Device N VENTILATOR Blood Gas Ventilator Setting PRVC/AC 450/18/+5/0.90 Blood Gas Inspired Oxygen 60 % 40 % Prothrombin Time 12.1 SEC (9.8-11.6) Prothromb Time International 1.1 RATIO Ratio Activated Partial 32.0 SEC Thromboplast Time (24.3-30.1) Fibrinogen 506 mg/dL (227-377) Test 09/21/16 09/22/16 09/22/16 21:01 02:14 07:45 Troponin I 3.84 NG/ML 3.48 NG/ML (0.02-0.05) (0.02-0.05) White Blood Count 19.0 TH/MM3 (4.0-11.0) Red Blood Count 3.30 MIL/MM3 (4.00-5.30) Hemoglobin 10.5 GM/DL (11.6-15.3) Hematocrit 32.1 % (35.0-46.0) Mean Corpuscular Volume 97.1 FL (80.0-100.0) Mean Corpuscular Hemoglobin 31.9 PG (27.0-34.0) Mean Corpuscular Hemoglobin 32.9 % Concent (32.0-36.0) Red Cell Distribution Width 13.8 % (11.6-17.2) Platelet Count 364 TH/MM3 (150-450) Mean Platelet Volume 8.1 FL (7.0-11.0) Sodium Level 139 MEQ/L (136-145) Potassium Level 3.7 MEQ/L (3.5-5.1) Chloride Level 104 MEQ/L (98-107) Carbon Dioxide Level 24.6 MEQ/L (21.0-32.0) Anion Gap 10 MEQ/L (5-15) Blood Urea Nitrogen 22 MG/DL (7-18) Creatinine 1.40 MG/DL (0.50-1.00) Estimat Glomerular Filtration 35 ML/MIN (>89) Rate Random Glucose 127 MG/DL (74-106) Calcium Level 8.0 MG/DL (8.5-10.1) Prothrombin Time 12.0 SEC (9.8-11.6) Prothromb Time International 1.1 RATIO Ratio Activated Partial 30.8 SEC Thromboplast Time (24.3-30.1) . Result Diagram: 09/22/1621309/22/16213 Microbiology Microbiology Date/Time Procedure Status Source Growth 09/20/16 22:00 Aerobic Blood Culture - Preliminary Resulted Blood Peripheral NO GROWTH IN 1 DAY 09/20/16 22:00 Anaerobic Blood Culture - Preliminary Resulted Blood Peripheral NO GROWTH IN 1 DAY 09/20/16 22:10 Aerobic Blood Culture - Preliminary Resulted Blood Peripheral NO GROWTH IN 1 DAY 09/20/16 22:10 Anaerobic Blood Culture - Preliminary Resulted Blood Peripheral NO GROWTH IN 1 DAY 09/20/16 22:10 Urine Culture - Preliminary Resulted Urine Catheterized Urine RESULTS PENDING 09/20/16 23:59 Gram Stain - Final Resulted Sputum Endotracheal 09/20/16 23:59 Sputum Culture Resulted Sputum Endotracheal Pending 09/21/16 16:50 Gram Stain - Final Resulted Sputum Endotracheal 09/21/16 16:50 Sputum Culture Resulted Sputum Endotracheal Pending Imaging * 2-D echocardiogram revealed an ejection fraction of 20-25% with severe global hypokinesis. There was moderate thickening of the mitral valve leaflets and calcification of both mitral valve leaflets. There was mild pulmonary hypertension. A moderate left-sided pleural effusion was noted. Ascites was noted. Aortic valve appeared mildly stenotic Last Impressions Chest X-Ray 09/22/16 0500 Signed Impressions: Service Date/Time: Thursday, September 22, 2016 03:46 - CONCLUSION: Interval development of left lower lobe consolidation and tiny right pleural effusion. Interval resolution of the upper lobe infiltrates. Matthew Cheng MD Upper Extremity Ultrasound 09/21/16 0000 Signed Impressions: Service Date/Time: Wednesday, September 21, 2016 21:57 - CONCLUSION: Intact flow seen in the deep venous system of the deep venous system which can be imaged. Cannot image left subclavian or cephalic veins. Matthew Cheng MD Lower Extremity Ultrasound 09/21/16 0000 Signed Impressions: Service Date/Time: Wednesday, September 21, 2016 21:19 - CONCLUSION: Deep venous thrombosis within the right posterior tibial veins. Cornelio Ortega MD Head CT 09/20/16 2146 Signed Impressions: Service Date/Time: Tuesday, September 20, 2016 22:39 - CONCLUSION: 1. Mild cerebral atrophy and periventricular/subcortical white matter small vessel ischemic changes bilaterally. 2. No acute infarct, acute hemorrhage mass effect or extra axial fluid collections. Cornelio Ortega MD Procedures * Intubation/mechanical ventilation * Left subclavian central line * Right radial arterial line . Patient/Family Conference Present at Family Conference: Son -- Sergey Stone . Family Conference Time (mins): 35 Family Conference Location: Telephone Issues Discussed: * Palliative care role, purpose, approach * Additional medical, psychosocial, and spiritual history * Patients general health, functional status, and cognitive changes in the months leading up to the current hospitalization * Family understanding of the current medical problems * Family understanding of prognosis * Patients goals of care as best understood from conversations and/or values * Current medical treatment options and benefits/burdens of those options * Likely scenarios comparing ongoing aggressive care with a transition to comfort measures only * Questions answered to the best of my ability * Palliative care contact information provided . Assessment and Plan Disease Oriented Problem List: (1) Cardiopulmonary arrest (2) Respiratory failure (3) Pneumonia (4) Atrial fibrillation with RVR (5) Shock Comment: Probably a combination of septic shock (fever, elevated WBC, + urine cx) and cardiogenic shock. . (6) Intertrochanteric fracture of left femur (7) Acquired hypothyroidism (8) Hypoalbuminemia (9) UTI (urinary tract infection) Comment: Yeast -- to be identified . (10) Deep venous thrombosis Comment: right posterior tibial veins . (11) Acute kidney injury Symptom Scale: (1) Pain 0-10 Scale: Unable to quantify Comment: Patient was experiencing pain at hip surgery site requiring intermittent use of hydrocodone 7.5 mg prior to her admission. Other possible sources of pain include intubations; prolonged bedbound status; catheters; SCD; etc. Pain currently appears to be controlled with a fentanyl drip. . (2) Dyspnea 0-10 Scale: Unable to quantify Comment: Dyspnea currently controlled with mechanical ventilation. Fentanyl and midazolam drip are also preventing air hunger. . (3) Encephalopathy 0-10 Scale: Unable to quantify (Patient is able to follow simple commands.) Comment: Patient able to follow some simple commands in the ICU. Son reports patient has had altered mental status of varying severity for 6 months with hallucinations and paranoia. Specific etiology is unclear. . Pertinent Non-Medical Issues Psychosocial: . One son. Had been living alone but declining, prior to hip fracture. Spiritual: Not an important part of her life. Legal: No advance directive, no financial will. Son is meeting elder icer air conditioning on 09/22/16. Son is health care proxy. Ethical issues impacting care: Patient is incapacitated. Uncertain if she will be able to regain capacity. . Important Contacts * Sergey Stone (son; proxy) [phone]; [phone]; [phone] * Verónica ([id number]) [phone] . Prognosis Patient suffered a cardiac arrest in the ED, has a low ejection fraction, is ventilator dependent, is not clearing lactate, has a DVT, is high dose pressor dependent, is malnourished, and has refractory tachycardia. Control Center Operator believes chances of survival are small at this time. Should patient survive the ICU, her chances of shelter survival remain poor. She would be appropriate for hospice services at such time that patient/family opts to focus on comfort care. . Code Status: No Code (Dr. Leigh had spoken with son and decided on NO CODE status. ) Plan == Code Status; NO CODE == Decision maker: Though able to follow simple commands, patient is critically ill and unable to weigh the benefits and burdens of treatment options. She is therefore incapacitated to make her own health care decisions. As there is no written designation of health care surrogate, and she is a , her son -- Sergey Stone -- becomes the legal health care proxy. == Goals: Though son understands that prognosis is very poor, he desires aggressive care short of chest compressions/shock. He is hoping she will awaken enough to facilitate legal issues enabling him to settle her estate should she pass. Son has a meeting set with an elder icer air conditioning for 09/22/16 at 16 :00. == Pain: Pain sources noted above. Currently on fentanyl drip with titration orders which appears to be working. No further recommendations at this time. == Dyspnea: Currently managed with mechanical ventilation. Fentanyl drip and midazolam drip are titratable and will also help to prevent any air hunger. No further recommendations at this time. == Encephalopathy: Patient is able to follow simple commands. Will be given "sedation vacations" if tolerated to monitor neuro improvement. Patient is not capable of making her own health care decisions at this time and it is uncertain if she will re-gain that capacity. Given her history of hallucinations and paranoia at home prior to her fall, she is likely to have delirium should she begin to recover in the ICU. == Palliative care will continue to follow to assist with symptom management and to further clarify goals of medical treatment as the clinical course evolves. . Time Spent Total Floor Time (mins): 80 (Total floor time included chart review, patient exam, collaboration with primary nurse, phone conversation with Dr. Leigh, and telephone conversation with the patient's health care proxy. ) Face to Face Time (mins): 10 >50% Counseling/Coord of Care: No Thank you for the opportunity to participate in the care of Ms. Navsa. . Attestation To help prompt me to consider important information that might be impacting today's encounter and assessment, information from prior notes written by myself or my colleagues may have been "brought forward" into today's note. My signature on this note, however, is an attestation that I personally performed the exam, history, and/or decision-making noted today, and, unless otherwise indicated, the interactions with patient, family, and staff as well as the review of records all occurred today. I also attest that the listed assessment and stated plan reflect my best clinical judgment today based on the combination of historical information, prior notes, and today's exam/ interactions. When time spent is documented, it refers only to time spent today by the signer, or if indicated, combined time spent today by collaborating physician/nurse practitioner. . Florian Cassidy MD Sep 22, 2016 10:02
[2016-09-22] MEDS: HEPARIN-D5W INJ 250 ML IV SCH (10:18)
[2016-09-22] MEDS: RESP: ALBUTEROL 2.5 MG/IPRATROPIUM 0.5 MG NEB (PRN) INH ×3 (11:48→19:42)
[2016-09-22] MEDS ORDERED: HEPARIN SODIUM - IV 10,000 UNITS/10 ML VIAL IV PRN ×2 (13:15)
[2016-09-22 16:17] LABS: APTT (PATIENT) 81.1 SEC (24.3-30.1)
[2016-09-22] MEDS: VANCOMYCIN INJ 1,500 MG in SODIUM CHLORID 0.9% 500 ML INJ 500 ML IV SCH (17:33)
--- NOTE | 2016-09-22 18:37 | HHI.CCPN ---
Subjective Remarks/Hospital Course Hospital Course: Admitted by EMS from rehab after left hip fracture repair 10 days ago at [facility]. Found unresponsive at rehab facility, full arrest in our ED shortly after intubation. Recent cardiac echo: LVH, EF 45%, Mild-Moderate MR, Moderate , Moderate TR, PA HTN. Subjective: 09/21: neuro exam preserved, follows commands. however, remains in florid shock. art line placed and pulse contour analysis connected and patient remains in severe cardiogenic shock, lactate not clearing as expected. remains on vasopressors. 09/22: despite aggressive inotropic therapy, patient continues to decline. lasix 100mg iv x 1 given yesterday with minimal output. volume overload persists. lasix 200mg iv x 1 ordered this morning, again with only 300cc output. CI continues to be < 2. neuro intact, but cardiogenic shock worsening. will pursue aggressive forced diuresis. palliative consult placed. unlikely to survive. Objective Vital Signs Date Time Temp Pulse Resp B/P Pulse Ox O2 Delivery O2 Flow Rate FiO2 09/22/16 16:00 40 09/22/16 15:49 96 09/22/16 07:00 Mechanical Ventilator 09/22/16 04:00 99.8 162 18 107/58 Intake and Output 09/21/16 09/21/16 09/22/16 08:00 16:00 00:00 Intake Total 855 ml 1043 ml Output Total 200 ml 865 ml Balance 655 ml 178 ml Result Diagram: 09/22/1621309/22/16213 Objective Remarks Head: NL Neck: Supple, orally intubated. Lungs: Diffuse rhonchi, crackles. Heart: Irreg Irreg, +JVD Abdomen: Soft, distended. Extremities: Clammy, cool. Neuro: RASS -2, follows commands. no focal deficits. A/P Assessment and Plan Assessment: 89yF recently post-op s/p hip arthroplasty. She now presents with what appears to be a respiratory arrest from the reports, which has been complicated by cardiac arrest requiring ACLS. She now persists in worsening cardiogenic shock with elevated troponins, elevated BNP. This does not appear to be acute coronary syndrome. Patient's troponins are downtrending and her echo is consistent with global hypokinesis s/p cardiac arrest. She does persist in global cardiogenic shock. Continue inotropic therapy. increase force ddiuresis. palliative consult. unlikely to survive. continue aggressive goals per son. DNR. off pathway and remains critically ill with decompensating shock. Plan by systems: Neurologic: Metabolic encephalopathy Ammonia elevated Continue lactulose Versed, fentanyl for goal RASS -2 Respiratory: Acute hypoxic and hypercarbic respiratory failure Vent bundle Head of bed at 30 Wean FiO2 for goal SPO2 greater than 90% Trend ABGs No SBT today given cardiogenic shock Cardiovascular: Cardiogenic shock- worsening. Status post cardiac arrest 09/20 Elevated troponins Type II NSTEMI/Demand Ischemia Acute CHF exacerbation, systolic, likely secondary to acute myocardial dysfunction postcardiac arrest Atrial fibrillation with rapid ventricular response Continue pulse contour analysis continue milrinone 0.375 mcg/kg/min Monitor urine outputs Trend lactates 2d echo: severe global hypokinesis, ef 20%. -- start amio bolus and drip Renal: Acute kidney injury- worsening Likely secondary to cardiogenic shock Acosta -- Strict I/Os FEN/GI: Acute protein calorie malnutritionsevere Hypokalemia Intravascular volume overload Nothing by mouth while in shock Lasix 200 mg IV 1 without benefit. -- bumex drip. -- diuril x 1. ICU electrolyte protocol serial BMP Heme/ID: Anemia secondary to acute blood loss from recent surgery Possible aspiration pneumonia Possible healthcare associated pneumonia DVT Trend CBC Continue Zosyn, azithromycin, vancomycin Follow-up cultures --patient with DVT while on Xarelto. unclear if she has failed xarelto therapy or not (unclear if she has been compliant with outpatient therapy). will stop xarelto and start heparin drip. Endocrine: Hyperglycemia of critical illness -- SSI, medium scale, every 6 Prophylaxis: GI Prophylaxis Protonix DVT Prophylaxis -- SCDs hold xarelto. start heparin drip Lines: Left subclavian triple-lumen catheter 09/20 Right radial arterial line 09/21 [place] Dispo: Remain in the ICU. Very critically ill this time. This patient remains critically ill with one or more organ systems which are or may become a threat to life. I have spent in excess of 44 minutes discontinuously in the care and management of this patient. This time is exclusive of procedures, and includes, but is not limited to, evaluation of the patient, review of the medical record, discussions with family, consultants, nursing staff, or respiratory therapy, and documentation in the medical record. Dimas Leigh MD Sep 22, 2016 18:37
[2016-09-22] MEDS ORDERED: BUMETANIDE INJ 1 MG/4 ML VIAL IV PUSH ONE (18:45)
[2016-09-22] MEDS ORDERED: CHLOROTHIAZIDE SOD 500 MG VIAL IV ONE (19:30)
[2016-09-22] MEDS: BUMETANIDE INJ 100 ML IV SCH (20:16)
[2016-09-22 21:16] LABS: BICARBONATE 25.1 MEQ/L (21.0-32.0); MAGNESIUM 1.7 MG/DL (1.5-2.5); POTASSIUM 3.6 MEQ/L (3.5-5.1)
[2016-09-23] VITALS (12 sets, daily range): BP systolic 103–155; BP diastolic 55–71; PULSE 106–129; RESP 16–18; TEMP 97.8–99.1; O2SAT 97–100
[2016-09-23 00:07] LABS: APTT (PATIENT) 90.7 SEC (24.3-30.1)
[2016-09-23 00:15] LABS: BICARBONATE 25.7 MEQ/L (21.0-32.0); MAGNESIUM 1.6 MG/DL (1.5-2.5); POTASSIUM 3.3 MEQ/L (3.5-5.1)
[2016-09-23] MEDS ORDERED: POTASSIUM CHLOR 40 MEQ PREMIX 100 ML IV ONE ×2 (00:45→09:00)
[2016-09-23] MEDS: MILRINONE INJ 20 MG in SODIUM CHLORIDE 0.9% INJ 80 ML IV SCH ×2 (01:11→14:58)
[2016-09-23] MEDS: MAGNESIUM SULFATE 1 GM PREMIX 100 ML IV SCH ×2 (01:25→03:13)
[2016-09-23] MEDS: CHLORHEXIDINE GLUCONATE 2 % 1 PACK (2 CLOTHS) TOP SCH (03:05)
[2016-09-23] MEDS: PIPERACIL-TAZO 3.375 GM PREMIX 50 ML IV SCH ×4 (03:12→21:37)
[2016-09-23] MEDS: NOREPINEPHRINE 4 MG/D5W 250 ML IV SCH (03:12)
[2016-09-23 03:23] LABS: HEMATOCRIT 27.4 % (35.0-46.0); MEAN CELL VOLUME 96.2 FL (80.0-100.0); MEAN CORPUSCULAR HEMOGLOBIN 32.7 PG (27.0-34.0); PLATELET COUNT 363 TH/MM3 (150-450); RED BLOOD COUNT 2.85 MIL/MM3 (4.00-5.30); RED CELL DISTRIBUTION WIDTH 13.3 % (11.6-17.2); REVIEW FLAG FINAL; WHITE BLOOD COUNT 13.7 TH/MM3 (4.0-11.0)
[2016-09-23 03:42] LABS: BICARBONATE 27.3 MEQ/L (21.0-32.0); POTASSIUM 3.7 MEQ/L (3.5-5.1)
[2016-09-23] MEDS: HEPARIN-D5W INJ 250 ML IV SCH (03:55)
[2016-09-23 03:59] LABS: APTT (PATIENT) 91.4 SEC (24.3-30.1)
[2016-09-23] MEDS: INSULIN NovoLIN REGULAR SUPPLEMENTAL SCALE SQ SCH ×3 (04:01→17:06)
[2016-09-23] MEDS: BUMETANIDE INJ 100 ML IV SCH (05:54)
[2016-09-23] MEDS: AMIODARONE INJ 450 MG in DEXTROSE 5% IN WATE(EXCEL) INJ 241 ML IV SCH ×2 (05:54)
[2016-09-23 06:27] LABS: APTT (PATIENT) 41.3 SEC (24.3-30.1)
[2016-09-23 08:26] LABS: BICARBONATE 25.8 MEQ/L (21.0-32.0); POTASSIUM 3.3 MEQ/L (3.5-5.1)
--- NOTE | 2016-09-23 08:43 | EKG ---
Date Performed: 09/21/2016 Time Performed: 12:18:36 PTAGE: 89 years EKG: Atrial fibrillation with rapid ventricular response. Inferior/lateral ST-T changes may be d ue to myocardial ischemia Abnormal ECG PREVIOUS TRACING : 09/20/2016 22.04 DOCTOR: Britney Rodriguez Interpretating Date/Time 09/23/2016 08:40:40
[2016-09-23] MEDS: PANTOPRAZOLE SODIUM 40 MG VIAL IV SCH (08:44)
[2016-09-23] MEDS: DOCUSATE SODIUM 50 MG/SENNA 8.6 MG TAB PO SCH ×2 (08:45→20:05)
[2016-09-23] MEDS: DIGOXIN 0.5 MG/2 ML VIAL IV PUSH SCH (08:45)
[2016-09-23] MEDS ORDERED: POTASSIUM CHLORIDE 20 MEQ PWD PACKET OG-TUBE ONE (08:45)
[2016-09-23] MEDS ORDERED: DIGOXIN 0.5 MG/2 ML VIAL IV PUSH ONE (10:15)
--- NOTE | 2016-09-23 10:27 | HHI.CCPN ---
Subjective Remarks/Hospital Course Hospital Course: Admitted by EMS from rehab after left hip fracture repair 10 days ago at [place]. Found unresponsive at rehab facility, full arrest in our ED shortly after intubation. Recent cardiac echo: LVH, EF 45%, Mild-Moderate MR, Moderate , Moderate TR, PA HTN. Subjective: 09/21: neuro exam preserved, follows commands. however, remains in florid shock. art line placed and pulse contour analysis connected and patient remains in severe cardiogenic shock, lactate not clearing as expected. remains on vasopressors. 09/22: despite aggressive inotropic therapy, patient continues to decline. lasix 100mg iv x 1 given yesterday with minimal output. volume overload persists. lasix 200mg iv x 1 ordered this morning, again with only 300cc output. CI continues to be < 2. neuro intact, but cardiogenic shock worsening. will pursue aggressive forced diuresis. palliative consult placed. unlikely to survive. 09/23: Peripheral perfusion is acceptable for marginal. With EF 25% she has no reserve and volume loading is not an option. Low dose inotrope has been arrhythmogenic when tried. Will attempt rate control with digoxin. Objective Vital Signs Date Time Temp Pulse Resp B/P Pulse Ox O2 Delivery O2 Flow Rate FiO2 09/23/16 08:46 99 40 09/23/16 08:00 98.6 129 18 127/65 09/23/16 07:00 Mechanical Ventilator Intake and Output 09/22/16 09/22/16 09/23/16 08:00 16:00 00:00 Intake Total 678 ml 1173 ml 1428 ml Output Total 310 ml 575 ml 875 ml Balance 368 ml 598 ml 553 ml Result Diagram: 09/23/16 0300 09/23/16 0740 Other Results Microbiology Date/Time Procedure Status Source Growth 09/21/16 16:50 Gram Stain - Final Complete Sputum Endotracheal 09/21/16 16:50 Sputum Culture - Final Complete Sputum Endotracheal NO GROWTH IN 48 HOURS. Objective Remarks Head: NL Neck: Supple, orally intubated. Lungs: Diffuse rhonchi, crackles. Heart: Irreg Irreg, rate 120s, no JVD after diuresis. Abdomen: Soft, mildly distended. Quiet. Extremities: Warm, perfused. Resolving edema lowers. Neuro: RASS -2, follows commands. no focal deficits. A/P Assessment and Plan Assessment: 89yF recently post-op s/p hip arthroplasty. She now presents with what appears to be a respiratory arrest from the reports, which has been complicated by cardiac arrest requiring ACLS. She now persists in worsening cardiogenic shock with elevated troponins, elevated BNP. This does not appear to be acute coronary syndrome. Patient's troponins are downtrending and her echo is consistent with global hypokinesis s/p cardiac arrest. She does persist in global cardiogenic shock. Continue inotropic therapy. hold forced diuresis today - excellent response overnight. palliative consult. unlikely to survive. continue aggressive goals per son. DNR. off pathway and remains critically ill with decompensating shock. Plan by systems: Neurologic: Metabolic encephalopathy Ammonia elevated Continue lactulose D/C versed, reduce fentanyl; goal RASS -2 Respiratory: Acute hypoxic and hypercarbic respiratory failure Vent bundle Head of bed at 30 Wean FiO2 for goal SPO2 greater than 90% Trend ABGs No SBT today given cardiogenic shock but try reduced rate Cardiovascular: Cardiogenic shock- worsening. Status post cardiac arrest 09/20 Elevated troponins Type II NSTEMI/Demand Ischemia Acute CHF exacerbation, systolic, likely secondary to acute myocardial dysfunction postcardiac arrest Atrial fibrillation with rapid ventricular response Continue pulse contour analysis continue milrinone 0.375 mcg/kg/min Monitor urine outputs Trend lactates 2d echo: severe global hypokinesis, ef 20%. -- hold amio drip, a-fib appears permanent -- Digoxin for rate control. Renal: Acute kidney injury- worsening Likely secondary to cardiogenic shock Acosta -- Strict I/Os FEN/GI: Acute protein calorie malnutritionsevere Hypokalemia Intravascular volume overload Nothing by mouth while in shock Lasix 200 mg IV 1 without benefit. -- bumex drip. -- diuril x 1. ICU electrolyte protocol serial BMP Heme/ID: Anemia secondary to acute blood loss from recent surgery Possible aspiration pneumonia Possible healthcare associated pneumonia DVT Trend CBC Continue Zosyn, azithromycin, vancomycin Follow-up cultures --patient with DVT while on Xarelto. start heparin drip. Endocrine: Hyperglycemia of critical illness -- SSI, medium scale, every 6 Prophylaxis: GI Prophylaxis Protonix DVT Prophylaxis -- SCDs hold xarelto. continue heparin drip Lines: Left subclavian triple-lumen catheter 09/20 Right radial arterial line 09/21 [place] Dispo: Remain in the ICU. Very critically ill this time. Her progress is slow and she has multiple problems, all exacerbated by her advanced age. We may eventually get her extubated but long-term prognosis is poor. This patient remains critically ill with one or more organ systems which are a threat to life. I have spent 42 minutes discontinuously in the care and management of this patient. This time is exclusive of procedures, and includes , but is not limited to, evaluation of the patient, review of the medical record , discussions with family, consultants, nursing staff, or respiratory therapy, and documentation in the medical record. Ric Reid MD Sep 23, 2016 10:26
[2016-09-23 12:23] LABS: APTT (PATIENT) 39.9 SEC (24.3-30.1)
[2016-09-23 12:50] LABS: BICARBONATE 29.1 MEQ/L (21.0-32.0); MAGNESIUM 2.1 MG/DL (1.5-2.5); POTASSIUM 4.2 MEQ/L (3.5-5.1)
[2016-09-23] MEDS: RESP: ALBUTEROL 2.5 MG/IPRATROPIUM 0.5 MG NEB (PRN) INH (16:04)
[2016-09-23] MEDS: fentaNYL DRIP 250 ML IV SCH (16:11)
[2016-09-23 17:35] LABS: APTT (PATIENT) 37.8 SEC (24.3-30.1)
[2016-09-23] MEDS ORDERED: PHARMACY ORDERED LAB ONE (17:45)
[2016-09-24] VITALS (13 sets, daily range): BP systolic 109–141; BP diastolic 56–65; PULSE 104–123; RESP 16–21; TEMP 98–98.6; O2SAT 94–100
[2016-09-24 00:20] LABS: APTT (PATIENT) 55.6 SEC (24.3-30.1)
[2016-09-24] MEDS: AZITHROMYCIN INJ 500 MG in SODIUM CHLOR 0.9% 250 ML INJ 250 ML IV SCH ×2 (00:34→23:20)
[2016-09-24] MEDS: MILRINONE INJ 20 MG in SODIUM CHLORIDE 0.9% INJ 80 ML IV SCH ×3 (00:35→10:42)
[2016-09-24 00:44] LABS: BICARBONATE 28.3 MEQ/L (21.0-32.0); MAGNESIUM 1.9 MG/DL (1.5-2.5); POTASSIUM 3.7 MEQ/L (3.5-5.1)
[2016-09-24] MEDS: CHLORHEXIDINE GLUCONATE 2 % 1 PACK (2 CLOTHS) TOP SCH (04:00)
[2016-09-24] MEDS: PIPERACIL-TAZO 3.375 GM PREMIX 50 ML IV SCH ×4 (04:58→21:30)
[2016-09-24] MEDS: INSULIN NovoLIN REGULAR SUPPLEMENTAL SCALE SQ SCH ×4 (06:00→17:33)
[2016-09-24 06:08] LABS: MEAN CELL VOLUME 95.8 FL (80.0-100.0); MEAN CORPUSCULAR HEMOGLOBIN 32.1 PG (27.0-34.0); MEAN CORPUSCULAR HGB CONC 33.5 % (32.0-36.0); PLATELET COUNT 327 TH/MM3 (150-450); RED BLOOD COUNT 2.82 MIL/MM3 (4.00-5.30); RED CELL DISTRIBUTION WIDTH 13.4 % (11.6-17.2); REVIEW FLAG FINAL; WHITE BLOOD COUNT 12.3 TH/MM3 (4.0-11.0)
[2016-09-24 06:43] LABS: BICARBONATE 27.2 MEQ/L (21.0-32.0); POTASSIUM 3.6 MEQ/L (3.5-5.1)
[2016-09-24 07:37] LABS: APTT (PATIENT) 50.4 SEC (24.3-30.1)
[2016-09-24] MEDS: DIGOXIN 0.5 MG/2 ML VIAL IV PUSH SCH (08:27)
[2016-09-24] MEDS: PANTOPRAZOLE SODIUM 40 MG VIAL IV SCH (08:27)
[2016-09-24] MEDS: DOCUSATE SODIUM 50 MG/SENNA 8.6 MG TAB PO SCH ×2 (08:27→21:00)
[2016-09-24] MEDS: NOREPINEPHRINE 4 MG/D5W 250 ML IV SCH ×3 (08:27→21:56)
--- NOTE | 2016-09-24 09:58 | HHI.CCPN ---
Subjective Remarks/Hospital Course Hospital Course: Admitted by EMS from rehab after left hip fracture repair 10 days ago at [place]. Found unresponsive at rehab facility, full arrest in our ED shortly after intubation. Recent cardiac echo: LVH, EF 45%, Mild-Moderate MR, Moderate , Moderate TR, PA HTN. Subjective: 09/21: neuro exam preserved, follows commands. however, remains in florid shock. art line placed and pulse contour analysis connected and patient remains in severe cardiogenic shock, lactate not clearing as expected. remains on vasopressors. 09/22: despite aggressive inotropic therapy, patient continues to decline. lasix 100mg iv x 1 given yesterday with minimal output. volume overload persists. lasix 200mg iv x 1 ordered this morning, again with only 300cc output. CI continues to be < 2. neuro intact, but cardiogenic shock worsening. will pursue aggressive forced diuresis. palliative consult placed. unlikely to survive. 09/23: Peripheral perfusion is acceptable but marginal. With EF 25% she has no reserve and volume loading is not an option. Low dose inotrope has been arrhythmogenic when tried. Will attempt rate control with digoxin. 09/24: Peripheral perfusion much improved. Continue milrinone while we dry out lungs and regain renal function. Objective Vital Signs Date Time Temp Pulse Resp B/P Pulse Ox O2 Delivery O2 Flow Rate FiO2 09/24/16 08:00 35 09/24/16 08:00 98.4 123 21 131/62 96 09/24/16 07:00 Mechanical Ventilator Intake and Output 09/23/16 09/23/16 09/24/16 08:00 16:00 00:00 Intake Total 1297 ml 1173 ml 733 ml Output Total 1475 ml 3050 ml 1575 ml Balance -178 ml -1877 ml -842 ml Result Diagram: 09/24/16 0554 09/24/16 0554 Other Results Microbiology Date/Time Procedure Status Source Growth 09/21/16 16:50 Gram Stain - Final Complete Sputum Endotracheal 09/21/16 16:50 Sputum Culture - Final Complete Sputum Endotracheal NO GROWTH IN 48 HOURS. Objective Remarks Head: NL Neck: Supple, orally intubated. Lungs: Clearing with few rhonchi. Heart: Irreg Irreg, rate 120s, no JVD after diuresis. Abdomen: Soft, mildly distended. Quiet. Extremities: Warm, perfused. Resolving edema lowers. Neuro: RASS -2, follows commands. no focal deficits. A/P Assessment and Plan Assessment: 89yF recently post-op s/p hip arthroplasty. She now presents with what appears to be a respiratory arrest from the reports, which has been complicated by cardiac arrest requiring ACLS. She now persists in worsening cardiogenic shock with elevated troponins, elevated BNP. This does not appear to be acute coronary syndrome. Patient's troponins are downtrending and her echo is consistent with global hypokinesis s/p cardiac arrest. She does persist in global cardiogenic shock. Continue inotropic therapy. hold forced diuresis today - excellent response overnight. palliative consult. unlikely to survive. continue aggressive goals per son. DNR. off pathway and remains critically ill. Plan by systems: Neurologic: Metabolic encephalopathy Ammonia elevated Continue lactulose D/C versed, reduce fentanyl; goal RASS -1 Respiratory: Acute hypoxic and hypercarbic respiratory failure Vent bundle Head of bed at 30 Wean FiO2 for goal SPO2 greater than 90% Trend ABGs No SBT today given cardiogenic, tolerated reduced rate Cardiovascular: Cardiogenic shock- worsening. Status post cardiac arrest 09/20 Elevated troponins Type II NSTEMI/Demand Ischemia Acute CHF exacerbation, systolic, likely secondary to acute myocardial dysfunction postcardiac arrest Atrial fibrillation with rapid ventricular response Continue pulse contour analysis continue milrinone 0.375 mcg/kg/min Monitor urine outputs Trend lactates 2d echo: severe global hypokinesis, ef 20%. -- hold amio drip, a-fib appears permanent -- Digoxin for rate control. Renal: Acute kidney injury- worsening Likely secondary to cardiogenic shock Acosta -- Strict I/Os FEN/GI: Acute protein calorie malnutritionsevere Hypokalemia Intravascular volume overload Nothing by mouth while in shock Lasix 200 mg IV 1 without benefit. -- bumex drip. -- diuril x 1. ICU electrolyte protocol serial BMP Heme/ID: Anemia secondary to acute blood loss from recent surgery Possible aspiration pneumonia Possible healthcare associated pneumonia DVT Trend CBC Continue Zosyn, azithromycin, vancomycin Follow-up cultures --patient with DVT while on Xarelto. start heparin drip. Endocrine: Hyperglycemia of critical illness -- SSI, medium scale, every 6 Prophylaxis: GI Prophylaxis Protonix DVT Prophylaxis -- SCDs hold xarelto. continue heparin drip Lines: Left subclavian triple-lumen catheter 6/24 Right radial arterial line 09/21 [place] Dispo: Remain in the ICU. Very critically ill this time. Her progress is slow and she has multiple problems, all exacerbated by her advanced age. We may eventually get her extubated but long-term prognosis is poor. This patient remains critically ill with one or more organ systems which are a threat to life. I have spent 37 minutes discontinuously in the care and management of this patient. This time is exclusive of procedures, and includes , but is not limited to, evaluation of the patient, review of the medical record , discussions with family, consultants, nursing staff, or respiratory therapy, and documentation in the medical record. Ric Reid MD Sep 24, 2016 09:58
[2016-09-24] MEDS ORDERED: DIGOXIN 0.5 MG/2 ML VIAL IV PUSH ONE (10:00)
[2016-09-24 10:39] LABS: MAGNESIUM 1.9 MG/DL (1.5-2.5)
--- NOTE | 2016-09-24 10:49 | HHI.HCPN ---
Reason for visit a. To assist with evaluation and management of symptoms including: pain; dyspnea; encephalopathy b. To assist medical decision maker(s) with: better understanding of current medical conditions; weighing benefits/burdens of medical treatment options; making medical treatment decisions. . Subjective/Interval History Ms. Navas remains intubated, mechanically ventilated, pressor dependent, and minimally responsive in the SICU. She will grimace and arouse to stimulation. She can inconsistently amd weakly squeeze fingers and wiggle toes on command. Nurse reports that when she attempts to wean the fentanyl drip (currently at 150 mcg/hr) the patient's heart rate and blood pressure soars. She is currently off midazolam but is on midarone and norepinephrine drips. Nursing pain level scores are at "0" with the fentanyl drip running. Afebrile. HR 106-123. 02 sat 95-96 on vent with FI02 35-40 %. BP 114-155/55- 71. Urine output good (now off bumetadide). Not stooling. WBC normalizing. Hg down to 9.0. Creatinine inching up to 1.9. Urine cx + for oleg glabrata. . . Family/friend interactions Spoke by phone with patient's son. He has been in contact with elder affairs compliance attorney -- Liss Richard. He has given me permission to speak with Mr. Richard about his mother's medical condition should Mr. Richard need this information. I updated son on patient's condition. He is aware she remains critically ill and could easily in the ICU. He continues to hope that she would recover enough to authorize him to access her funds to care for her or pay for expenses, etc. I have explained that this level of recovery is possible but continues to appear unlikely. Given her advanced age and combination of problems, there is greater probability that she will suffer further complications and setback prior to re-gaining capacity to make such decisions. There is no change in goals at this time. He continues to desire aggressive care for his mother short of chest compressions and shock. . Advance Directives Living Will: Never completed Health Care Surrogate: Never completed Durable Power of Floor Installer: Never completed Advance Directive Specifics Date completed: Advance directives were never completed. [facility] notes state, " Resident does not wish to create any advance directives at this time. Resident in process of handling some legal matters with marioney before creating any new advance directives." . Health Care Surrogate(s): No written designation of health care surrogate. . Documented care wishes: No written documentation of health care goals/preferences. . Objective Vital Signs Date Time Temp Pulse Resp B/P Pulse Ox O2 Delivery O2 Flow Rate FiO2 09/24/16 08:00 35 09/24/16 08:00 98.4 123 21 131/62 96 09/24/16 07:59 95 35 09/24/16 07:00 96 Mechanical Ventilator 40 09/24/16 04:44 96 35 09/24/16 04:00 98.0 108 17 141/65 96 09/24/16 04:00 40 09/24/16 00:35 97 35 09/24/16 00:00 98.4 106 16 123/61 98 09/24/16 00:00 40 09/23/16 20:00 40 09/23/16 20:00 98.6 118 17 155/71 97 09/23/16 19:23 100 35 09/23/16 19:00 97 Mechanical Ventilator 40 09/23/16 16:50 98 35 09/23/16 16:00 40 09/23/16 16:00 98.2 106 16 136/67 100 09/23/16 12:48 97 35 09/23/16 12:00 97.8 111 18 103/55 97 09/23/16 12:00 40 Intake & Output 09/24/16 09/24/16 07:00 19:00 Intake Total 1709 ml Output Total 2825 ml Balance -1116 ml IV Total 1709 ml Output Urine Total 2725 ml Gastric Drainage Total 100 ml . Physical Exam CONSTITUTIONAL/GENERAL: Pale, frail appearing female in SICU bed -- sedated, mechanically ventilated. Appears comfortable when not disturbed; grimaces when stimulated. TUBES/LINES/DRAINS: orotracheal tube; orogastric tube; left subclavian central line; gomez catheter; right radial arterial line; SCD on left lower extremity; bilateral soft wrist restraints. SKIN: No jaundice, rashes. Pressure sores both heels. Ecchymoses on upper extremities. Skin temperature appropriate. Not diaphoretic. EYES: Pupils equal and round. Cannot evaluate EOMs -- stares straight ahead. No scleral icterus. No injection or drainage. Fundi not examined. ENT: Unable to evaluate hearing. . Nose without bleeding or purulent drainage. Throat without visible erythema, exudates, masses, or lesions though difficult to assess due to intubation. NECK: Trachea midline. CARDIOVASCULAR: Tachycardic, irregular. No audible murmurs, gallops, or rubs. No JVD. RESPIRATORY/CHEST: Symmetric, unlabored respirations. Faint ronchi bilaterally. No audible wheezes. GASTROINTESTINAL: Abdomen soft, non-tender, nondistended. No hepato-splenomegaly , or palpable masses. No guarding. Bowel sounds hypoactive. GENITOURINARY: Without palpable bladder distension. Gomez catheter in place. MUSCULOSKELETAL: Extremities without clubbing, cyanosis, or edema. LYMPHATICS: Not examined. NEUROLOGICAL: Sedated. Follows few simple commands inconsistently. PSYCHIATRIC: Unable to evaluate due to level of responsiveness. . Diagnostic Tests Laboratory Laboratory Tests Test 09/21/16 09/21/16 09/21/16 09/22/16 11:44 12:20 21:01 02:14 Blood Gas Puncture Site RT BRACHIAL Blood Gas Patient Temperature 98.6 Blood Gas HCO3 22 mmol/L (22-26) Blood Gas Base Excess -1.6 mmol/L (-2-2) Blood Gas Oxygen Saturation 98 % (90-100) Arterial Blood pH 7.48 (7.380-7.420) Arterial Blood Partial 29 mmHg (38-42) Pressure CO2 Arterial Blood Partial 152 mmHg Pressure O2 (61-120) Arterial Blood Oxygen Content 15.2 Vol % (12.0-20.0) Arterial Blood 1.3 % (0-4) Carboxyhemoglobin Arterial Blood Methemoglobin 0.2 % (0-2) Blood Gas Hemoglobin 10.8 G/DL (12.0-16.0) Oxygen Delivery Device VENTILATOR Blood Gas Ventilator Setting 450/18/+5/0.90 Blood Gas Inspired Oxygen 40 % Prothrombin Time 12.1 SEC (9.8-11.6) Prothromb Time International 1.1 RATIO Ratio Activated Partial 32.0 SEC Thromboplast Time (24.3-30.1) Fibrinogen 506 mg/dL (227-377) Lactic Acid Level 2.1 mmol/L (0.4-2.0) Troponin I 4.93 NG/ML 3.84 NG/ML 3.48 NG/ML (0.02-0.05) (0.02-0.05) (0.02-0.05) White Blood Count 19.0 TH/MM3 (4.0-11.0) Red Blood Count 3.30 MIL/MM3 (4.00-5.30) Hemoglobin 10.5 GM/DL (11.6-15.3) Hematocrit 32.1 % (35.0-46.0) Mean Corpuscular Volume 97.1 FL (80.0-100.0) Mean Corpuscular Hemoglobin 31.9 PG (27.0-34.0) Mean Corpuscular Hemoglobin 32.9 % Concent (32.0-36.0) Red Cell Distribution Width 13.8 % (11.6-17.2) Platelet Count 364 TH/MM3 (150-450) Mean Platelet Volume 8.1 FL (7.0-11.0) Sodium Level 139 MEQ/L (136-145) Potassium Level 3.7 MEQ/L (3.5-5.1) Chloride Level 104 MEQ/L (98-107) Carbon Dioxide Level 24.6 MEQ/L (21.0-32.0) Anion Gap 10 MEQ/L (5-15) Blood Urea Nitrogen 22 MG/DL (7-18) Creatinine 1.40 MG/DL (0.50-1.00) Estimat Glomerular Filtration 35 ML/MIN (>89) Rate Random Glucose 127 MG/DL (74-106) Calcium Level 8.0 MG/DL (8.5-10.1) Test 09/22/16 09/22/16 09/22/16 09/22/16 07:45 15:30 18:52 23:25 Prothrombin Time 12.0 SEC (9.8-11.6) Prothromb Time International 1.1 RATIO Ratio Activated Partial 30.8 SEC 81.1 SEC 90.7 SEC Thromboplast Time (24.3-30.1) (24.3-30.1) (24.3-30.1) Troponin I 3.31 NG/ML 2.93 NG/ML (0.02-0.05) (0.02-0.05) Sodium Level 137 MEQ/L 140 MEQ/L (136-145) (136-145) Potassium Level 3.6 MEQ/L 3.3 MEQ/L (3.5-5.1) (3.5-5.1) Chloride Level 103 MEQ/L 103 MEQ/L (98-107) (98-107) Carbon Dioxide Level 25.1 MEQ/L 25.7 MEQ/L (21.0-32.0) (21.0-32.0) Anion Gap 9 MEQ/L (5-15) 11 MEQ/L (5-15) Blood Urea Nitrogen 26 MG/DL (7-18) 24 MG/DL (7-18) Creatinine 1.65 MG/DL 1.69 MG/DL (0.50-1.00) (0.50-1.00) Estimat Glomerular Filtration 29 ML/MIN (>89) 28 ML/MIN (>89) Rate Random Glucose 118 MG/DL 118 MG/DL (74-106) (74-106) Calcium Level 7.6 MG/DL 7.8 MG/DL (8.5-10.1) (8.5-10.1) Magnesium Level 1.7 MG/DL 1.6 MG/DL (1.5-2.5) (1.5-2.5) Test 09/23/16 09/23/16 09/23/16 09/23/16 03:00 06:00 07:40 12:00 White Blood Count 13.7 TH/MM3 (4.0-11.0) Red Blood Count 2.85 MIL/MM3 (4.00-5.30) Hemoglobin 9.3 GM/DL (11.6-15.3) Hematocrit 27.4 % (35.0-46.0) Mean Corpuscular Volume 96.2 FL (80.0-100.0) Mean Corpuscular Hemoglobin 32.7 PG (27.0-34.0) Mean Corpuscular Hemoglobin 34.0 % Concent (32.0-36.0) Red Cell Distribution Width 13.3 % (11.6-17.2) Platelet Count 363 TH/MM3 (150-450) Mean Platelet Volume 8.1 FL (7.0-11.0) Activated Partial 91.4 SEC 41.3 SEC 39.9 SEC Thromboplast Time (24.3-30.1) (24.3-30.1) (24.3-30.1) Sodium Level 137 MEQ/L 137 MEQ/L 137 MEQ/L (136-145) (136-145) (136-145) Potassium Level 3.7 MEQ/L 3.3 MEQ/L 4.2 MEQ/L (3.5-5.1) (3.5-5.1) (3.5-5.1) Chloride Level 102 MEQ/L 101 MEQ/L 101 MEQ/L (98-107) (98-107) (98-107) Carbon Dioxide Level 27.3 MEQ/L 25.8 MEQ/L 29.1 MEQ/L (21.0-32.0) (21.0-32.0) (21.0-32.0) Anion Gap 8 MEQ/L (5-15) 10 MEQ/L (5-15) 7 MEQ/L (5-15) Blood Urea Nitrogen 25 MG/DL (7-18) 25 MG/DL (7-18) 24 MG/DL (7-18) Creatinine 1.78 MG/DL 1.75 MG/DL 1.81 MG/DL (0.50-1.00) (0.50-1.00) (0.50-1.00) Estimat Glomerular Filtration 27 ML/MIN (>89) 27 ML/MIN (>89) 26 ML/MIN (>89) Rate Random Glucose 123 MG/DL 122 MG/DL 107 MG/DL (74-106) (74-106) (74-106) Calcium Level 7.9 MG/DL 8.0 MG/DL 7.9 MG/DL (8.5-10.1) (8.5-10.1) (8.5-10.1) Troponin I 2.50 NG/ML 1.80 NG/ML (0.02-0.05) (0.02-0.05) Magnesium Level 2.0 MG/DL 2.1 MG/DL (1.5-2.5) (1.5-2.5) Test 09/23/16 09/23/16 09/23/16 09/24/16 17:19 17:22 23:56 05:54 Vancomycin Level Trough 24.2 MCG/ML (5.0-10.0) Activated Partial 37.8 SEC 55.6 SEC Thromboplast Time (24.3-30.1) (24.3-30.1) Sodium Level 137 MEQ/L 134 MEQ/L (136-145) (136-145) Potassium Level 3.7 MEQ/L 3.6 MEQ/L (3.5-5.1) (3.5-5.1) Chloride Level 99 MEQ/L 98 MEQ/L (98-107) (98-107) Carbon Dioxide Level 28.3 MEQ/L 27.2 MEQ/L (21.0-32.0) (21.0-32.0) Anion Gap 10 MEQ/L (5-15) 9 MEQ/L (5-15) Blood Urea Nitrogen 24 MG/DL (7-18) 25 MG/DL (7-18) Creatinine 1.86 MG/DL 1.90 MG/DL (0.50-1.00) (0.50-1.00) Estimat Glomerular Filtration 26 ML/MIN (>89) 25 ML/MIN (>89) Rate Random Glucose 109 MG/DL 117 MG/DL (74-106) (74-106) Calcium Level 8.2 MG/DL 8.2 MG/DL (8.5-10.1) (8.5-10.1) Magnesium Level 1.9 MG/DL (1.5-2.5) White Blood Count 12.3 TH/MM3 (4.0-11.0) Red Blood Count 2.82 MIL/MM3 (4.00-5.30) Hemoglobin 9.0 GM/DL (11.6-15.3) Hematocrit 27.0 % (35.0-46.0) Mean Corpuscular Volume 95.8 FL (80.0-100.0) Mean Corpuscular Hemoglobin 32.1 PG (27.0-34.0) Mean Corpuscular Hemoglobin 33.5 % Concent (32.0-36.0) Red Cell Distribution Width 13.4 % (11.6-17.2) Platelet Count 327 TH/MM3 (150-450) Mean Platelet Volume 7.6 FL (7.0-11.0) Random Vancomycin Level 19.4 COMMENT Test 09/24/16 07:00 Activated Partial 50.4 SEC Thromboplast Time (24.3-30.1) . Result Diagram: 09/24/16 0554 09/24/16 0554 Microbiology Microbiology Date/Time Procedure Status Source Growth 09/21/16 16:50 Gram Stain - Final Complete Sputum Endotracheal 09/21/16 16:50 Sputum Culture - Final Complete Sputum Endotracheal NO GROWTH IN 48 HOURS. * Urine cx 09/20/16 --> Oleg glabrata . Imaging Last Impressions Chest X-Ray 09/22/16 0500 Signed Impressions: Service Date/Time: Thursday, September 22, 2016 03:46 - CONCLUSION: Interval development of left lower lobe consolidation and tiny right pleural effusion. Interval resolution of the upper lobe infiltrates. Matthew Cheng MD Upper Extremity Ultrasound 09/21/16 0000 Signed Impressions: Service Date/Time: Wednesday, September 21, 2016 21:57 - CONCLUSION: Intact flow seen in the deep venous system of the deep venous system which can be imaged. Cannot image left subclavian or cephalic veins. Mtathew Cheng MD Lower Extremity Ultrasound 09/21/16 0000 Signed Impressions: Service Date/Time: Wednesday, September 21, 2016 21:19 - CONCLUSION: Deep venous thrombosis within the right posterior tibial veins. Cornelio Ortega MD Head CT 09/20/166 Signed Impressions: Service Date/Time: Tuesday, September 20, 2016 22:39 - CONCLUSION: 1. Mild cerebral atrophy and periventricular/subcortical white matter small vessel ischemic changes bilaterally. 2. No acute infarct, acute hemorrhage mass effect or extra axial fluid collections. Cornelio Ortega MD . Procedures * Intubation/mechanical ventilation * Left subclavian central line * Right radial arterial line . Assessment and Plan Disease Oriented Problem List: (1) Cardiopulmonary arrest (2) Respiratory failure (3) Pneumonia (4) Atrial fibrillation with RVR (5) Shock Comment: Probably a combination of septic shock (fever, elevated WBC, + urine cx) and cardiogenic shock. . (6) Intertrochanteric fracture of left femur (7) Acquired hypothyroidism (8) Hypoalbuminemia (9) UTI (urinary tract infection) Comment: Oleg galbrata . . (10) Deep venous thrombosis Comment: right posterior tibial veins . (11) Acute kidney injury (12) Anemia Symptom Scale: (1) Pain 0-10 Scale: Unable to quantify Comment: Patient was experiencing pain at hip surgery site requiring intermittent use of hydrocodone 7.5 mg prior to her admission. Other possible sources of pain include intubations; prolonged bedbound status; catheters; SCD; etc. Pain currently appears to be controlled with a fentanyl drip. Still grimaces with stimulation. . (2) Dyspnea 0-10 Scale: Unable to quantify Comment: Dyspnea currently controlled with mechanical ventilation. Fentanyl drip would also serve to prevent air hunger. . (3) Encephalopathy 0-10 Scale: Unable to quantify (Patient is able to follow simple commands.) Comment: Patient able to follow some simple commands inconsistently in the ICU. Son reports patient has had altered mental status of varying severity for 6 months with hallucinations and paranoia. Specific etiology is unclear. . Pertinent Non-Medical Issues Psychosocial: . One son. Had been living alone but declining, prior to hip fracture. Spiritual: Not an important part of her life. Legal: No advance directive, no financial will. Son is meeting elder compliance attorney on 09/22/16. Son is health care proxy. Ethical issues impacting care: Patient is incapacitated. Uncertain if she will be able to regain capacity. . Important Contacts * Sergey Stone (son; proxy) [phone]; [phone]; [phone] * Verónica ([id number]) [phone] . Prognosis Patient suffered a cardiac arrest in the ED, has a low ejection fraction, is ventilator dependent, is not clearing lactate, has a DVT, is high dose pressor dependent, is malnourished, and has refractory tachycardia. Float Nurse believes chances of survival are small at this time. Should patient survive the ICU, her chances of alf survival remain poor. She would be appropriate for hospice services at such time that patient/family opts to focus on comfort care. . Code Status: Alternative Code (Son desires aggressive care short of cardiac shock and chest compression. ) Plan == Code Status; ALTERNATE CODE. (Have changed status to alternate code. Son would want patient re-intubated if extubated (accidentally or medically) and she developed respiratory distress. Son essentially wants full aggressive care short of chest compressions and shock at this time. == Decision maker: Though inconsistently able to follow simple commands, patient is critically ill and unable to weigh the benefits and burdens of treatment options. She is therefore incapacitated to make her own health care decisions. As there is no written designation of health care surrogate, and she is a , her son -- Sergey Stone -- becomes the legal health care proxy. Currently doubtful that the patient will re-gain capacity. == Goals: Though son understands that prognosis is very poor, he desires aggressive care short of chest compressions/shock. He is hoping she will awaken enough to facilitate legal issues enabling him to settle her estate should she pass or use her funds to care for her if she survives. == Pain: Pain sources noted above. Currently on fentanyl drip with titration orders which appears to be working. No further recommendations at this time. == Dyspnea: Currently managed with mechanical ventilation. Fentanyl drip is titratable and will also help to prevent any air hunger. No further recommendations at this time. == Encephalopathy: Patient is inconsistently able to follow simple commands. Currently unable to tolerate sedation vacations. Patient is not capable of making her own health care decisions at this time and it is uncertain if she will re-gain that capacity. Given her history of hallucinations and paranoia at home prior to her fall, she is likely to have delirium should she begin to recover in the ICU. == Son does not want to see her in this condition and is not coming in to visit. == Palliative care will continue to follow to assist with symptom management and to further clarify goals of medical treatment as the clinical course evolves. . Time Spent Total Floor Time (mins): 40 (Total floor time included chart review, patient exam, collaboration with primary nurse, and above referenced telephone conversation with patient's son.) Face to Face Time (mins): 10 >50% Counseling/Coord of Care: Yes Attestation To help prompt me to consider important information that might be impacting today's encounter and assessment, information from prior notes written by myself or my colleagues may have been "brought forward" into today's note. My signature on this note, however, is an attestation that I personally performed the exam, history, and/or decision-making noted today, and, unless otherwise indicated, the interactions with patient, family, and staff as well as the review of records all occurred today. I also attest that the listed assessment and stated plan reflect my best clinical judgment today based on the combination of historical information, prior notes, and today's exam/ interactions. When time spent is documented, it refers only to time spent today by the signer, or if indicated, combined time spent today by collaborating physician/nurse practitioner. . Florian Cassidy MD Sep 24, 2016 10:49
[2016-09-24] MEDS: BENEPROTEIN POWDER 1 PACK G-TUBE SCH ×2 (12:22→16:16)
[2016-09-24] MEDS: fentaNYL DRIP 250 ML IV SCH (13:23)
[2016-09-24] MEDS: HEPARIN-D5W INJ 250 ML IV SCH (13:24)
[2016-09-24] MEDS ORDERED: VANCOMYCIN INJ 1,250 MG in SODIUM CHLOR 0.9% 250 ML INJ 250 ML IV ONE (15:00)
[2016-09-24] MEDS ORDERED: MAGNESIUM SULFATE INJ 2 GM in SODIUM CHLORIDE 0.9% INJ 96 ML IV PRN (20:00)
[2016-09-24] MEDS ORDERED: POTASSIUM PHOSPHATE INJ 30 MMOL in SODIUM CHLOR 0.9% 250 ML INJ 250 ML IV PRN (20:00)
[2016-09-24] MEDS ORDERED: MAGNESIUM SULFATE INJ 4 GM in SODIUM CHLORIDE 0.9% INJ 92 ML IV PRN (20:00)
[2016-09-24] MEDS ORDERED: POTASSIUM CHLOR 20 MEQ PREMIX 100 ML IV PRN ×2 (20:00)
[2016-09-24] MEDS ORDERED: MAGNESIUM OXIDE 400 MG TAB PO PRN (20:00)
[2016-09-24] MEDS ORDERED: POTASSIUM CHLOR 40 MEQ PREMIX 100 ML IV PRN ×2 (20:00)
[2016-09-24] MEDS ORDERED: POTASSIUM PHOSPHATE MONOBASIC 500 MG TAB PO/TUBE PRN (20:00)
[2016-09-24] MEDS ORDERED: POTASSIUM CHLORIDE 25 MEQ EFFERVESCENT TAB PO PRN (20:00)
[2016-09-24] MEDS ORDERED: SODIUM PHOSPHATE INJ 30 MMOL in SODIUM CHLOR 0.9% 250 ML INJ 240 ML IV PRN (20:00)
[2016-09-24] MEDS ORDERED: POTASSIUM PHOSPHATE MONOBASIC 500 MG TAB PO PRN (20:00)
[2016-09-24 20:59] LABS: BICARBONATE 26.6 MEQ/L (21.0-32.0); MAGNESIUM 1.8 MG/DL (1.5-2.5); POTASSIUM 3.3 MEQ/L (3.5-5.1)
[2016-09-24 22:07] LABS: INDIRECT BILIRUBIN 0.3 MG/DL (0.0-0.8); TOTAL BILIRUBIN ADULT 0.6 MG/DL (0.2-1.0)
[2016-09-25] VITALS (12 sets, daily range): BP systolic 112–183; BP diastolic 54–75; PULSE 86–111; RESP 16–21; TEMP 97.7–99.1; O2SAT 95–100
[2016-09-25] MEDS: PIPERACIL-TAZO 3.375 GM PREMIX 50 ML IV SCH ×2 (03:54→10:31)
[2016-09-25] MEDS: CHLORHEXIDINE GLUCONATE 2 % 1 PACK (2 CLOTHS) TOP SCH (04:00)
[2016-09-25 05:40] LABS: HEMATOCRIT 25.8 % (35.0-46.0); MEAN CELL VOLUME 94.6 FL (80.0-100.0); MEAN CORPUSCULAR HEMOGLOBIN 32.1 PG (27.0-34.0); MEAN CORPUSCULAR HGB CONC 33.9 % (32.0-36.0); PLATELET COUNT 309 TH/MM3 (150-450); RED BLOOD COUNT 2.73 MIL/MM3 (4.00-5.30); RED CELL DISTRIBUTION WIDTH 13.1 % (11.6-17.2); REVIEW FLAG FINAL; WHITE BLOOD COUNT 11.2 TH/MM3 (4.0-11.0)
[2016-09-25 06:03] LABS: BICARBONATE 28.4 MEQ/L (21.0-32.0); MAGNESIUM 1.8 MG/DL (1.5-2.5); POTASSIUM 3.6 MEQ/L (3.5-5.1)
--- NOTE | 2016-09-25 06:06 | RADRPT ---
EXAM DATE/TIME: 09/25/2016 04:27 [facility] COMPARISON: CHEST SINGLE AP, September 22, 2016, 3:46. INDICATIONS : Shortness of breath MEDICAL HISTORY : None. SURGICAL HISTORY : None. ENCOUNTER: Subsequent ACUITY: 4 - 6 days PAIN SCORE: Non-responsive. LOCATION: Bilateral chest FINDINGS: Endotracheal tube tip well above the trevor. Gastric tube traverses the [id number]. Left subclav olvin catheter tip at the proximal superior vena cava. There is persisting consolidation with minimal right lung with loss of delineation of the entire left heart border and left hemidiaphragm. Fullness in the right hilar region and consolidation medial right also stable. Stable deformity proximal lef t humerus. CONCLUSION: Persistent consolidation lower lobes, left greater than right. Matthew Cheng MD on September 25, 2016 at 6:03 Board Certified Radiologist. This report was verified electronically.
[2016-09-25] MEDS: fentaNYL DRIP 250 ML IV SCH (06:46)
[2016-09-25] MEDS: BENEPROTEIN POWDER 1 PACK G-TUBE SCH ×3 (08:13→17:52)
[2016-09-25] MEDS: NOREPINEPHRINE 4 MG/D5W 250 ML IV SCH ×2 (08:14→16:28)
[2016-09-25] MEDS: DOCUSATE SODIUM 50 MG/SENNA 8.6 MG TAB PO SCH ×2 (08:14→21:00)
[2016-09-25] MEDS: DIGOXIN 0.5 MG/2 ML VIAL IV PUSH SCH (08:14)
[2016-09-25] MEDS: PANTOPRAZOLE SODIUM 40 MG VIAL IV SCH (08:14)
--- NOTE | 2016-09-25 10:24 | HHI.HCPN ---
Reason for visit a. To assist with evaluation and management of symptoms including: pain; dyspnea; encephalopathy b. To assist medical decision maker(s) with: better understanding of current medical conditions; weighing benefits/burdens of medical treatment options; making medical treatment decisions. . Subjective/Interval History Ms. Navas remains intubated, mechanically ventilated, pressor dependent, and minimally responsive in the SICU. She will grimace and arouse to stimulation. She can inconsistently and weakly squeeze fingers and wiggle toes on command. At time of my visit, fentanyl is running at 225 mcg/hr and norepinephrine at 11. Remains on her milrinone drip. Tube feedings under way. Nursing pain level scores are at "1-4" with the fentanyl drip running. Afebrile. Remains tachycardic. 02 sat 94-100 on vent with FI02 35-40 %. BP 109-141/540-65 Urine output 2475 (now off bumetadide). WBC normalizing. Hg down to 8.8. Creatinine 1.83 CXR shows persistent consolidation in the lower lobes L > R Urine cx + for oleg glabrata. . . Family/friend interactions No discussion with family/friends today. Son told me yesterday to expect a phone call from his finance attorney -- Liss Richard. He has given me verbal authorization to discuss the patient's clinical condition with Mr. Richard. . Advance Directives Living Will: Never completed Health Care Surrogate: Never completed Durable Power of Newswriter: Never completed Advance Directive Specifics Date completed: Advance directives were never completed. custodial notes state, " Resident does not wish to create any advance directives at this time. Resident in process of handling some legal matters with atorney before creating any new advance directives." . Health Care Surrogate(s): No written designation of health care surrogate. . Documented care wishes: No written documentation of health care goals/preferences. . Objective Vital Signs Date Time Temp Pulse Resp B/P Pulse Ox O2 Delivery O2 Flow Rate FiO2 09/25/16 08:49 100 35 09/25/16 04:26 100 35 09/25/16 04:00 35 09/25/16 04:00 98.2 102 16 138/65 95 09/25/16 01:00 95 35 09/25/16 00:00 35 09/25/16 00:00 98.5 109 16 112/54 95 09/24/16 22:20 95 35 09/24/16 20:00 35 09/24/16 20:00 98.6 104 17 109/62 94 09/24/16 19:43 95 35 09/24/16 19:00 94 Mechanical Ventilator 40 09/24/16 16:01 95 35 09/24/16 16:00 35 09/24/16 16:00 98.2 104 16 138/56 95 09/24/16 12:06 96 35 09/24/16 12:00 35 09/24/16 12:00 98.1 110 16 133/59 94 Intake & Output 09/25/16 09/25/16 07:00 19:00 Intake Total 2746 ml Output Total 1225 ml Balance 1521 ml IV Total 2289 ml Tube Feeding 337 ml Other 120 ml Output Urine Total 1225 ml Gastric Drainage Total 0 ml Tube Feeding Residual Discard 0 ml . Physical Exam CONSTITUTIONAL/GENERAL: Pale, frail appearing female in SICU bed -- sedated, mechanically ventilated. Appears comfortable when not disturbed; grimaces when stimulated. Eyes open intermittently. TUBES/LINES/DRAINS: orotracheal tube; orogastric tube; left subclavian central line; gomez catheter; right radial arterial line; SCD on left lower extremity; bilateral soft wrist restraints. SKIN: No jaundice, rashes. Pressure sores both heels. Ecchymoses on upper extremities. Skin temperature appropriate. Not diaphoretic. EYES: Pupils equal and round. Cannot evaluate EOMs -- stares straight ahead. No scleral icterus. No injection or drainage. Fundi not examined. ENT: Unable to evaluate hearing. . Nose without bleeding or purulent drainage. Throat without visible erythema, exudates, masses, or lesions though difficult to assess due to intubation. NECK: Trachea midline. CARDIOVASCULAR: Tachycardic, irregular. No audible murmurs, gallops, or rubs. No JVD. RESPIRATORY/CHEST: Symmetric, unlabored respirations. Coarse breath sounds bilaterally. No audible wheezes. GASTROINTESTINAL: Abdomen soft, non-tender, nondistended. No hepato-splenomegaly , or palpable masses. No guarding. Bowel sounds hypoactive. GENITOURINARY: Without palpable bladder distension. Gomez catheter in place. MUSCULOSKELETAL: Extremities without clubbing, cyanosis. Trace edema LYMPHATICS: Not examined. NEUROLOGICAL: Sedated. Follows few simple commands inconsistently. PSYCHIATRIC: Unable to evaluate due to level of responsiveness. . Diagnostic Tests Laboratory Laboratory Tests Test 09/22/16 09/22/16 09/22/16 09/23/16 15:30 18:52 23:25 03:00 Activated Partial 81.1 SEC 90.7 SEC 91.4 SEC Thromboplast Time (24.3-30.1) (24.3-30.1) (24.3-30.1) Troponin I 3.31 NG/ML 2.93 NG/ML 2.50 NG/ML (0.02-0.05) (0.02-0.05) (0.02-0.05) Sodium Level 137 MEQ/L 140 MEQ/L 137 MEQ/L (136-145) (136-145) (136-145) Potassium Level 3.6 MEQ/L 3.3 MEQ/L 3.7 MEQ/L (3.5-5.1) (3.5-5.1) (3.5-5.1) Chloride Level 103 MEQ/L 103 MEQ/L 102 MEQ/L (98-107) (98-107) (98-107) Carbon Dioxide Level 25.1 MEQ/L 25.7 MEQ/L 27.3 MEQ/L (21.0-32.0) (21.0-32.0) (21.0-32.0) Anion Gap 9 MEQ/L (5-15) 11 MEQ/L (5-15) 8 MEQ/L (5-15) Blood Urea Nitrogen 26 MG/DL (7-18) 24 MG/DL (7-18) 25 MG/DL (7-18) Creatinine 1.65 MG/DL 1.69 MG/DL 1.78 MG/DL (0.50-1.00) (0.50-1.00) (0.50-1.00) Estimat Glomerular Filtration 29 ML/MIN (>89) 28 ML/MIN (>89) 27 ML/MIN (>89) Rate Random Glucose 118 MG/DL 118 MG/DL 123 MG/DL (74-106) (74-106) (74-106) Calcium Level 7.6 MG/DL 7.8 MG/DL 7.9 MG/DL (8.5-10.1) (8.5-10.1) (8.5-10.1) Magnesium Level 1.7 MG/DL 1.6 MG/DL (1.5-2.5) (1.5-2.5) White Blood Count 13.7 TH/MM3 (4.0-11.0) Red Blood Count 2.85 MIL/MM3 (4.00-5.30) Hemoglobin 9.3 GM/DL (11.6-15.3) Hematocrit 27.4 % (35.0-46.0) Mean Corpuscular Volume 96.2 FL (80.0-100.0) Mean Corpuscular Hemoglobin 32.7 PG (27.0-34.0) Mean Corpuscular Hemoglobin 34.0 % Concent (32.0-36.0) Red Cell Distribution Width 13.3 % (11.6-17.2) Platelet Count 363 TH/MM3 (150-450) Mean Platelet Volume 8.1 FL (7.0-11.0) Test 09/23/16 09/23/16 09/23/16 09/23/16 06:00 07:40 12:00 17:19 Activated Partial 41.3 SEC 39.9 SEC Thromboplast Time (24.3-30.1) (24.3-30.1) Sodium Level 137 MEQ/L 137 MEQ/L (136-145) (136-145) Potassium Level 3.3 MEQ/L 4.2 MEQ/L (3.5-5.1) (3.5-5.1) Chloride Level 101 MEQ/L 101 MEQ/L (98-107) (98-107) Carbon Dioxide Level 25.8 MEQ/L 29.1 MEQ/L (21.0-32.0) (21.0-32.0) Anion Gap 10 MEQ/L (5-15) 7 MEQ/L (5-15) Blood Urea Nitrogen 25 MG/DL (7-18) 24 MG/DL (7-18) Creatinine 1.75 MG/DL 1.81 MG/DL (0.50-1.00) (0.50-1.00) Estimat Glomerular Filtration 27 ML/MIN (>89) 26 ML/MIN (>89) Rate Random Glucose 122 MG/DL 107 MG/DL (74-106) (74-106) Calcium Level 8.0 MG/DL 7.9 MG/DL (8.5-10.1) (8.5-10.1) Magnesium Level 2.0 MG/DL 2.1 MG/DL (1.5-2.5) (1.5-2.5) Troponin I 1.80 NG/ML (0.02-0.05) Vancomycin Level Trough 24.2 MCG/ML (5.0-10.0) Test 09/23/16 09/23/16 09/24/16 09/24/16 17:22 23:56 05:54 07:00 Activated Partial 37.8 SEC 55.6 SEC 50.4 SEC Thromboplast Time (24.3-30.1) (24.3-30.1) (24.3-30.1) Sodium Level 137 MEQ/L 134 MEQ/L (136-145) (136-145) Potassium Level 3.7 MEQ/L 3.6 MEQ/L (3.5-5.1) (3.5-5.1) Chloride Level 99 MEQ/L 98 MEQ/L (98-107) (98-107) Carbon Dioxide Level 28.3 MEQ/L 27.2 MEQ/L (21.0-32.0) (21.0-32.0) Anion Gap 10 MEQ/L (5-15) 9 MEQ/L (5-15) Blood Urea Nitrogen 24 MG/DL (7-18) 25 MG/DL (7-18) Creatinine 1.86 MG/DL 1.90 MG/DL (0.50-1.00) (0.50-1.00) Estimat Glomerular Filtration 26 ML/MIN (>89) 25 ML/MIN (>89) Rate Random Glucose 109 MG/DL 117 MG/DL (74-106) (74-106) Calcium Level 8.2 MG/DL 8.2 MG/DL (8.5-10.1) (8.5-10.1) Magnesium Level 1.9 MG/DL 1.9 MG/DL (1.5-2.5) (1.5-2.5) White Blood Count 12.3 TH/MM3 (4.0-11.0) Red Blood Count 2.82 MIL/MM3 (4.00-5.30) Hemoglobin 9.0 GM/DL (11.6-15.3) Hematocrit 27.0 % (35.0-46.0) Mean Corpuscular Volume 95.8 FL (80.0-100.0) Mean Corpuscular Hemoglobin 32.1 PG (27.0-34.0) Mean Corpuscular Hemoglobin 33.5 % Concent (32.0-36.0) Red Cell Distribution Width 13.4 % (11.6-17.2) Platelet Count 327 TH/MM3 (150-450) Mean Platelet Volume 7.6 FL (7.0-11.0) Random Vancomycin Level 19.4 COMMENT Test 09/24/16 09/25/16 09/25/16 20:10 05:00 05:21 Sodium Level 133 MEQ/L 136 MEQ/L (136-145) (136-145) Potassium Level 3.3 MEQ/L 3.6 MEQ/L (3.5-5.1) (3.5-5.1) Chloride Level 97 MEQ/L 99 MEQ/L (98-107) (98-107) Carbon Dioxide Level 26.6 MEQ/L 28.4 MEQ/L (21.0-32.0) (21.0-32.0) Anion Gap 9 MEQ/L (5-15) 9 MEQ/L (5-15) Blood Urea Nitrogen 24 MG/DL (7-18) 23 MG/DL (7-18) Creatinine 1.81 MG/DL 1.83 MG/DL (0.50-1.00) (0.50-1.00) Estimat Glomerular Filtration 26 ML/MIN (>89) 26 ML/MIN (>89) Rate Random Glucose 142 MG/DL 126 MG/DL (74-106) (74-106) Calcium Level 8.1 MG/DL 8.3 MG/DL (8.5-10.1) (8.5-10.1) Phosphorus Level 3.9 MG/DL (2.5-4.9) Magnesium Level 1.8 MG/DL 1.8 MG/DL (1.5-2.5) (1.5-2.5) Total Bilirubin 0.6 MG/DL (0.2-1.0) Direct Bilirubin 0.3 MG/DL (0.0-0.2) Indirect Bilirubin 0.3 MG/DL (0.0-0.8) Aspartate Amino Transf 37 U/L (15-37) (AST/SGOT) Alanine Aminotransferase 34 U/L (10-53) (ALT/SGPT) Alkaline Phosphatase 180 U/L (45-117) Total Protein 4.9 GM/DL (6.4-8.2) Albumin 1.7 GM/DL (3.4-5.0) Activated Partial 51.0 SEC Thromboplast Time (24.3-30.1) White Blood Count 11.2 TH/MM3 (4.0-11.0) Red Blood Count 2.73 MIL/MM3 (4.00-5.30) Hemoglobin 8.8 GM/DL (11.6-15.3) Hematocrit 25.8 % (35.0-46.0) Mean Corpuscular Volume 94.6 FL (80.0-100.0) Mean Corpuscular Hemoglobin 32.1 PG (27.0-34.0) Mean Corpuscular Hemoglobin 33.9 % Concent (32.0-36.0) Red Cell Distribution Width 13.1 % (11.6-17.2) Platelet Count 309 TH/MM3 (150-450) Mean Platelet Volume 7.8 FL (7.0-11.0) . Result Diagram: 09/25/16 0521 09/25/16 0521 Imaging Last Impressions Chest X-Ray 09/25/16 0400 Signed Impressions: Service Date/Time: August 04:27 - CONCLUSION: Persistent consolidation lower lobes, left greater than right. Matthew Cheng MD Upper Extremity Ultrasound 09/21/16 0000 Signed Impressions: Service Date/Time: Wednesday, September 21, 2016 21:57 - CONCLUSION: Intact flow seen in the deep venous system of the deep venous system which can be imaged. Cannot image left subclavian or cephalic veins. Matthew Cheng MD Lower Extremity Ultrasound 09/21/16 0000 Signed Impressions: Service Date/Time: Wednesday, September 21, 2016 21:19 - CONCLUSION: Deep venous thrombosis within the right posterior tibial veins. Cornelio Ortega MD Head CT 09/20/16 2146 Signed Impressions: Service Date/Time: Tuesday, September 20, 2016 22:39 - CONCLUSION: 1. Mild cerebral atrophy and periventricular/subcortical white matter small vessel ischemic changes bilaterally. 2. No acute infarct, acute hemorrhage mass effect or extra axial fluid collections. Cornelio Ortega MD . Procedures * Intubation/mechanical ventilation * Left subclavian central line * Right radial arterial line . Assessment and Plan Disease Oriented Problem List: (1) Cardiopulmonary arrest (2) Respiratory failure (3) Pneumonia (4) Atrial fibrillation with RVR (5) Shock Comment: Probably a combination of septic shock (fever, elevated WBC, + urine cx) and cardiogenic shock. . (6) Intertrochanteric fracture of left femur (7) Acquired hypothyroidism (8) Hypoalbuminemia (9) UTI (urinary tract infection) Comment: Oleg galbrata . . (10) Deep venous thrombosis Comment: right posterior tibial veins. On heparin drip. . . (11) Acute kidney injury (12) Anemia Symptom Scale: (1) Pain 0-10 Scale: Unable to quantify Comment: Patient was experiencing pain at hip surgery site requiring intermittent use of hydrocodone 7.5 mg prior to her admission. Other possible sources of pain include intubations; prolonged bedbound status; catheters; SCD; etc. Pain currently appears to be controlled with a fentanyl drip. Still grimaces with stimulation. . (2) Dyspnea 0-10 Scale: Unable to quantify Comment: Dyspnea currently controlled with mechanical ventilation. Fentanyl drip would also serve to prevent air hunger. . (3) Encephalopathy 0-10 Scale: Unable to quantify (Patient is able to follow simple commands.) Comment: Patient able to follow some simple commands inconsistently in the ICU. Son reports patient has had altered mental status of varying severity for 6 months with hallucinations and paranoia. Specific etiology is unclear. Probably multi-factorial at this time. . Pertinent Non-Medical Issues Psychosocial: . One son. Had been living alone but declining, prior to hip fracture. Spiritual: Not an important part of her life. Legal: No advance directive, no financial will. Son is meeting elder finance attorney on 09/22/16. Son is health care proxy. Ethical issues impacting care: Patient is incapacitated. Uncertain if she will be able to regain capacity. . Important Contacts * Sergey Chase (son; proxy) [phone]; [phone]; [phone] * Verónica ([id number]) [phone] . Prognosis Patient suffered a cardiac arrest in the ED, has a low ejection fraction, is ventilator dependent, has a DVT, is pressor dependent, is malnourished, and has refractory tachycardia. Batch Records Clerk believes chances of survival are small at this time. Should patient survive the ICU, her chances of fpc survival remain poor. She would be appropriate for hospice services at such time that patient/family opts to focus on comfort care. . Code Status: Alternative Code (Son desires aggressive care short of cardiac shock and chest compression. ) Plan == Code Status; ALTERNATE CODE. (Have changed status to alternate code. Son would want patient re-intubated if extubated (accidentally or medically) and she developed respiratory distress. Son essentially wants full aggressive care short of chest compressions and shock at this time. == Decision maker: Though inconsistently able to follow simple commands, patient is critically ill and unable to weigh the benefits and burdens of treatment options. She is therefore incapacitated to make her own health care decisions. As there is no written designation of health care surrogate, and she is a , her son -- Sergey Stone -- becomes the legal health care proxy. Currently doubtful that the patient will re-gain capacity. == Goals: Though son understands that prognosis is very poor, he desires aggressive care short of chest compressions/shock. He is hoping she will awaken enough to facilitate legal issues enabling him to settle her estate should she pass or use her funds to care for her if she survives. == Pain: Pain sources noted above. Currently on fentanyl drip with titration orders which appears to be working. No further recommendations at this time. == Dyspnea: Currently managed with mechanical ventilation. Fentanyl drip is titratable and will also help to prevent any air hunger. No further recommendations at this time. == Encephalopathy: Specific etiology of encephalopathy is unclear. Had been having some paranoia/delusions/hallucinations prior to becoming ill. Current encephalopathy is likely multi-factorial. Patient is inconsistently able to follow simple commands. Currently unable to tolerate sedation vacations. Patient is not capable of making her own health care decisions at this time and it is uncertain if she will re-gain that capacity. Given her history of hallucinations and paranoia at home prior to her fall, she is likely to have delirium should she begin to recover in the ICU. == Son does not want to see her in this condition and is not coming in to visit. == Palliative care will continue to follow to assist with symptom management and to further clarify goals of medical treatment as the clinical course evolves. . Attestation To help prompt me to consider important information that might be impacting today's encounter and assessment, information from prior notes written by myself or my colleagues may have been "brought forward" into today's note. My signature on this note, however, is an attestation that I personally performed the exam, history, and/or decision-making noted today, and, unless otherwise indicated, the interactions with patient, family, and staff as well as the review of records all occurred today. I also attest that the listed assessment and stated plan reflect my best clinical judgment today based on the combination of historical information, prior notes, and today's exam/ interactions. When time spent is documented, it refers only to time spent today by the signer, or if indicated, combined time spent today by collaborating physician/nurse practitioner. Florian Cassidy MD Sep 25, 2016 10:24
--- NOTE | 2016-09-25 10:57 | HHI.CCPN ---
Subjective Remarks/Hospital Course Hospital Course: Admitted by EMS from rehab after left hip fracture repair 10 days ago at [place]. Found unresponsive at rehab facility, full arrest in our ED shortly after intubation. Recent cardiac echo: LVH, EF 45%, Mild-Moderate MR, Moderate , Moderate TR, PA HTN. Subjective: 09/21: neuro exam preserved, follows commands. however, remains in florid shock. art line placed and pulse contour analysis connected and patient remains in severe cardiogenic shock, lactate not clearing as expected. remains on vasopressors. 09/22: despite aggressive inotropic therapy, patient continues to decline. lasix 100mg iv x 1 given yesterday with minimal output. volume overload persists. lasix 200mg iv x 1 ordered this morning, again with only 300cc output. CI continues to be < 2. neuro intact, but cardiogenic shock worsening. will pursue aggressive forced diuresis. palliative consult placed. unlikely to survive. 09/23: Peripheral perfusion is acceptable but marginal. With EF 25% she has no reserve and volume loading is not an option. Low dose inotrope has been arrhythmogenic when tried. Will attempt rate control with digoxin. 09/24: Peripheral perfusion much improved. Continue milrinone while we dry out lungs and regain renal function. 09/25: Gas exchange improved. Persistent basilar consolidation. Tolerating SBTs. We may be able to get her extubated soon, but long-term prognosis is poor. Objective Vital Signs Date Time Temp Pulse Resp B/P Pulse Ox O2 Delivery O2 Flow Rate FiO2 09/25/16 08:49 100 35 09/25/16 04:00 98.2 102 16 138/65 09/24/16 19:00 Mechanical Ventilator Intake and Output 09/24/16 09/24/16 09/25/16 08:00 16:00 00:00 Intake Total 976 ml 1052 ml 1393 ml Output Total 1250 ml 1250 ml 800 ml Balance -274 ml -198 ml 593 ml Result Diagram: 09/25/1652009/25/16520 Objective Remarks Head: NL Neck: Supple, orally intubated. Lungs: Clear. Good air movement. Heart: Irreg Irreg, rate 90s, no JVD after diuresis. Abdomen: Soft, mildly distended. Few bowel sounds. Extremities: Warm, perfused. Resolving edema lower extremities. Neuro: RASS -1, follows commands. no focal deficits. A/P Assessment and Plan Assessment: 89yF recently post-op s/p hip arthroplasty. She now presents with what appears to be a respiratory arrest from the reports, which has been complicated by cardiac arrest requiring ACLS. She now persists in worsening cardiogenic shock with elevated troponins, elevated BNP. This does not appear to be acute coronary syndrome. Patient's troponins are downtrending and her echo is consistent with global hypokinesis s/p cardiac arrest. She does persist in global cardiogenic shock. Continue inotropic therapy. hold forced diuresis today - excellent response overnight. palliative consult. unlikely to survive. continue aggressive goals per son. DNR. off pathway and remains critically ill. Plan by systems: Neurologic: Metabolic encephalopathy Ammonia elevated Continue lactulose D/C versed, reduce fentanyl; goal RASS 0 Respiratory: Acute hypoxic and hypercarbic respiratory failure Vent bundle Head of bed at 30 Wean FiO2 for goal SPO2 greater than 90% Trend ABGs No SBT today given cardiogenic, tolerated reduced rate Cardiovascular: Cardiogenic shock- worsening. Status post cardiac arrest 09/20 Elevated troponins Type II NSTEMI/Demand Ischemia Acute CHF exacerbation, systolic, likely secondary to acute myocardial dysfunction postcardiac arrest Atrial fibrillation with rapid ventricular response Continue pulse contour analysis continue milrinone 0.375 mcg/kg/min Monitor urine outputs Trend lactates 2d echo: severe global hypokinesis, ef 20%. -- hold amio drip, a-fib appears permanent -- Digoxin for rate control, working well. Renal: Acute kidney injury- worsening Likely secondary to cardiogenic shock Acosta -- Strict I/Os FEN/GI: Acute protein calorie malnutritionsevere Hypokalemia Intravascular volume overload Nothing by mouth while in shock Lasix 200 mg IV 1 without benefit. -- bumex drip. -- diuril x 1. ICU electrolyte protocol serial BMP Heme/ID: Anemia secondary to acute blood loss from recent surgery Possible aspiration pneumonia Possible healthcare associated pneumonia DVT Trend CBC Continue Zosyn, azithromycin, vancomycin Follow-up cultures --patient with DVT while on Xarelto. start heparin drip. Endocrine: Hyperglycemia of critical illness -- SSI, medium scale, every 6 Prophylaxis: GI Prophylaxis Protonix DVT Prophylaxis -- SCDs hold xarelto. continue heparin drip Lines: Left subclavian triple-lumen catheter 09/20 Right radial arterial line 09/21 Dave Overall impression: Her progress is slow and she has multiple problems, all exacerbated by her advanced age. We may eventually get her extubated but long- term prognosis is poor. Ideally, once she is extubated, family chooses DNI/DNR status. Will restart xarelto, d/c heparin, d/c abx. Ric Reid MD Sep 25, 2016 10:57
[2016-09-25] MEDS: MILRINONE INJ 20 MG in SODIUM CHLORIDE 0.9% INJ 80 ML IV SCH ×2 (15:23→21:03)
[2016-09-25] MEDS ORDERED: HEPARIN-D5W INJ 250 ML IV SCH (16:00)
[2016-09-25] MEDS ORDERED: HEPARIN SODIUM - IV 2,000 UNITS/2 ML VIAL IV ONE (16:00)
[2016-09-25] MEDS: FUROSEMIDE 40 MG/4 ML VIAL IV PUSH SCH (17:51)
[2016-09-25] MEDS: RIVAROXABAN 10 MG TAB PO SCH (17:51)
[2016-09-25] MEDS ORDERED: HEPARIN SODIUM - IV 10,000 UNITS/10 ML VIAL IV PRN ×2 (22:00)
[2016-09-26] VITALS (9 sets, daily range): BP systolic 120–139; BP diastolic 53–64; PULSE 94–105; RESP 17–18; TEMP 98.2–98.8; O2SAT 96–100
[2016-09-26] MEDS: CHLORHEXIDINE GLUCONATE 2 % 1 PACK (2 CLOTHS) TOP SCH (04:00)
[2016-09-26 05:00] LABS: HEMATOCRIT 24.1 % (35.0-46.0); MEAN CELL VOLUME 93.9 FL (80.0-100.0); MEAN CORPUSCULAR HEMOGLOBIN 32.2 PG (27.0-34.0); MEAN CORPUSCULAR HGB CONC 34.3 % (32.0-36.0); PLATELET COUNT 297 TH/MM3 (150-450); RED BLOOD COUNT 2.57 MIL/MM3 (4.00-5.30); RED CELL DISTRIBUTION WIDTH 13.5 % (11.6-17.2); REVIEW FLAG FINAL
[2016-09-26 05:20] LABS: BICARBONATE 28.9 MEQ/L (21.0-32.0); POTASSIUM 3.6 MEQ/L (3.5-5.1)
[2016-09-26] MEDS: fentaNYL DRIP 250 ML IV SCH (05:44)
[2016-09-26] MEDS: MILRINONE INJ 20 MG in SODIUM CHLORIDE 0.9% INJ 80 ML IV SCH ×2 (08:10→15:13)
[2016-09-26] MEDS: PANTOPRAZOLE SODIUM 40 MG VIAL IV SCH (08:24)
[2016-09-26] MEDS: FUROSEMIDE 40 MG/4 ML VIAL IV PUSH SCH (08:24)
[2016-09-26] MEDS: BENEPROTEIN POWDER 1 PACK G-TUBE SCH ×2 (08:25→12:41)
[2016-09-26] MEDS: DIGOXIN 0.5 MG/2 ML VIAL IV PUSH SCH (08:25)
[2016-09-26] MEDS: DOCUSATE SODIUM 50 MG/SENNA 8.6 MG TAB PO SCH (08:25)
[2016-09-26] MEDS: RIVAROXABAN 10 MG TAB PO SCH (08:25)
--- NOTE | 2016-09-26 10:58 | HHI.CCPN ---
Subjective Remarks/Hospital Course Hospital Course: Admitted by EMS from rehab after left hip fracture repair 10 days ago at [place]. Found unresponsive at rehab facility, full arrest in our ED shortly after intubation. Recent cardiac echo: LVH, EF 45%, Mild-Moderate MR, Moderate , Moderate TR, PA HTN. Subjective: 09/21: neuro exam preserved, follows commands. however, remains in florid shock. art line placed and pulse contour analysis connected and patient remains in severe cardiogenic shock, lactate not clearing as expected. remains on vasopressors. 09/22: despite aggressive inotropic therapy, patient continues to decline. lasix 100mg iv x 1 given yesterday with minimal output. volume overload persists. lasix 200mg iv x 1 ordered this morning, again with only 300cc output. CI continues to be < 2. neuro intact, but cardiogenic shock worsening. will pursue aggressive forced diuresis. palliative consult placed. unlikely to survive. 09/23: Peripheral perfusion is acceptable but marginal. With EF 25% she has no reserve and volume loading is not an option. Low dose inotrope has been arrhythmogenic when tried. Will attempt rate control with digoxin. 09/24: Peripheral perfusion much improved. Continue milrinone while we dry out lungs and regain renal function. 09/25: Gas exchange improved. Persistent basilar consolidation. Tolerating SBTs. We may be able to get her extubated soon, but long-term prognosis is poor. 09/26: Will attempt aggressive weaning trial. Alternate code. Very weak still. Objective Vital Signs Date Time Temp Pulse Resp B/P Pulse Ox O2 Delivery O2 Flow Rate FiO2 09/26/16 08:05 100 35 09/26/16 08:00 98.6 95 18 129/58 09/26/16 07:00 Mechanical Ventilator Intake and Output 09/25/16 09/25/16 09/26/16 08:00 16:00 00:00 Intake Total 1353 ml 1071 ml 881 ml Output Total 425.0 ml 250 ml 800 ml Balance 928.0 ml 821 ml 81 ml Result Diagram: 09/26/1643909/26/16439 Objective Remarks Head: NL Neck: Supple, orally intubated. Lungs: Clear. Good air movement. Heart: Irreg Irreg, rate 90s, no JVD. Abdomen: Soft, mildly distended. Few bowel sounds. Extremities: Warm, perfused. Resolving edema lower extremities. Neuro: Sleepy., follows commands. no focal deficits. A/P Assessment and Plan Assessment: 89yF recently post-op s/p hip arthroplasty. She now presents with what appears to be a respiratory arrest from the reports, which has been complicated by cardiac arrest requiring ACLS. She now persists in worsening cardiogenic shock with elevated troponins, elevated BNP. This does not appear to be acute coronary syndrome. Patient's troponins are downtrending and her echo is consistent with global hypokinesis s/p cardiac arrest. She does persist in global cardiogenic shock. Continue inotropic therapy. hold forced diuresis today - excellent response overnight. palliative consult. unlikely to survive. continue aggressive goals per son. DNR. off pathway and remains critically ill. Plan by systems: Neurologic: Metabolic encephalopathy Ammonia elevated Continue lactulose D/C versed, d/c fentanyl; goal RASS 0 Respiratory: Acute hypoxic and hypercarbic respiratory failure Vent bundle Head of bed at 30 Wean FiO2 for goal SPO2 greater than 90% Trend ABGs SBTs today. Cardiovascular: Cardiogenic shock- worsening. Status post cardiac arrest 09/20 Elevated troponins Type II NSTEMI/Demand Ischemia Acute CHF exacerbation, systolic, likely secondary to acute myocardial dysfunction postcardiac arrest Atrial fibrillation with rapid ventricular response Continue pulse contour analysis continue milrinone 0.375 mcg/kg/min Monitor urine outputs Trend lactates 2d echo: severe global hypokinesis, ef 20%. -- hold amio drip, a-fib appears permanent -- Digoxin for rate control, working well. Renal: Acute kidney injury- worsening Likely secondary to cardiogenic shock Acosta -- Strict I/Os FEN/GI: Acute protein calorie malnutritionsevere Hypokalemia Intravascular volume overload Nothing by mouth while in shock Lasix 200 mg IV 1 without benefit. -- bumex drip. -- diuril x 1. ICU electrolyte protocol serial BMP --Continue diuretics Heme/ID: Anemia secondary to acute blood loss from recent surgery Possible aspiration pneumonia Possible healthcare associated pneumonia DVT Trend CBC Continue Zosyn, azithromycin, vancomycin Follow-up cultures --patient with DVT while on Xarelto. start heparin drip. Endocrine: Hyperglycemia of critical illness -- SSI, medium scale, every 6 Prophylaxis: GI Prophylaxis Protonix DVT Prophylaxis -- SCDs restart xarelto. d/c heparin drip Lines: Left subclavian triple-lumen catheter 09/20 Right radial arterial line 09/21 Dave Overall impression: Her progress is slow and she has multiple problems, all exacerbated by her advanced age. We may eventually get her extubated but long- term prognosis is poor. Ideally, once she is extubated, family considers DNI/ DNR status. Will restart xarelto, d/c heparin, d/c abx. Continue milrinone through extubation. Ric Reid MD Sep 26, 2016 10:58
--- NOTE | 2016-09-26 15:52 | PD.WCN.NOT ---
Wound Consult Description: Patient seen on [facility] for nursing documentation regarding right buttock skin tear with bilateral heel wounds. Communicated with: JenRN KENRICK Li Recommendation: Calazime skin protectant paste BID and PRN to right buttock moisture related full thickness skinloss. Bilateral heel Deep Tissue Injuries should be left open to air, floated off mattress surface, and sprayed with Cavilon skin prep BID and PRN Additional Information: Patient seen on [facility] for wound evaluation of right buttock moisture related full thickness skinloss with ~70% white tissue and ~30% pink tissue noted throughout wound bed with jagged wound margins measuring 1.5cm x 0.5cm x < 0.1cm. Wound was left open to air until Calazime could be obtained. Left heel sock is removed to reveal a deep tissue injury measuring 2.3cm x 2.1cm of intact non blanching purple discolored skin. Right heel sock was removed to reveal a deep tissue injury measuring 2.4cm x 2.1cm deflated blood blister with intact skin covering wound bed with purple wound margins. Heels were floated off mattress surface prior to leaving room. Adilia Copeland [facility] Sep 26, 2016 15:52
--- NOTE | 2016-09-26 16:46 | HHI.DS ---
Discharge Summary Admission Date Sep 20, 2016 at 22:43 Discharge Date: Sep 26, 2016 Admitting Diagnosis Respiratory Failure, Hypoxemic. (1) Cardiopulmonary arrest ICD Code: I46.9 Diagnosis: Principal (2) Respiratory failure ICD Code: J96.90 Diagnosis: Principal (3) Chronic systolic heart failure ICD Code: I50.22 Diagnosis: Principal (4) Encephalopathy ICD Code: G93.40 Diagnosis: Secondary (5) Atrial fibrillation with RVR ICD Code: I48.91 Diagnosis: Secondary Brief History Admitted by EMS from rehab after left hip fracture repair 10 days ago at [place]. Found unresponsive at rehab facility, full arrest in our ED shortly after intubation. Recent cardiac echo: LVH, EF 15 - 25%, Mild-Moderate MR, Moderate , Moderate TR, PA HTN. CBC/BMP: 09/26/16 0440 09/26/16 0440 Significant Findings Laboratory Tests Test 09/23/16 09/23/16 09/23/16 09/24/16 17:19 17:22 23:56 05:54 Vancomycin Level Trough 24.2 MCG/ML (5.0-10.0) Activated Partial 37.8 SEC 55.6 SEC Thromboplast Time (24.3-30.1) (24.3-30.1) Blood Urea Nitrogen 24 MG/DL (7-18) 25 MG/DL (7-18) Creatinine 1.86 MG/DL 1.90 MG/DL (0.50-1.00) (0.50-1.00) Estimat Glomerular Filtration 26 ML/MIN (>89) 25 ML/MIN (>89) Rate Random Glucose 109 MG/DL 117 MG/DL (74-106) (74-106) Calcium Level 8.2 MG/DL 8.2 MG/DL (8.5-10.1) (8.5-10.1) White Blood Count 12.3 TH/MM3 (4.0-11.0) Red Blood Count 2.82 MIL/MM3 (4.00-5.30) Hemoglobin 9.0 GM/DL (11.6-15.3) Hematocrit 27.0 % (35.0-46.0) Sodium Level 134 MEQ/L (136-145) Test 09/24/16 09/24/16 09/25/16 09/25/16 07:00 20:10 05:00 05:21 Activated Partial 50.4 SEC 51.0 SEC Thromboplast Time (24.3-30.1) (24.3-30.1) Sodium Level 133 MEQ/L (136-145) Potassium Level 3.3 MEQ/L (3.5-5.1) Chloride Level 97 MEQ/L (98-107) Blood Urea Nitrogen 24 MG/DL (7-18) 23 MG/DL (7-18) Creatinine 1.81 MG/DL 1.83 MG/DL (0.50-1.00) (0.50-1.00) Estimat Glomerular Filtration 26 ML/MIN (>89) 26 ML/MIN (>89) Rate Random Glucose 142 MG/DL 126 MG/DL (74-106) (74-106) Calcium Level 8.1 MG/DL 8.3 MG/DL (8.5-10.1) (8.5-10.1) Direct Bilirubin 0.3 MG/DL (0.0-0.2) Alkaline Phosphatase 180 U/L (45-117) Total Protein 4.9 GM/DL (6.4-8.2) Albumin 1.7 GM/DL (3.4-5.0) White Blood Count 11.2 TH/MM3 (4.0-11.0) Red Blood Count 2.73 MIL/MM3 (4.00-5.30) Hemoglobin 8.8 GM/DL (11.6-15.3) Hematocrit 25.8 % (35.0-46.0) Test 09/26/16 04:40 Red Blood Count 2.57 MIL/MM3 (4.00-5.30) Hemoglobin 8.3 GM/DL (11.6-15.3) Hematocrit 24.1 % (35.0-46.0) Blood Urea Nitrogen 26 MG/DL (7-18) Creatinine 1.81 MG/DL (0.50-1.00) Estimat Glomerular Filtration 26 ML/MIN (>89) Rate Random Glucose 133 MG/DL (74-106) Calcium Level 8.3 MG/DL (8.5-10.1) PE at Discharge Hospital Course Hospital Course: Admitted by EMS from rehab after left hip fracture repair 10 days ago at [place]. Found unresponsive at rehab facility, full arrest in our ED shortly after intubation. Recent cardiac echo: LVH, EF 15 - 25%, Mild-Moderate MR, Moderate , Moderate TR, PA HTN. Subjective: 09/21: neuro exam preserved, follows commands. however, remains in florid shock. art line placed and pulse contour analysis connected and patient remains in severe cardiogenic shock, lactate not clearing as expected. remains on vasopressors. 09/22: despite aggressive inotropic therapy, patient continues to decline. lasix 100mg iv x 1 given yesterday with minimal output. volume overload persists. lasix 200mg iv x 1 ordered this morning, again with only 300cc output. CI continues to be < 2. neuro intact, but cardiogenic shock worsening. will pursue aggressive forced diuresis. palliative consult placed. unlikely to survive. 09/23: Peripheral perfusion is acceptable but marginal. With EF 25% she has no reserve and volume loading is not an option. Low dose inotrope has been arrhythmogenic when tried. Will attempt rate control with digoxin. 09/24: Peripheral perfusion much improved. Continue milrinone while we dry out lungs and regain renal function. 09/25: Gas exchange improved. Persistent basilar consolidation. Tolerating SBTs. We may be able to get her extubated soon, but long-term prognosis is poor. 09/26: She is much stronger on spontaneous breathing trial today. FiO2 35% and she gestures for us to remove the endotracheal tube. Nods head yes to question about extubation. Extubated and sats remained > 92% on NC O2 4 liters. She developed sudden ventricular fibrillation after about 15 mins however. As alternative code status with no compressions, epinephrine was injected but no response. She continued in fibrillation and at 1630 hours. Pt Condition on Discharge: Deteriorating Ric Reid MD Sep 26, 2016 16:46
--- NOTE | 2016-09-26 16:49 | DEATH SUM ---
Summary Demographics Date Pronounced : Sep 26, 2016 Time Of : 16:30 Pronounced By: Pablo Reid M.D. Preliminary Cause of : Cardiac arrest Ric Reid MD Sep 26, 2016 16:49
[2016-09-26] MEDS ORDERED: EPINEPHrine HCL (1:10,000) 1 MG/10 ML SYRINGE IV ONE (18:20)
== END 2016-09-26 18:21 | disposition expired | DRG 207 ==
LOC: NEPE 21:35 → NEDA 22:43 → N03B 23:45
PROVIDERS: ADMIT Surgery Surgical Critical Care; ATTEND Surgery Surgical Critical Care
PROC: 5A1955Z Respiratory Ventilation, Greater than 96 Consecutive Hours (ICD-10-PCS; principal; 2016-09-20)
PROC: 5A12012 Performance of Cardiac Output, Single, Manual (ICD-10-PCS; 2016-09-20)
PROC: 0BH17EZ Insertion of Endotracheal Airway into Trachea, Via Natural or Artificial Opening (ICD-10-PCS; 2016-09-20)
PROC: 02HV33Z Insertion of Infusion Device into Superior Vena Cava, Percutaneous Approach (ICD-10-PCS; 2016-09-20)
PROC: 03HY32Z Insertion of Monitoring Device into Upper Artery, Percutaneous Approach (ICD-10-PCS; 2016-09-21)
DX: J96.02 Acute respiratory failure with hypercapnia (principal); I21.4 Non-ST elevation (NSTEMI) myocardial infarction; R57.0 Cardiogenic shock; I49.01 Ventricular fibrillation; E03.5 Myxedema coma; E43 Unspecified severe protein-calorie malnutrition; J18.9 Pneumonia, unspecified organism; I50.21 Acute systolic (congestive) heart failure; G93.41 Metabolic encephalopathy; I11.0 Hypertensive heart disease with heart failure; I50.23 Acute on chronic systolic (congestive) heart failure; N17.9 Acute kidney failure, unspecified; R18.8 Other ascites; I82.441 Acute embolism and thrombosis of right tibial vein; D62 Acute posthemorrhagic anemia; J96.01 Acute respiratory failure with hypoxia; I48.91 Unspecified atrial fibrillation; E87.6 Hypokalemia; M19.90 Unspecified osteoarthritis, unspecified site; I08.3 Combined rheumatic disorders of mitral, aortic and tricuspid valves; I27.2 Other secondary pulmonary hypertension; E78.5 Hyperlipidemia, unspecified; E03.9 Hypothyroidism, unspecified; Z66 Do not resuscitate; R73.9 Hyperglycemia, unspecified; Z79.01 Long term (current) use of anticoagulants; Z86.73 Personal history of transient ischemic attack (TIA), and cerebral infarction without residual deficits; Z87.891 Personal history of nicotine dependence; Z96.642 Presence of left artificial hip joint
CPT/HCPCS: 31500; 36556; 36600; 36620; 51702; 70450; 71010; 80048; 80053; 80076; 80202; 81001; 82140; 82550; 82805; 82948; 83605; 83735; 83880; 84100; 84443; 84484; 85007; 85025; 85027; 85384; 85610; 85730; 87040; 87070; 87086; 87205; 87641; 92950; 93005; 93306; 93970; 94002; 94003; 94640; 94664; 96374; 96375; C9113; J0171; J0282; J0330; J0456; J1160; J1205; J1250; J1644; J1720; J1940; J2250; J2260; J2270; J2370; J2543; J3010; J3370; J3475; J3480; J7030; J7040; J7050; J7060